=== PATIENT | male | born 1965 | race Caucasian/White ===

== ENCOUNTER 2018-09-21 18:38 | Inpatient (IN) | payer OTHER ==
[~2018-09-21] VITALS: Ht 175.3 cm; Wt 103.0 kg
[2018-09-22] VITALS (21 sets, daily range): BP systolic 115–148; BP diastolic 60–85; PULSE 91–100; RESP 18–32
[2018-09-22] MEDS ORDERED: ACET-2047 PO (02:11)
[2018-09-22] MEDS ORDERED: MORP2DIS2 IV (02:11)
[2018-09-22] MEDS ORDERED: ONDA4AMP IV (02:11)
[2018-09-22] MEDS ORDERED: HEPA500021 IJ (02:11)
[2018-09-22] MEDS ORDERED: MORP4CAR IV (02:11)
[2018-09-22] MEDS ORDERED: POTA20IV IV (02:11)
[2018-09-22] MEDS ORDERED: PIPE3.374 IVPB (02:11)
--- NOTE | 2018-09-22 02:25 | HP ---
Date/Time of Note Date/Time of Note DATE: 09/22/18 TIME: 02:24 Assessment/Plan VTE Prophylaxis SCD applied (from Ns): Yes Pharmacological prophylaxis: NA/contraindicated Pharm contraindication: low risk/ambulating Assessment/Plan Hospital Course This is a 53-year-old male being admitted to the [facility] floor for: #1 gallstone pancreatitis: Patient initially was suspected to have choledocholithiasis and pancreatitis given that he presented with elevated liver function test. The liver function tests have some subsequently improved. At the current time we will check stat CBC CMP and lipase levels. At the current time patient is not complaining of abdominal pain. We will keep the patient n.p.o. Aggressive IV fluid hydration with normal saline. MRCP at the transferring facility was negative for choledocholithiasis and there was no dilatation of the common bile duct noted. Surgery was consulted there and plan was for cholecystectomy. Will check PT/PTT/INR #2 questionable cholecystitis: Patient was seen by surgery at the transfer facility and clinically patient was diagnosed with cholecystitis. At the current time we will keep patient n.p.o., IV fluid hydration with normal saline as per #1. Zosyn every 8 hours. Will consult surgery Dr. Castro #3 obesity: We will check hemoglobin A1c, lipid panel, TSH #4 transaminitis: Initially had elevated AST and ALT which subsequently were downtrending, will check repeat LFTs now. Likely elevated from gallstone which likely passed through the biliary tract. #5 DVT GI prophylaxis: SCDs, no GI prophylaxis indicated Further treatment strategy will be implemented as per the clinical course. HPI/ROS Admit Date/Time Admit Date/Time Sep 22, 2018 at 01:17 Hx of Present Illness Chief complaint: Right-sided abdominal pain This is a 53-year-old gentleman with no past medical history who was diagnosed with gallstone pancreatitis at [facility]. Patient was subsequently transferred to [facility] secondary to insurance purposes. Patient originally presented on 09/18/2018 where he complained of right upper quadrant pain. He also had nausea and vomiting. He reported the pain at that time was 9 out of 10 in intensity and was nonradiating and was mostly roll located in the right upper quadrant though he did have some lower abdominal pain and sharp cramping. He denied any diarrhea or any fevers or chills. He had a CT scan performed in the emergency department which showed: Acute pancreatitis, calcified wall of the fundal region of the gallbladder versus prominent gallstone. Diverticulosis of the colon. Moderate sized hiatal hernia. Nonobstructive tiny stones in the right kidney. Bilateral inguinal hernias containing fat left larger than right. Patient also had an ultrasound of the abdomen showed: Gallstone versus focal calcification of the gallbladder fundus as has been described on the recent CT. Negative sonographic Sanchez's. Patient was admitted to the hospital there and also had an MRCP performed which according to the notes in the chart was negative for any common bile duct stone. Patient was also seen by general surgery and recommendation was to have cholecystectomy as there was clinical concern for possible cholecystitis. Vitals on arrival: Temperature 98.5 heart rate 94 respirations 18 blood pressure 121/67 SPO2 99% room air Pertinent laboratory results please see chart for full details: Sodium 140/potassium 3.3/chloride 104/bicarb 23/BUN 14/creatinine 1.5. Total bili 1.8 direct bili 1.1 AST 656 ALT 693 and alk phos 143 White blood cell 15 hemoglobin 16 hematocrit 46 platelets 251,000 urinalysis negative leukocytes negative nitrites. MRI of the abdomen without contrast showed: Cholelithiasis confirmed on examination. No evidence of biliary ductal dilatation or choledocholithiasis. Acute pancreatitis. Allergies: Flu vaccine medications: None ROS Const: As per HPI Eyes : No pain discharge or redness or change in visual acuity ENT: No pain, sore throat, congestion, congestion, dysphagia or discharge Respiratory: No shortness of breath, cough, sputum, wheezing, or pleuritic pain Cardiovascular: No chest pain, palpitation, PND, or edema GI : As per HPI Genitourinary: No dysuria, hematuria, flank pain , discharge or CVA tenderness Musculoskeletal: No joint pain, back pain, neck pain, restricted range of motion in neck or joints Skin: No rash, bruising or hives Neuro: No headache, dizziness, syncope, seizure, focal weakness Endocrine: No polyuria, polydipsia, temperature intolerance Psych: No hallucination, depression, anxiety or suicidal ideation PMH/Family/Social Past Medical History Medical History: no pertinent history Medications Current Medications Acetaminophen (Tylenol Tab) 650 mg Q6H PRN PO MILD PAIN(1-3)OR ELEVATED TEMP; Start 09/22/18 at 02:30; Status UNV Heparin Sodium (Porcine) (Heparin (5000 Units/0.5 ml)) 5,000 unit Q12 SC ; Start 09/22/18 at 09:00; Status UNV Morphine Sulfate (morphine) 2 mg Q4H PRN IV moderate pain; Start 09/22/18 at 02:30; Status UNV Morphine Sulfate (morphine) 4 mg Q4H PRN IV SEVERE PAIN LEVEL 7-10; Start 09/22/18 at 02:30; Status UNV Ondansetron HCl (Zofran Inj) 4 mg Q4 PRN IV NAUSEA AND/OR VOMITING; Start 09/22/18 at 02:30; Status UNV Miscellaneous Information 3.375 gm Q8 IVPB ; Start 09/22/18 at 06:00; Status UNV Sodium Chloride 1,000 ml @ 200 mls/hr Q5H IV ; Start 09/22/18 at 02:19; Status UNV IV Flush (NS 3 ml) 3 ml PER PROTOCOL IV ; Start 09/22/18 at 02:30; Status UNV Ondansetron HCl (Zofran Inj) 4 mg Q6H PRN IV NAUSEA AND/OR VOMITING; Start 09/22/18 at 02:30; Status UNV Acetaminophen (Tylenol Tab) 650 mg Q6H PRN PO PAIN LEVEL 1-3 OR FEVER; Start 09/22/18 at 02:30; Status UNV Docusate Sodium (Colace) 100 mg Q12H PRN PO CONSTIPATION; Start 09/22/18 at 02:30; Status UNV Bisacodyl (Dulcolax) 5 mg DAILY PRN PO CONSTIPATION; Start 09/22/18 at 02:30; Status UNV Uncoded Allergies: flu vaccine (Allergy, Unknown, 09/22/18) Past Surgical History Past Surgical Hx: no surgical history Family History Significant Family History: no pertinent family hx Social History Alcohol Use: none Smoking Status: Never smoker Drug Use: none Exam/Review of Systems Exam Exam General: Patient is well-developed well-nourished The patient is alert oriented -3 lying comfortably in bed. HEENT: Atraumatic, normocephalic. The pupils are equal, round and reactive. Extraocular motor are intact Neck: Supple with full range of motion. No rigidity or meningismus Chest: Nontender Lungs: Clear to auscultation bilaterally no crackles rales or wheezing Heart: Normal S1-S2, Regular rhythm and rate. No murmur, S3, or S4 Abdomen: Soft , nontender, nondistended , bowel sounds are present. No guarding no rebound tenderness , No masses or organomegaly. No costovertebral temporal angle mass Extremities: Normal to inspection, no edema no cyanosis Neurologic: Normal mental status, speech normal, cranial nerves II through XII are intact, motor and sensory are intact, no focal weakness VAIBHAV SKINNER Sep 22, 2018 02:25
[2018-09-22] MEDS ORDERED: NACL 0.9% 3 ML SYG IV SCH (02:30)
[2018-09-22] MEDS ORDERED: ACETAMINOPHEN 325 MG TAB PO PRN (02:30)
[2018-09-22] MEDS ORDERED: ONDANSETRON 4 MG INJ IV PRN ×3 (02:30→18:30)
[2018-09-22] MEDS ORDERED: BISACODYL (EC) 5 MG TAB PO PRN (02:30)
[2018-09-22] MEDS ORDERED: DOCUSATE SODIUM 100 MG CAP PO PRN (02:30)
[2018-09-22] MEDS: SOD CHLORIDE 0.9% 1,000 ML IV SCH ×4 (02:53→22:34)
[2018-09-22] MEDS ORDERED: PIPER-TAZO 3.375 GM IV (PMX) 100 ML ONE (04:26)
[2018-09-22] MEDS: PIPER-TAZO 3.375 GM IV (PMX) 100 ML IVPB SCH ×4 (05:04→21:59)
[2018-09-22] MEDS: morphine SULFATE/PF (2 MG/2 ML) SYG IV PRN ×2 (06:25→13:51)
[2018-09-22] MEDS ORDERED: DEXAMETHASONE 4 MG/ML 5 ML INJ ONE (07:00)
[2018-09-22] MEDS ORDERED: SUCCINYLCHOLINE CHLORIDE 100 MG/5 ML SYG IV ONE (07:00)
[2018-09-22] MEDS ORDERED: DESFLURANE 15 MIN ONE (07:00)
--- NOTE | 2018-09-22 08:42 | PN ---
Date/Time of Note Date/Time of Note DATE: 09/22/18 TIME: 08:42 Assessment/Plan VTE Prophylaxis Risk score (from Ns)>0 risk: 2 SCD applied (from Ns): Yes Pharmacological prophylaxis: NA/contraindicated Pharm contraindication: low risk/ambulating Lines/Catheters IV Catheter Type (from Nrsg): Peripheral IV Assessment/Plan Assessment/Plan 1. Gallstone pancreatitis- resolved - Lipase normalized and denies any nausea or vomiting - MRCP performed at OSH was negative for choledocholithiasis 2. Cholelithiasis, ? acute cholecystitis - Surgery on board to evaluate need for lap eleazar - Zosyn on board - Pain control - Continue IVF 3. Obesity - diet modification counseling offered 4. Disposition - Awaiting Surgery recommendations and will continue on IV antibiotics and keep NPO for now Result Diagram: 09/22/187 09/22/18 0347 Results 24hrs Laboratory Tests Test 09/22/18 03:47 White Blood Count 14.9 H Red Blood Count 4.05 L Hemoglobin 13.1 L Hematocrit 37.2 L Mean Corpuscular Volume 91.9 Mean Corpuscular Hemoglobin 32.3 Mean Corpuscular Hemoglobin Concent 35.2 Red Cell Distribution Width 12.1 Platelet Count 217 Mean Platelet Volume 10.9 H Immature Granulocytes % 0.500 H Neutrophils % 80.8 H Lymphocytes % 10.4 L Monocytes % 7.2 Eosinophils % 0.9 Basophils % 0.2 Nucleated Red Blood Cells % 0.0 Immature Granulocytes # 0.080 H Neutrophils # 12.0 H Lymphocytes # 1.6 Monocytes # 1.1 H Eosinophils # 0.1 Basophils # 0.0 Nucleated Red Blood Cells # 0.0 Sodium Level 140 Potassium Level 3.5 Chloride Level 106 Carbon Dioxide Level 23 Anion Gap 11 Blood Urea Nitrogen 10 Creatinine 0.62 Est Glomerular Filtrat Rate mL/min > 60 Glucose Level 120 Hemoglobin A1c 5.5 Lactic Acid Level 0.8 Calcium Level 8.8 Total Bilirubin 1.1 Direct Bilirubin 0.00 Indirect Bilirubin 1.1 Aspartate Amino Transf (AST/SGOT) 21 Alanine Aminotransferase (ALT/SGPT) 95 H Alkaline Phosphatase 111 Total Protein 6.9 Albumin 3.5 Globulin 3.40 H Albumin/Globulin Ratio 1.02 Triglycerides Level 107 Cholesterol Level 117 LDL Cholesterol, Calculated 74 HDL Cholesterol 22 L Cholesterol/HDL Ratio 5.3 Lipase 57 Subjective 24 Hr Interval Summary Free Text/Dictation Patient states he's feeling better but still with RUQ discomfort. Discussed his LFT and lipase normalizing overnight. Pending Surgical evaluation. Exam/Review of Systems Vital Signs Vitals Vital Signs Date Temp Pulse Resp B/P (MAP) Pulse Ox O2 O2 Flow FiO2 Time Delivery Rate 09/22/18 98.9 91 19 115/60 96 Room Air 08:00 (78) Intake and Output 09/21/18 09/21/18 09/22/18 1515:00 23:00 07:00 IntakeIntake Total 500 ml BalanceBalance 500 ml Exam General: Patient is well-developed well-nourished. no acute distress Neck: Supple Chest: Nontender Lungs: Clear to auscultation bilaterally no crackles rales or wheezing Heart: Normal S1-S2, Regular rhythm and rate. No murmur, S3, or S4 Abdomen: Soft , tender to palpation RUQ, +Sanchez sign, nondistended , bowel sounds are present. No guarding no rebound tenderness Extremities: Normal to inspection, no edema no cyanosis Medications Medications Current Medications Heparin Sodium (Porcine) (Heparin (5000 Units/0.5 ml)) 5,000 unit Q12 SC ; Start 09/22/18 at 09:00 Morphine Sulfate (morphine SULFATE (PF)) 2 mg Q4H PRN IV moderate pain Last administered on 09/22/18at 06:25; Admin Dose 2 MG; Start 09/22/18 at 02:30 Morphine Sulfate (morphine) 4 mg Q4H PRN IV SEVERE PAIN LEVEL 7-10; Start 09/22/18 at 02:30 Ondansetron HCl (Zofran Inj) 4 mg Q4 PRN IV NAUSEA AND/OR VOMITING; Start 09/22/18 at 02:30 Sodium Chloride 1,000 ml @ 200 mls/hr Q5H IV Last administered on 09/22/18at 02:53; Admin Dose 200 MLS/HR; Start 09/22/18 at 02:19 IV Flush (NS 3 ml) 3 ml PER PROTOCOL IV ; Start 09/22/18 at 02:30 Acetaminophen (Tylenol Tab) 650 mg Q6H PRN PO PAIN LEVEL 1-3 OR FEVER; Start 09/22/18 at 02:30 Docusate Sodium (Colace) 100 mg Q12H PRN PO CONSTIPATION; Start 09/22/18 at 02:30 Bisacodyl (Dulcolax) 5 mg DAILY PRN PO CONSTIPATION; Start 09/22/18 at 02:30 Piperacillin Sod/ Tazobactam Sod 100 ml @ 200 mls/hr Q8 IVPB Last administered on 09/22/18at 05:04; Admin Dose 200 MLS/HR; Start 09/22/18 at 06:00 RADHA HERNANDES MD Sep 22, 2018 08:42
[2018-09-22] MEDS: HEPARIN 5,000 UNIT/0.5 ML VIAL SC SCH ×2 (09:00→21:00)
--- NOTE | 2018-09-22 14:57 | CONS ---
Date/Time of Note Date/Time of Note DATE: 09/22/18 TIME: 14:31 Assessment/Plan Assessment/Plan Assessment/Plan 1. Gallstone pancreatitis: Lipase normalized 2. 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 Diverticulosis without diverticulitis: -Lifestyle changes 4. Mild fatty liver: With minimally elevated ALT -Encourage weight loss 5. Bilateral inguinal hernias -Encourage weight loss -Eventual surgical repair 6. Leukocytosis:Improving -Trend 7. Hyperbilirubinemia: No MR evidence of choledocholithiasis, normalized Thank you. Patient seen and examined in collaboration with Dr. Freddie Castro. Result Diagram: 09/22/1834609/22/18 034 Results 24hrs Laboratory Tests Test 09/22/18 03:47 09/22/18 07:17 White Blood Count 14.9 H Red Blood Count 4.05 L Hemoglobin 13.1 L Hematocrit 37.2 L Mean Corpuscular Volume 91.9 Mean Corpuscular Hemoglobin 32.3 Mean Corpuscular Hemoglobin Concent 35.2 Red Cell Distribution Width 12.1 Platelet Count 217 Mean Platelet Volume 10.9 H Immature Granulocytes % 0.500 H Neutrophils % 80.8 H Lymphocytes % 10.4 L Monocytes % 7.2 Eosinophils % 0.9 Basophils % 0.2 Nucleated Red Blood Cells % 0.0 Immature Granulocytes # 0.080 H Neutrophils # 12.0 H Lymphocytes # 1.6 Monocytes # 1.1 H Eosinophils # 0.1 Basophils # 0.0 Nucleated Red Blood Cells # 0.0 Sodium Level 140 Potassium Level 3.5 Chloride Level 106 Carbon Dioxide Level 23 Anion Gap 11 Blood Urea Nitrogen 10 Creatinine 0.62 Est Glomerular Filtrat Rate mL/min > 60 Glucose Level 120 Hemoglobin A1c 5.5 Lactic Acid Level 0.8 Calcium Level 8.8 Total Bilirubin 1.1 Direct Bilirubin 0.00 Indirect Bilirubin 1.1 Aspartate Amino Transf (AST/SGOT) 21 Alanine Aminotransferase (ALT/SGPT) 95 H Alkaline Phosphatase 111 Total Protein 6.9 Albumin 3.5 Globulin 3.40 H Albumin/Globulin Ratio 1.02 Triglycerides Level 107 Cholesterol Level 117 LDL Cholesterol, Calculated 74 HDL Cholesterol 22 L Cholesterol/HDL Ratio 5.3 Lipase 57 Prothrombin Time 14.2 Prothrombin Time Ratio 1.1 INR International Normalized Ratio 1.09 Activated Partial Thromboplast Time 39.7 H Consultation Date/Type/Reason Admit Date/Time Sep 22, 2018 at 01:17 Date of Consultation: Sep 22, 2018 Type of Consult Surgical Reason for Consultation Cholelithiasis, gallstone pancreatitis Requesting Provider: VAIBHAV SKINNER Hx of Present Illness Ivan Guajardo is a 53-year-old man without significant past medical history who was transferred from outside facility with diagnosis of gallstone pancreatitis. He initially presented to outside hospital with complaints of abdominal pain periumbilical. Pain was described as sharp and cramping. He denies fevers chills, congested cough, chest pain, palpitations, change in bowel or bladder habits, diarrhea, dysuria. No noted precipitating factors. CT of the abdomen showed enlargement of the pancreas with moderate peripancreatic inflammation consistent with acute pancreatitis, Calcified wall the fundal region of gallbladder versus gallstone. Laboratory findings include elevated WBC of 15.6, elevated total bilirubin and ALT, as well as elevated lipase. MRCP was performed without evidence of choledocholithiasis. He was also being treated for possible cholecystitis at outside hospital. On exam, he is comfortable. No acute abdominal pain with negative Sanchez's by palpation. General surgery was asked to evaluate. 12 point review of systems was performed and is negative except for stated in HPI. Past Medical History Obesity: BMI 34 Cholelithiasis Medications Current Medications Heparin Sodium (Porcine) (Heparin (5000 Units/0.5 ml)) 5,000 unit Q12 SC ; Start 09/22/18 at 09:00 Morphine Sulfate (morphine SULFATE (PF)) 2 mg Q4H PRN IV moderate pain Last administered on 09/22/18at 13:51; Admin Dose 2 MG; Start 09/22/18 at 02:30 Morphine Sulfate (morphine) 4 mg Q4H PRN IV SEVERE PAIN LEVEL 7-10; Start 09/22/18 at 02:30 Ondansetron HCl (Zofran Inj) 4 mg Q4 PRN IV NAUSEA AND/OR VOMITING; Start 09/22/18 at 02:30 Sodium Chloride 1,000 ml @ 100 mls/hr Q10H IV Last administered on 09/22/18at 10:01; Admin Dose 200 MLS/HR; Start 09/22/18 at 02:19 IV Flush (NS 3 ml) 3 ml PER PROTOCOL IV ; Start 09/22/18 at 02:30 Acetaminophen (Tylenol Tab) 650 mg Q6H PRN PO PAIN LEVEL 1-3 OR FEVER; Start 09/22/18 at 02:30 Docusate Sodium (Colace) 100 mg Q12H PRN PO CONSTIPATION; Start 09/22/18 at 02:30 Bisacodyl (Dulcolax) 5 mg DAILY PRN PO CONSTIPATION; Start 09/22/18 at 02:30 Piperacillin Sod/ Tazobactam Sod 100 ml @ 200 mls/hr Q8 IVPB Last administered on 09/22/18at 13:46; Admin Dose 200 MLS/HR; Start 09/22/18 at 06:00 Allergies: Uncoded Allergies: flu vaccine (Allergy, Unknown, 09/22/18) Past Surgical History Past Surgical Hx: no surgical history Family History Significant Family History: no pertinent family hx Social History Alcohol Use: other (Every 2 weeks 6-8 beers) Smoking Status: Never smoker Drug Use: none Exam/Review of Systems Vital Signs Vitals Vital Signs Date Temp Pulse Resp B/P (MAP) Pulse Ox O2 O2 Flow FiO2 Time Delivery Rate 09/22/18 98.9 91 19 115/60 96 Room Air 08:00 (78) Intake and Output 09/21/18 09/21/18 09/22/18 1515:00 23:00 07:00 IntakeIntake Total 500 ml BalanceBalance 500 ml Exam Constitutional: alert, oriented Psych: nl mood/affect; No anxiety Head: normocephalic, atraumatic Eyes: nl conjunctiva, EOMI, nl sclera ENMT: nl external ears & nose, nl lips & teeth, mucosa pink and moist Neck: supple, non-tender; No jvd Respiratory: No congested cough Cardiovascular: regular rate and rhythm, nl pulses; No edema Gastrointestinal: soft, non-tender, distended ( minimal) Musculoskeletal: nl extremities to inspection, nl gait and stance Extremities: normal pulses Neurological: nl mental status, nl speech, nl strength Skin: No rash or lesions Medications Medications Current Medications Heparin Sodium (Porcine) (Heparin (5000 Units/0.5 ml)) 5,000 unit Q12 SC ; Start 09/22/18 at 09:00 Morphine Sulfate (morphine SULFATE (PF)) 2 mg Q4H PRN IV moderate pain Last administered on 09/22/18at 13:51; Admin Dose 2 MG; Start 09/22/18 at 02:30 Morphine Sulfate (morphine) 4 mg Q4H PRN IV SEVERE PAIN LEVEL 7-10; Start 09/22 at 02:30 Ondansetron HCl (Zofran Inj) 4 mg Q4 PRN IV NAUSEA AND/OR VOMITING; Start 09/22/18 at 02:30 Sodium Chloride 1,000 ml @ 100 mls/hr Q10H IV Last administered on 09/22/18at 10:01; Admin Dose 200 MLS/HR; Start 09/22/18 at 02:19 IV Flush (NS 3 ml) 3 ml PER PROTOCOL IV ; Start 09/22/18 at 02:30 Acetaminophen (Tylenol Tab) 650 mg Q6H PRN PO PAIN LEVEL 1-3 OR FEVER; Start 09/22/18 at 02:30 Docusate Sodium (Colace) 100 mg Q12H PRN PO CONSTIPATION; Start 09/22/18 at 02:30 Bisacodyl (Dulcolax) 5 mg DAILY PRN PO CONSTIPATION; Start 09/22/18 at 02:30 Piperacillin Sod/ Tazobactam Sod 100 ml @ 200 mls/hr Q8 IVPB Last administered on 09/22/18at 13:46; Admin Dose 200 MLS/HR; Start 09/22/18 at 06:00 RACHEL BOBBY NP Sep 22, 2018 14:57
--- NOTE | 2018-09-22 18:06 | PREAC ---
Date/Time of Note Date/Time of Note DATE: 09/22/18 TIME: 18:05 Anesthesia Eval and Record Evaluation Time Pre-Procedure Interview DATE: 09/22/18 TIME: 18:05 Age 53 Sex male NPO: 8 hrs Preoperative diagnosis acute pancreatitis Planned procedure lap eleazar Past Medical History Past Medical History: Includes GI: Obesity, Other (fatty liver) Surgery & Anesthesia Issues No known issue Meds Anticoagulation: No Beta Marv within 24 hr: No Reason Beta Marv not given: Pt. not on B-Marv Reported Medications Morphine (Morphine) 2 Mg/1 Ml Disp.syrin, 2 MG IV Q4H PRN for moderate pain, EA 09/22/18 Morphine Sulfate* (Morphine*) 4 Mg/1 Ml Cartridge, 4 MG IV Q4H PRN for SEVERE PAIN LEVEL 7-10, SYR 09/22/18 Heparin Sodium,Porcine/Pf (HEPARIN SOD 5,000 UNIT/ 0.5 ML) 5,000 Unit/0.5 Ml Vial, 5000 UNIT IJ Q12, VIAL 09/22/18 Potassium Chloride/D5-0.45NACL (KCl 20 Meq in D5w-0.45% NaCl) 20 Meq/1000 Ml Iv.soln, 20 MEQ IV q10 100 ml/hr 09/22/18 Acetaminophen* (Acetaminophen*) 650 Mg Tablet, 650 MG PO Q6H PRN for PAIN AND OR ELEVATED TEMP, #30 TAB 09/22/18 Ondansetron Hcl* (Ondansetron Hcl* Inj) 4 Mg/2 Ml Ampul, 4 MG IV Q4 PRN for N AUSEA AND/OR VOMITING, AMP 09/22/18 [id number],Iso (ZOSYN 3.375 GM GALAXY BAG) 3.375 Gm/50 Ml Froz.piggy, 3.375 GM IVPB Q8, EA 09/22/18 Current Medications Heparin Sodium (Porcine) (Heparin (5000 Units/0.5 ml)) 5,000 unit Q12 SC ; Start 09/22/18 at 09:00 Morphine Sulfate (morphine SULFATE (PF)) 2 mg Q4H PRN IV moderate pain Last administered on 09/22/18at 13:51; Admin Dose 2 MG; Start 09/22/18 at 02:30 Morphine Sulfate (morphine) 4 mg Q4H PRN IV SEVERE PAIN LEVEL 7-10; Start 09/22/18 at 02:30 Ondansetron HCl (Zofran Inj) 4 mg Q4 PRN IV NAUSEA AND/OR VOMITING; Start 09/22/18 at 02:30 Sodium Chloride 1,000 ml @ 100 mls/hr Q10H IV Last administered on 09/22/18at 10:01; Admin Dose 200 MLS/HR; Start 09/22/18 at 02:19 IV Flush (NS 3 ml) 3 ml PER PROTOCOL IV ; Start 09/22/18 at 02:30 Acetaminophen (Tylenol Tab) 650 mg Q6H PRN PO PAIN LEVEL 1-3 OR FEVER; Start 09/22/18 at 02:30 Docusate Sodium (Colace) 100 mg Q12H PRN PO CONSTIPATION; Start 09/22/18 at 02:30 Bisacodyl (Dulcolax) 5 mg DAILY PRN PO CONSTIPATION; Start 09/22/18 at 02:30 Piperacillin Sod/ Tazobactam Sod 100 ml @ 200 mls/hr Q8 IVPB Last administered on 09/22/18at 13:46; Admin Dose 200 MLS/HR; Start 09/22/18 at 06:00 Meds reviewed: Yes Allergies Uncoded Allergies: flu vaccine (Allergy, Unknown, 09/22/18) Allergies Reviewed: Yes Labs/Studies Labs Reviewed: Reviewed by anesthesiologist Result Diagram: 09/22/18 0347 09/22/18 0347 Laboratory Tests 09/22/18 03:47 test: N/A Pre-procedure Exam Last vitals Vital Signs Date Temp Pulse Resp B/P (MAP) Pulse Ox O2 O2 Flow FiO2 Time Delivery Rate 09/22/18 97.9 94 20 123/64 98 Room Air 14:45 (83) Airway: Adequate mouth opening, Adequate thyromental dist Mallampati: Mallampati II Teeth: Normal Lung: Normal Heart: Normal ASA Physical Status ASA physical status: 2 Emergency: None Planned Anesthetic General/MAC: ETT Planned Pain Management Single shot nerve block, Parenteral pain med Pre-operative Attestations Prior to commencing anesthesia and surgery, the patient was re-evaluated, there was verification of: *The patient's identity *The results of appropriate recent lab work and preoperative vital signs *The above evaluation not changing prior to induction *Anesthetic plan, risk benefits, alternative and complications discussed with patient/family; questions answered; patient/family understands, accepts and wishes to proceed. Moody Skinner M.D. Sep 22, 2018 18:06
[2018-09-22] MEDS ORDERED: GLYCOPYRROLATE 0.4 MG INJ ONE (18:09)
[2018-09-22] MEDS ORDERED: CEFAZOLIN 1 GM INJ ONE (18:09)
[2018-09-22] MEDS ORDERED: NEOSTIGMINE 3 MG/3 ML SYRINGE ONE (18:09)
[2018-09-22] MEDS ORDERED: PROPOFOL 20 ML ONE (18:09)
[2018-09-22] MEDS ORDERED: ROCURONIUM 50 MG INJ ONE (18:09)
[2018-09-22] MEDS ORDERED: MIDAZOLAM 1 MG/ML 2 ML INJ ONE (18:11)
[2018-09-22] MEDS ORDERED: FENTAnyl 50 MCG/ML VIAL ONE (18:11)
[2018-09-22] MEDS ORDERED: ONDANSETRON 4 MG INJ ONE (18:12)
[2018-09-22] MEDS ORDERED: IPRATROPIUM (NEB) 0.5 MG/2.5 ML AMP HHN PRN (18:30)
[2018-09-22] MEDS ORDERED: LABETALOL HCL 20MG INJ IV PRN (18:30)
[2018-09-22] MEDS ORDERED: TRIMETHOBENZAMIDE 100 MG/ML VIAL IM PRN (18:30)
[2018-09-22] MEDS ORDERED: EPHEDrine SULFATE 50 MG/5 ML SYG IV PRN (18:30)
[2018-09-22] MEDS ORDERED: MIDAZOLAM 1 MG/ML 2 ML INJ IV PRN (18:30)
[2018-09-22] MEDS ORDERED: hydrALAzine 20 MG INJ IV PRN (18:30)
[2018-09-22] MEDS ORDERED: ALBUTEROL 0.083% (NEB) 2.5 MG/3 ML AMP HHN PRN (18:30)
[2018-09-22] MEDS ORDERED: HYDROmorphONE 1 MG/5 ML IV SYRINGE IV PRN ×3 (18:30)
[2018-09-22] MEDS ORDERED: FENTAnyl 50 MCG/ML VIAL IV PRN ×3 (18:30)
[2018-09-22] MEDS ORDERED: OXYCODONE/ACETAMINOPHEN (5/325) TAB PO PRN ×2 (18:30)
[2018-09-22] MEDS ORDERED: MEPERIDINE 25 MG INJ IV PRN (18:30)
[2018-09-22] MEDS ORDERED: DIPHENHYDRAMINE 50 MG INJ IV PRN (18:30)
--- NOTE | 2018-09-22 18:54 | OPR ---
Date/Time of Note Date/Time of Note DATE: 09/22/18 TIME: 18:50 Operative Report Free Text/Dictation Preoperative Diagnosis: Symptomatic cholelithiasis and possible cholecystitis Gallstone pancreatitis Porcelain gallbladder Transaminitis and hyperbilirubinemia, improving. Negative MRCP BMI 33 Postoperative Diagnosis: Symptomatic cholelithiasis Acute on chronic cholecystitis Gallstone pancreatitis Porcelain gallbladder Transaminitis and hyperbilirubinemia, improving. Negative MRCP BMI 33 Very difficult operation due to intrahepatic gallbladder that scarred down and deep underneath the liver with a large liver and the deep abdomen Operation(s) Performed: 1. Laparoscopic cholecystectomy 2. Laparoscopic liver wedge resection biopsy 3. Difficult operation, modifier 22 4. Local anesthetic [place], [address] 5. Laparoscopic guided bilateral transversus abdominis plane block Surgeon: Russ Rubio MD Pad Extraction Tender: None Anesthesia: general, local, & regional Anesthesiologist: Moody Carey MD Estimated Blood Loss: 100 ml's Specimens: Gallbladder Liver Tubes/Drains: 19f Zhen Complications: None Pt Condition Post Procedure: stable Disposition: PACU Indications: 53-year-old female with gallstones, leukocytosis, abnormal LFTs, pancreatitis, and abdominal pain here for cholecystectomy. Risks include but are not limited to bleeding, infection, abscess, seroma, damage to intestines, damage to the liver, damage to biliary tree, hernia formation, chronic pain, biloma, need for reoperations or further surgeries, IA, stroke, PE, DVT, pneumonia, organ failures, or even . Procedure Description: Patient was brought and placed supine on the operating table SCDs were placed, preoperative antibiotics were administered, all pressure points were well- padded, and after induction of anesthesia patient was prepped and draped in usual sterile fashion and timeout was performed. Incision was made in the supraumbilical region, Veress was safely inserted, and after a negative SIP test, abdomen was insufflated to 15mmHg. Veress was removed and 5mm port was safely inserted. Laparoscopy was performed with a 5 mm 30 scope. No injuries were identified. The liver looks somewhat abnormal color. The gallbladder is thickened with evidence of inflammation and infection however contracted and deep underneath the liver and the deep abdomen. 12 mm port is placed in subxiphoid under direct visualization followed by other 5 mm port in the right upper quadrant. All port sites were injected with quarter percent Marcaine with epi and 1% lidocaine prior to any incisions. Laparoscopic bilateral transversus abdominis plane block was performed to aid with pain control interim postoperatively. Patient was placed in reverse Trendelenburg and right side up on gallbladder was retracted superolaterally. The gallbladder was thickened, difficult to grasp, deep posteriorly underneath the liver. Using electrocautery and blunt dissection I removed meticulously to dissect the peritoneum off of the gallbladder on both sides. I had to do a top down approach due to the significant inflammation and deep location of the gallbladder. There was also oozing from all raw surfaces. The gallbladder was ruptured by grasping it at some point there was spillage of bile and stones which had to be picked up individually and removed. I was able to finally identify the cystic artery and cystic duct. The duct was slightly dilated but tapered into the gallbladder. Full critical angle view was identified. Due to the difficulty of the surgery I elected not to proceed with cholangiogram because obtaining it would be difficult. Patient has a negative MRCP. Cystic artery was clipped twice proximally once distally and then transected. There was a posterior branch which also had to be clipped. Endo PATITO white load 35 minutes stapler was used to transect the cystic duct. Gallbladder was placed in the Endo Catch bag and removed through the subxiphoid port site which had to be enlarged to allow extraction of the large thickened gallbladder with lots of impacted stones. Due to the abnormality of the liver, decision was made to perform liver wedge resection which was done with electrocautery and scissor with complete hemostasis right after. The specimen was sent to pathology for further evaluation. Abdomen was irrigated with warm saline to clear suctioning fluid. 19 [place]onese Zhen was placed in the abdomen through the lateral 5 mm port and secured with 2-0 nylon. 12 mm made port site fascia was closed with Endo Close of an 0 Vicryl in a [id number] manner. Ports and CO2 were removed under direct visualization. Next complete hemostasis. Wounds were thoroughly irrigated skin was closed with 4-0 Monocryl in subcuticular fashion. Dermabond was applied. Patient was extubated and transferred to recovery room in stable condition and all counts were correct and the end of the operation 2. RUSS RUBIO MD Sep 22, 2018 18:54
[2018-09-22] MEDS ORDERED: PHENYLephrine (100 MCG/ML) 10ML SYG ONE (19:01)
[2018-09-22] MEDS ORDERED: LIDOCAINE 1% (MPF) 30 ML INJ INJ ONE (19:38)
[2018-09-22] MEDS ORDERED: BUPIVACAINE 0.5%/EPI (SDV) 30 ML INJ INJ ONE (19:38)
[2018-09-22] MEDS ORDERED: SUGAMMADEX SODIUM 200 MG/2 ML VIAL IV ONE (20:18)
--- NOTE | 2018-09-22 20:38 | PAC ---
Date/Time of Note Date/Time of Note DATE: 09/22/18 TIME: 20:37 Post-Anesthesia Notes Post-Anesthesia Note Last documented vital signs Vital Signs Date Temp Pulse Resp B/P (MAP) Pulse Ox O2 O2 Flow FiO2 Time Delivery Rate 09/22/18 97.9 94 20 123/64 98 Room Air 20:37 (83) Activity: WNL Respiratory function: WNL Cardiovascular function: WNL Mental status: Baseline Pain reasonably controlled: Yes Hydration appropriate: Yes Nausea/Vomiting absent: Yes Moody Skinner M.D. Sep 22, 2018 20:38
[2018-09-22] MEDS: morphine 4 MG/ML VIAL IV PRN (22:34)
[2018-09-23] VITALS (17 sets, daily range): BP systolic 110–150; BP diastolic 65–86; PULSE 78–106; RESP 16–20
[2018-09-23] MEDS: morphine 4 MG/ML VIAL IV PRN ×4 (02:41→15:56)
[2018-09-23] MEDS: SOD CHLORIDE 0.9% 1,000 ML IV SCH ×2 (04:59→14:52)
--- NOTE | 2018-09-23 09:00 | PN ---
Date/Time of Note Date/Time of Note DATE: 09/23/18 TIME: 09:00 Assessment/Plan VTE Prophylaxis Risk score (from Ns)>0 risk: 8 SCD applied (from Ns): Yes Pharmacological prophylaxis: NA/contraindicated Pharm contraindication: surgical contra Lines/Catheters IV Catheter Type (from Nrsg): Peripheral IV Assessment/Plan Assessment/Plan 1. Cholelithiasis with ?acute cholecystitis s/p lap eleazar 09/22/18 - Patient tolerated surgical intervention well and pain well controlled - Surgery on board and consultation appreciated - LFT elevated and concerns for choledocholithiasis and GI was consulted 2. Possible choledolcholithasis - Direct bili elevated as well as LFT and concerned for movement of stone during surgical intervention - Initial MRCP at OSH was negative - GI on board and recommendations appreciated. Plans for ERCP today to assess 3. Obesity - diet modification counseling offered 4. Disposition - Plans for ERCP today and will monitor for improvement in LFTs after procedure Result Diagram: 09/23/18 0614 09/23/1814 Results 24hrs Laboratory Tests Test 09/23/18 06:14 White Blood Count 16.0 H Red Blood Count 3.80 L Hemoglobin 12.2 L Hematocrit 35.4 L Mean Corpuscular Volume 93.2 Mean Corpuscular Hemoglobin 32.1 Mean Corpuscular Hemoglobin Concent 34.5 Red Cell Distribution Width 12.3 Platelet Count 202 Mean Platelet Volume 11.2 H Immature Granulocytes % 0.500 H Neutrophils % 83.2 H Lymphocytes % 8.6 L Monocytes % 7.1 Eosinophils % 0.3 Basophils % 0.3 Nucleated Red Blood Cells % 0.0 Immature Granulocytes # 0.080 H Neutrophils # 13.3 H Lymphocytes # 1.4 Monocytes # 1.1 H Eosinophils # 0.1 Basophils # 0.0 Nucleated Red Blood Cells # 0.0 Sodium Level 139 Potassium Level 3.9 Chloride Level 105 Carbon Dioxide Level 21 Anion Gap 13 Blood Urea Nitrogen 10 Creatinine 0.60 L Est Glomerular Filtrat Rate mL/min > 60 Glucose Level 97 Calcium Level 8.4 Magnesium Level 1.9 Total Bilirubin 3.6 #H Direct Bilirubin 2.50 #H Indirect Bilirubin 1.1 Aspartate Amino Transf (AST/SGOT) 112 #H Alanine Aminotransferase (ALT/SGPT) 115 H Alkaline Phosphatase 170 #H Total Protein 6.5 Albumin 3.1 L Globulin 3.40 H Albumin/Globulin Ratio 0.91 Thyroid Stimulating Hormone (TSH) 1.350 Subjective 24 Hr Interval Summary Free Text/Dictation Patient complaining of abdominal pain s/p surgical intervention but improves after pain medications given. Denies any fevers, chills, nausea, vomiting, dizziness, shortness of breath, or chest pain. Exam/Review of Systems Vital Signs Vitals Vital Signs Date Temp Pulse Resp B/P (MAP) Pulse Ox O2 O2 Flow FiO2 Time Delivery Rate 09/23/18 98.7 103 18 131/81 94 08:04 (98) 09/22/18 Room Air 21:34 09/22/18 2.0 20:39 Intake and Output 09/22/18 09/22/18 09/23/18 1515:00 23:00 07:00 IntakeIntake Total 700 ml 800 ml 340 ml OutputOutput Total 515 ml 75 ml BalanceBalance 700 ml 285 ml 265 ml Exam General: Patient is well-developed well-nourished. no acute distress Neck: Supple Chest: Nontender Lungs: Clear to auscultation bilaterally no crackles rales or wheezing Heart: Normal S1-S2, Regular rhythm and rate. No murmur, S3, or S4 Abdomen: Soft , diffuse tenderness, nondistended , bowel sounds are present. No guarding no rebound tenderness Extremities: Normal to inspection, no edema no cyanosis Medications Medications Current Medications Heparin Sodium (Porcine) (Heparin (5000 Units/0.5 ml)) 5,000 unit Q12 SC ; Start 09/22/18 at 09:00 Morphine Sulfate (morphine SULFATE (PF)) 2 mg Q4H PRN IV moderate pain Last administered on 09/22/18at 13:51; Admin Dose 2 MG; Start 09/22/18 at 02:30 Morphine Sulfate (morphine) 4 mg Q4H PRN IV SEVERE PAIN LEVEL 7-10 Last administered on 09/23/18at 07:01; Admin Dose 4 MG; Start 09/22/18 at 02:30 Ondansetron HCl (Zofran Inj) 4 mg Q4 PRN IV NAUSEA AND/OR VOMITING Last administered on 09/22/18at 20:43; Admin Dose 4 MG; Start 09/22/18 at 02:30 Sodium Chloride 1,000 ml @ 100 mls/hr Q10H IV Last administered on 09/23/18at 04:59; Admin Dose 100 MLS/HR; Start 09/22/18 at 02:19 IV Flush (NS 3 ml) 3 ml PER PROTOCOL IV ; Start 09/22/18 at 02:30 Acetaminophen (Tylenol Tab) 650 mg Q6H PRN PO PAIN LEVEL 1-3 OR FEVER; Start 09/22/18 at 02:30 Docusate Sodium (Colace) 100 mg Q12H PRN PO CONSTIPATION; Start 09/22/18 at 02:30 Bisacodyl (Dulcolax) 5 mg DAILY PRN PO CONSTIPATION; Start 09/22/18 at 02:30 Piperacillin Sod/ Tazobactam Sod 100 ml @ 200 mls/hr Q8 IVPB Last administered on 09/22/18at 21:59; Admin Dose 200 MLS/HR; Start 09/22/18 at 06:00 RADHA HERNANDES MD Sep 23, 2018 09:00
[2018-09-23] MEDS: HEPARIN 5,000 UNIT/1 ML VIAL SC SCH ×2 (10:47→21:38)
--- NOTE | 2018-09-23 13:38 | PN ---
Date/Time of Note Date/Time of Note DATE: 09/23/18 TIME: 13:35 Assessment/Plan Lines/Catheters IV Catheter Type (from [facility]): Peripheral IV Assessment/Plan Chief Complaint/Hosp Course 1. Gallstone pancreatitis: Lipase normalized 2. 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 Hyperbilirubinemia: No MR evidence of choledocholithiasis on prior scan; normalized and now elevated; concern for choledocholithiasis -Repeat MRCP versus ERCP -GI consult for ERCP 4. Mild fatty liver: With minimally elevated ALT; status post liver wedge biopsy -Follow pathology -Encourage weight loss 5. Bilateral inguinal hernias -Encourage weight loss -Eventual surgical repair 6. Leukocytosis: -Trend 7. Diverticulosis without diverticulitis: -Lifestyle changes Thank you. Patient seen and examined in collaboration with Dr. Freddie Castro. Subjective 24 Hr Interval Summary Feels well. Minimal tenderness around incision site. No fevers, chills, sob, congested cough, cp, palpitations, barr, dizziness, nausea, vomiting, diarrhea, dysuria. Exam/Review of Systems Vital Signs Vitals Vital Signs Date Temp Pulse Resp B/P (MAP) Pulse Ox O2 O2 Flow FiO2 Time Delivery Rate 09/23/18 98.7 103 18 131/81 94 08:04 (98) 09/22/18 Room Air 21:34 09/22/18 2.0 20:39 Intake and Output 09/22/18 09/22/18 09/23/18 1515:00 23:00 07:00 IntakeIntake Total 700 ml 800 ml 340 ml OutputOutput Total 515 ml 75 ml BalanceBalance 700 ml 285 ml 265 ml Exam Free Text/Dictation Constitutional: alert, oriented Psych: nl mood/affect; No anxiety Head: normocephalic, atraumatic Eyes: nl conjunctiva, EOMI, nl sclera ENMT: nl external ears & nose, nl lips & teeth, mucosa pink and moist Neck: supple, non-tender; No jvd Respiratory: No congested cough Cardiovascular: regular rate and rhythm, nl pulses; No edema Gastrointestinal: soft, distended ( minimal); tender (tod-incisional: Incision sites dry without drainage/discoloration/bruising; DANNI with serosanguineous drainage) Musculoskeletal: nl extremities to inspection, nl gait and stance Extremities: normal pulses Neurological: nl mental status, nl speech, nl strength Skin: No rash or lesions Results Result Diagram: 09/23/1861309/23/1814 RACHEL BOBBY NP Sep 23, 2018 13:38
--- NOTE | 2018-09-23 13:49 | CONS ---
Date/Time of Note Date/Time of Note DATE: 09/23/18 TIME: 13:49 Assessment/Plan Assessment/Plan Hospital Course Summary Assessment and Plan: Assessment: Gallstone pancreatitis -Status post cholecystectomy 09/22/18 Direct hyperbilirubinemia with elevated LFTs Leukocytosis Diverticulosis without diverticulitis: Mild fatty liver ETOH use Plan: N.p.o. Possible ERCP today pending ability in our Endoscopy - risks/benefits/alternatives/indications of procedure and sedation/anesthesia discussed with patient who states understanding and gives informed consent to proceed. Monitor labs Patient seen in collaboration with Dr. Nelson Result Diagram: 09/23/1814 09/23/1814 Results 24hrs Laboratory Tests Test 09/23/18 06:14 White Blood Count 16.0 H Red Blood Count 3.80 L Hemoglobin 12.2 L Hematocrit 35.4 L Mean Corpuscular Volume 93.2 Mean Corpuscular Hemoglobin 32.1 Mean Corpuscular Hemoglobin Concent 34.5 Red Cell Distribution Width 12.3 Platelet Count 202 Mean Platelet Volume 11.2 H Immature Granulocytes % 0.500 H Neutrophils % 83.2 H Lymphocytes % 8.6 L Monocytes % 7.1 Eosinophils % 0.3 Basophils % 0.3 Nucleated Red Blood Cells % 0.0 Immature Granulocytes # 0.080 H Neutrophils # 13.3 H Lymphocytes # 1.4 Monocytes # 1.1 H Eosinophils # 0.1 Basophils # 0.0 Nucleated Red Blood Cells # 0.0 Sodium Level 139 Potassium Level 3.9 Chloride Level 105 Carbon Dioxide Level 21 Anion Gap 13 Blood Urea Nitrogen 10 Creatinine 0.60 L Est Glomerular Filtrat Rate mL/min > 60 Glucose Level 97 Calcium Level 8.4 Magnesium Level 1.9 Total Bilirubin 3.6 #H Direct Bilirubin 2.50 #H Indirect Bilirubin 1.1 Aspartate Amino Transf (AST/SGOT) 112 #H Alanine Aminotransferase (ALT/SGPT) 115 H Alkaline Phosphatase 170 #H Total Protein 6.5 Albumin 3.1 L Globulin 3.40 H Albumin/Globulin Ratio 0.91 Thyroid Stimulating Hormone (TSH) 1.350 CC: AISSATOU NELSON MD ; Consultation Date/Type/Reason Admit Date/Time Sep 22, 2018 at 01:17 Date of Consultation: Sep 23, 2018 Type of Consult GI Reason for Consultation Direct hyperbilirubinemia/Elevated LFTs post cholecystectomy Hx of Present Illness This is a 53-year-old male who presented to an outside hospital with complaints of upper abdominal pain patient was diagnosed with gallstone pancreatitis in the ER, MRCP at that time which was negative for choledocholithiasis or common bile duct obstruction. Transferred to [facility] for insurance reasons after evaluation here patient's lipase had normalized abdominal pain had improved patient underwent a cholecystectomy with liver wedge biopsy 09/22/18. Today labs were obtained increased elevation and total bilirubin primarily direct was noted as well as an increase in AST, ALT, alkaline phosphatase. She has been consulted for further evaluation. Given history and labs patient will require ERCP we will tentatively plan this procedure today. Discussed risk/ benefits/alternatives with patient verbalized understanding and is agreeable. Socially patient denies smoking or history of drug use. He states he drinks alcohol about 7-8 beers every weekend. Review of Systems: A 12 system, review was conducted and is negative except as noted in the HPI or here. Past Medical History Medications Current Medications Morphine Sulfate (morphine SULFATE (PF)) 2 mg Q4H PRN IV moderate pain Last administered on 09/22/18at 13:51; Admin Dose 2 MG; Start 09/22/18 at 02:30 Morphine Sulfate (morphine) 4 mg Q4H PRN IV SEVERE PAIN LEVEL 7-10 Last administered on 09/23/18at 10:59; Admin Dose 4 MG; Start 09/22/18 at 02:30 Ondansetron HCl (Zofran Inj) 4 mg Q4 PRN IV NAUSEA AND/OR VOMITING Last administered on 09/22/18at 20:43; Admin Dose 4 MG; Start 09/22/18 at 02:30 Sodium Chloride 1,000 ml @ 100 mls/hr Q10H IV Last administered on 09/23/18at 04:59; Admin Dose 100 MLS/HR; Start 09/22/18 at 02:19 IV Flush (NS 3 ml) 3 ml PER PROTOCOL IV ; Start 09/22/18 at 02:30 Acetaminophen (Tylenol Tab) 650 mg Q6H PRN PO PAIN LEVEL 1-3 OR FEVER; Start 09/22/18 at 02:30 Docusate Sodium (Colace) 100 mg Q12H PRN PO CONSTIPATION; Start 09/22/18 at 02:30 Bisacodyl (Dulcolax) 5 mg DAILY PRN PO CONSTIPATION; Start 09/22/18 at 02:30 Piperacillin Sod/ Tazobactam Sod 100 ml @ 200 mls/hr Q8 IVPB Last administered on 09/22/18at 21:59; Admin Dose 200 MLS/HR; Start 09/22/18 at 06:00 Heparin Sodium (Porcine) (Heparin (5000 Units/1ml)) 5,000 unit Q12 SC Last administered on 09/23/18at 10:47; Admin Dose 5,000 UNIT; Start 09/23/18 at 10:20 Allergies: Uncoded Allergies: flu vaccine (Allergy, Unknown, 09/22/18) Past Surgical History Past Surgical Hx: no surgical history Social History Alcohol Use: other (Every 2 weeks 6-8 beers) Smoking Status: Never smoker Drug Use: none Exam/Review of Systems Vital Signs Vitals Vital Signs Date Temp Pulse Resp B/P (MAP) Pulse Ox O2 O2 Flow FiO2 Time Delivery Rate 09/23/18 98.7 103 18 131/81 94 08:04 (98) 09/22/18 Room Air 21:34 09/22/18 2.0 20:39 Intake and Output 09/22/18 09/22/18 09/23/18 1515:00 23:00 07:00 IntakeIntake Total 700 ml 800 ml 340 ml OutputOutput Total 515 ml 75 ml BalanceBalance 700 ml 285 ml 265 ml Exam PHYSICAL EXAMINATION: GENERAL: Well developed, well nourished, alert & oriented x 3, in no acute di stress SKIN:Surgical incisions, J.P. drain EYES: Pupils equal reactive to light, no discharge. EARS/NOSE AND THROAT: Ears normal, nose normal, oropharynx normal. NECK: Supple, no masses, thyroid normal CHEST: Inspection within normal limits. CARDIOVASCULAR: Heart: Regular rate and rhythm RESPIRATORY: Lungs clear to auscultation GASTROINTESTINAL AND LIVER: Abdomen: Soft, surgical tenderness, non-distended, no hernias, no masses, , normoactive bowel sounds. Rectal: Deferred. GENITOURINARY: Male genitalia within normal limits. EXTREMITIES: No cyanosis, clubbing or edema. Medications Medications Current Medications Morphine Sulfate (morphine SULFATE (PF)) 2 mg Q4H PRN IV moderate pain Last administered on 09/22/18at 13:51; Admin Dose 2 MG; Start 09/22/18 at 02:30 Morphine Sulfate (morphine) 4 mg Q4H PRN IV SEVERE PAIN LEVEL 7-10 Last ad ministered on 09/23/18 10:59; Admin Dose 4 MG; Start 09/22/18 at 02:30 Ondansetron HCl (Zofran Inj) 4 mg Q4 PRN IV NAUSEA AND/OR VOMITING Last administered on 09/22/18at 20:43; Admin Dose 4 MG; Start 09/22/18 at 02:30 Sodium Chloride 1,000 ml @ 100 mls/hr Q10H IV Last administered on 09/23/18 04:59; Admin Dose 100 MLS/HR; Start 09/22/18 at 02:19 IV Flush (NS 3 ml) 3 ml PER PROTOCOL IV ; Start 09/22/18 at 02:30 Acetaminophen (Tylenol Tab) 650 mg Q6H PRN PO PAIN LEVEL 1-3 OR FEVER; Start 09/22/18 at 02:30 Docusate Sodium (Colace) 100 mg Q12H PRN PO CONSTIPATION; Start 09/22/18 at 02:30 Bisacodyl (Dulcolax) 5 mg DAILY PRN PO CONSTIPATION; Start 09/22/18 at 02:30 Piperacillin Sod/ Tazobactam Sod 100 ml @ 200 mls/hr Q8 IVPB Last administered on 09/22/18at 21:59; Admin Dose 200 MLS/HR; Start 09/22/18 at 06:00 Heparin Sodium (Porcine) (Heparin (5000 Units/1ml)) 5,000 unit Q12 SC Last administered on 09/23/18at 10:47; Admin Dose 5,000 UNIT; Start 09/23/18 at 10:20 ARMOND DEAL Sep 23, 2018 13:49
[2018-09-23] MEDS ORDERED: INDOMETHACIN 50 MG SUPP PR ONE (14:30)
[2018-09-23] MEDS: PIPER-TAZO 3.375 GM IV (PMX) 100 ML IVPB SCH ×2 (14:32→21:35)
[2018-09-23] MEDS ORDERED: IOHEXOL 300MG/ML 30 ML BTL ONE ×2 (16:39→18:02)
--- NOTE | 2018-09-23 18:02 | PREAC ---
Date/Time of Note Date/Time of Note DATE: 09/23/18 TIME: 18:00 Anesthesia Eval and Record Evaluation Time Pre-Procedure Interview DATE: 09/23/18 TIME: 18:00 Age 53 Sex male NPO: 8 hrs Preoperative diagnosis choledocholethiasis Planned procedure ercp Past Medical History Past Medical History: Includes Hepatic: Other (fatty liver ) GI: Obesity Surgery & Anesthesia Issues No known issue Meds Anticoagulation: No Beta Marv within 24 hr: No Reason Beta Marv not given: Pt. not on B-Marv Reported Medications Morphine (Morphine) 2 Mg/1 Ml Disp.syrin, 2 MG IV Q4H PRN for moderate pain, EA 09/22/18 Morphine Sulfate* (Morphine*) 4 Mg/1 Ml Cartridge, 4 MG IV Q4H PRN for SEVERE PAIN LEVEL 7-10, SYR 09/22/18 Heparin Sodium,Porcine/Pf (HEPARIN SOD 5,000 UNIT/ 0.5 ML) 5,000 Unit/0.5 Ml Vial, 5000 UNIT IJ Q12, VIAL 09/22/18 Potassium Chloride/D5-0.45NACL (KCl 20 Meq in D5w-0.45% NaCl) 20 Meq/1000 Ml Iv.soln, 20 MEQ IV q10 100 ml/hr 09/22/18 Acetaminophen* (Acetaminophen*) 650 Mg Tablet, 650 MG PO Q6H PRN for PAIN AND OR ELEVATED TEMP, #30 TAB 09/22/18 Ondansetron Hcl* (Ondansetron Hcl* Inj) 4 Mg/2 Ml Ampul, 4 MG IV Q4 PRN for NAUSEA AND/OR VOMITING, AMP 09/22/18 Blmcewwlndoi-Kyvj-Ftrbnsos,Iso (ZOSYN 3.375 GM GALAXY BAG) 3.375 Gm/50 Ml Froz.piggy, 3.375 GM IVPB Q8, EA 09/22/18 Current Medications Morphine Sulfate (morphine SULFATE (PF)) 2 mg Q4H PRN IV moderate pain Last administered on 09/22/18at 13:51; Admin Dose 2 MG; Start 09/22/18 at 02:30 Morphine Sulfate (morphine) 4 mg Q4H PRN IV SEVERE PAIN LEVEL 7-10 Last administered on 09/23/18at 15:56; Admin Dose 4 MG; Start 09/22/18 at 02:30 Ondansetron HCl (Zofran Inj) 4 mg Q4 PRN IV NAUSEA AND/OR VOMITING Last administered on 09/22/18at 20:43; Admin Dose 4 MG; Start 09/22/18 at 02:30 Sodium Chloride 1,000 ml @ 100 mls/hr Q10H IV Last administered on 09/23/18at 14:52; Admin Dose 100 MLS/HR; Start 09/22/18 at 02:19 IV Flush (NS 3 ml) 3 ml PER PROTOCOL IV ; Start 09/22/18 at 02:30 Acetaminophen (Tylenol Tab) 650 mg Q6H PRN PO PAIN LEVEL 1-3 OR FEVER; Start 09/22/18 at 02:30 Docusate Sodium (Colace) 100 mg Q12H PRN PO CONSTIPATION; Start 09/22/18 at 02:30 Bisacodyl (Dulcolax) 5 mg DAILY PRN PO CONSTIPATION; Start 09/22/18 at 02:30 Piperacillin Sod/ Tazobactam Sod 100 ml @ 200 mls/hr Q8 IVPB Last administered on 09/23/18at 14:32; Admin Dose 200 MLS/HR; Start 09/22/18 at 06:00 Heparin Sodium (Porcine) (Heparin (5000 Units/1ml)) 5,000 unit Q12 SC Last administered on 09/23/18at 10:47; Admin Dose 5,000 UNIT; Start 09/23/18 at 10:20 Meds reviewed: Yes Allergies Uncoded Allergies: flu vaccine (Allergy, Unknown, 09/22/18) Allergies Reviewed: Yes Labs/Studies Labs Reviewed: Reviewed by anesthesiologist Result Diagram: 09/23/18 0614 09/23/18 0614 Laboratory Tests 09/23/18 06:14 test: N/A Pre-procedure Exam Last vitals Vital Signs Date Temp Pulse Resp B/P (MAP) Pulse Ox O2 O2 Flow FiO2 Time Delivery Rate 09/23/18 99.5 104 18 150/80 96 14:45 (103) 09/22/18 Room Air 21:34 09/22/18 2.0 20:39 Airway: Adequate mouth opening, Adequate thyromental dist Mallampati: Mallampati IV Teeth: Normal Lung: Normal Heart: Normal ASA Physical Status ASA physical status: 2 Emergency: None Pre-operative Attestations Prior to commencing anesthesia and surgery, the patient was re-evaluated, there was verification of: *The patient's identity *The results of appropriate recent lab work and preoperative vital signs *The above evaluation not changing prior to induction *Anesthetic plan, risk benefits, alternative and complications discussed with patient/family; questions answered; patient/family understands, accepts and wishes to proceed. RUDDY IRVIN DO Sep 23, 2018 18:02
[2018-09-23] MEDS ORDERED: PROPOFOL 20 ML ONE (18:10)
[2018-09-23] MEDS ORDERED: LIDOCAINE 2% (SDV) 5 ML INJ ONE (18:10)
[2018-09-23] MEDS ORDERED: SUCCINYLCHOLINE CHLORIDE 100 MG/5 ML SYG IV ONE (18:10)
[2018-09-23] MEDS ORDERED: FENTAnyl 50 MCG/ML VIAL ONE (18:11)
[2018-09-23] MEDS ORDERED: MIDAZOLAM 1 MG/ML 2 ML INJ ONE (18:11)
[2018-09-23] MEDS ORDERED: ONDANSETRON 4 MG INJ ONE (18:30)
[2018-09-23] MEDS ORDERED: PHENYLephrine (100 MCG/ML) 10ML SYG ONE (18:30)
--- NOTE | 2018-09-23 18:46 | OPPN ---
Date/Time of Note Date/Time of Note DATE: 09/23/18 TIME: 18:43 Proc Note GI Procedure Date 09/23/18 Indication: diagnostic, treatment Pre-procedure Diagnosis Abnormal liver function tests rule out choledocholithiasis Post-procedure Diagnosis Choledocholithiasis. Post sphincterotomy. Post stone removal. Small periampullary diverticulum. Plan: Monitor liver function test. Advance diet as tolerated. Further recommendation will depend on patient clinical course. Procedure Performed: ERCP (Plus sphincterotomy and stone removal) Surgeon AISSATOU PARISH MD See signature line Manager Surgery none Anesthesia Type: general Anesthesiologist: RUDDY IRVIN DO Tourniquet Time none EBL none Transfusion required none Biopsy 1: None Grafts/Implants none Tubes/Drains none Complication(s) none Disposition: PACU Procedure Description After informed consent, with the patient/relatives understanding the procedure, its indications, potential risks and complications, including but not limited to: allergic reaction, bleeding, perforation or infection, and after all pertinent questions were answered to the patients satisfaction, the patient/relatives signed witnessed informed consent. Following this, premedication was administered slowly IV push under careful cardiovascular and respiratory monitoring with pulse oximetry, automatic blood pressure, and materials associate. Once the sedative effect was achieved the patient was place in the prone position in the radiology special procedures suite; the side viewing panendoscope was introduced and advanced under visual control. Careful examination of the upper gastrointestinal tract, both on insertion as well as withdrawal of the instrument disclosed the following findings: Esophagus: The mucosa of the entire appears within normal limits. There is no evidence of esophagitis, varices, neoplasm or stricture. No Hiatal Hernia identified. Stomach: Upon entrance to the stomach air was insufflated, the gastric el distended normally, the mucosa of the fundus, body and antrum of the stomach was carefully examined both head-on and on retroflexion, and shows no abnormalities. There is no evidence of gastritis, ulcers, or neoplasm. Pylorus: The pylorus appears patent and within normal limits, with no evidence of gastric outlet obstruction. Duodenum: The duodenal mucosa was carefully examined in the duodenal bulb as well as the second portion of the duodenum and appears unremarkable with no evidence of duodenitis, ulcer or neoplasm. Ampulla of vater: The ampulla of Vater was identified and carefully examined appearing within normal limits. Small periampullary diverticulum is seen proximally measuring approximately 3-4 mm Cannulation: At this point cannulation was accomplished with the following fluoroscopic findings: Pancreatogram: Avoided purposely Cholangiogram: There is multiple filling defects in the biliary tree. Standard sphincterotomy was performed in multiple stones were removed as well as large amounts of sludge. The biliary tree was flushed until clear material was seen exiting the total system. A balloon cholangiogram was obtained that showed no residual stones and rapid emptying. The instrument was then withdrawn the patient tolerated the procedure well and was transfer out of the endoscopy suite awake, and in good condition to continue to recover under observation. Copies To: CC: AISSATOU PARISH MD ; AISSATOU PARISH MD Sep 23, 2018 18:46
[2018-09-24 02:26] VITALS: BP 128/73; PULSE 85; RESP 18
[2018-09-24] MEDS: SOD CHLORIDE 0.9% 1,000 ML IV SCH ×3 (04:27→15:51)
[2018-09-24] MEDS: PIPER-TAZO 3.375 GM IV (PMX) 100 ML IVPB SCH ×3 (06:30→20:52)
[2018-09-24 07:15] VITALS: BP 108/58; PULSE 91; RESP 18
[2018-09-24] MEDS: HEPARIN 5,000 UNIT/1 ML VIAL SC SCH ×2 (08:31→20:53)
[2018-09-24] MEDS ORDERED: POTASSIUM CHLORIDE (SR) 20 MEQ TAB PO STA (09:12)
--- NOTE | 2018-09-24 09:13 | PN ---
Date/Time of Note Date/Time of Note DATE: 09/24/18 TIME: 09:13 Assessment/Plan VTE Prophylaxis Risk score (from Ns)>0 risk: 6 SCD applied (from Ns): Yes Pharmacological prophylaxis: NA/contraindicated Pharm contraindication: surgical contra Lines/Catheters [facility] Type (from [facility]): Peripheral IV Assessment/Plan Assessment/Plan 1. Cholelithiasis with ?acute cholecystitis s/p lap eleazar 09/22/18 - Patient tolerated surgical intervention well and pain well controlled - Surgery on board and consultation appreciated 2. Choledocholithiasis s/p ERCP - GI on board and appreciate recommendations. ERCP performed yesterday 09/23 and tolerated well - LFTs trending down and tolerating PO diet - Will continue advancing diet as tolerated 3. Obesity - diet modification counseling offered 4. Disposition - Will advance diet and if tolerating regular diet without issues, will discharge tomorrow Result Diagram: 09/24/18 0504 09/24/18 0504 Results 24hrs Laboratory Tests Test 09/24/18 05:04 White Blood Count 13.4 H Red Blood Count 3.54 L Hemoglobin 11.4 L Hematocrit 32.4 L Mean Corpuscular Volume 91.5 Mean Corpuscular Hemoglobin 32.2 Mean Corpuscular Hemoglobin Concent 35.2 Red Cell Distribution Width 12.1 Platelet Count 206 Mean Platelet Volume 11.5 H Immature Granulocytes % 0.500 H Neutrophils % 81.5 H Lymphocytes % 9.1 L Monocytes % 7.2 Eosinophils % 1.5 Basophils % 0.2 Nucleated Red Blood Cells % 0.0 Immature Granulocytes # 0.070 H Neutrophils # 10.9 H Lymphocytes # 1.2 Monocytes # 1.0 H Eosinophils # 0.2 Basophils # 0.0 Nucleated Red Blood Cells # 0.0 Sodium Level 139 Potassium Level 3.3 L Chloride Level 107 Carbon Dioxide Level 24 Anion Gap 8 Blood Urea Nitrogen 9 Creatinine 0.70 Est Glomerular Filtrat Rate mL/min > 60 Glucose Level 106 Calcium Level 8.5 Magnesium Level 1.9 Total Bilirubin 1.0 # Direct Bilirubin 0.00 # Indirect Bilirubin 1.0 Aspartate Amino Transf (AST/SGOT) 63 H Alanine Aminotransferase (ALT/SGPT) 101 H Alkaline Phosphatase 178 H Total Protein 6.0 L Albumin 2.9 L Globulin 3.10 Albumin/Globulin Ratio 0.93 Subjective 24 Hr Interval Summary Free Text/Dictation Patient feeling better and tolerating full liquid diet. Would like to try more solid foods. Admits to today as well. Exam/Review of Systems Vital Signs Vitals Vital Signs Date Temp Pulse Resp B/P (MAP) Pulse Ox O2 O2 Flow FiO2 Time Delivery Rate 09/24/18 98.6 91 18 108/58 94 Room Air 07:15 (75) 09/23/18 2.0 20:00 Intake and Output 09/23/18 09/23/18 09/24/18 1515:00 23:00 07:00 IntakeIntake Total 1480 ml 640 ml 1140 ml OutputOutput Total 170 ml 100 ml 100 ml BalanceBalance 1310 ml 540 ml 1040 ml Exam General: Patient is well-developed well-nourished. no acute distress Neck: Supple Chest: Nontender Lungs: Clear to auscultation bilaterally no crackles rales or wheezing Heart: Normal S1-S2, Regular rhythm and rate. No murmur, S3, or S4 Abdomen: Soft , mild tenderness with palpation, nondistended , bowel sounds are present. No guarding no rebound tenderness Extremities: Normal to inspection, no edema no cyanosis Medications Medications Current Medications Morphine Sulfate (morphine SULFATE (PF)) 2 mg Q4H PRN IV moderate pain Last administered on 09/22/18at 13:51; Admin Dose 2 MG; Start 09/22/18 at 02:30 Morphine Sulfate (morphine) 4 mg Q4H PRN IV SEVERE PAIN LEVEL 7-10 Last ad ministered on 09/23/18at 15:56; Admin Dose 4 MG; Start 09/22/18 at 02:30 Ondansetron HCl (Zofran Inj) 4 mg Q4 PRN IV NAUSEA AND/OR VOMITING Last administered on 09/22/18at 20:43; Admin Dose 4 MG; Start 09/22/18 at 02:30 Sodium Chloride 1,000 ml @ 100 mls/hr Q10H IV Last administered on 09/24/18at 05:52; Admin Dose 100 MLS/HR; Start 09/22/18 at 02:19 IV Flush (NS 3 ml) 3 ml PER PROTOCOL IV ; Start 09/22/18 at 02:30 Acetaminophen (Tylenol Tab) 650 mg Q6H PRN PO PAIN LEVEL 1-3 OR FEVER; Start 09/22/18 at 02:30 Docusate Sodium (Colace) 100 mg Q12H PRN PO CONSTIPATION; Start 09/22/18 at 02:30 Bisacodyl (Dulcolax) 5 mg DAILY PRN PO CONSTIPATION; Start 09/22/18 at 02:30 Piperacillin Sod/ Tazobactam Sod 100 ml @ 200 mls/hr Q8 IVPB Last administered on 09/24/18at 06:30; Admin Dose 200 MLS/HR; Start 09/22/18 at 06:00 Heparin Sodium (Porcine) (Heparin (5000 Units/1ml)) 5,000 unit Q12 SC Last administered on 09/24/18at 08:31; Admin Dose 5,000 UNIT; Start 09/23/18 at 10:20 RADHA HERNANDES MD Sep 24, 2018 09:13
--- NOTE | 2018-09-24 11:35 | PN ---
Date/Time of Note Date/Time of Note DATE: 09/24/18 TIME: 11:32 Assessment/Plan Lines/Catheters IV Catheter Type (from [facility]): Peripheral IV Assessment/Plan Chief Complaint/Hosp Course 1. Gallstone pancreatitis: Lipase normalized 2. 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 Hyperbilirubinemia: No MR evidence of choledocholithiasis on prior scan; normalized and now elevated; concern for choledocholithiasis: Status post ERCP with noted choledocholithiasis; bilirubin normalized 4. Mild fatty liver: With minimally elevated ALT; status post liver wedge biopsy -Follow pathology -Encourage weight loss 5. Bilateral inguinal hernias -Encourage weight loss -Eventual surgical repair 6. Leukocytosis: Improving -Trend 7. Diverticulosis without diverticulitis: -Lifestyle changes Thank you. Patient seen and examined in collaboration with Dr. Freddie Castro. Subjective 24 Hr Interval Summary Status post ERCP yesterday. Bilirubin normalized. No fevers, chills, sob, congested cough, cp, palpitations, barr, dizziness, nausea, vomiting, diarrhea, dysuria. Exam/Review of Systems Vital Signs Vitals Vital Signs Date Temp Pulse Resp B/P (MAP) Pulse Ox O2 O2 Flow FiO2 Time Delivery Rate 09/24/18 98.6 91 18 108/58 94 Room Air 07:15 (75) 09/23/18 2.0 20:00 Intake and Output 09/23/18 09/23/18 09/24/18 1414:59 22:59 06:59 IntakeIntake Total 1480 ml 640 ml 1140 ml OutputOutput Total 170 ml 180 ml 100 ml BalanceBalance 1310 ml 460 ml 1040 ml Exam Free Text/Dictation Constitutional: alert, oriented Psych: nl mood/affect; No anxiety Head: normocephalic, atraumatic Eyes: nl conjunctiva, EOMI, nl sclera ENMT: nl external ears & nose, nl lips & teeth, mucosa pink and moist Neck: supple, non-tender; No jvd Respiratory: No congested cough Cardiovascular: regular rate and rhythm, nl pulses; No edema Gastrointestinal: soft, distended ( minimal); minimal tender (tod-incisional: Incision sites dry without drainage/discoloration/bruising; DANNI with serosanguineous drainage) Musculoskeletal: nl extremities to inspection, nl gait and stance Extremities: normal pulses Neurological: nl mental status, nl speech, nl strength Skin: No rash or lesions Results Result Diagram: 09/24/18 0504 09/24/18 0504 RACHEL BOBBY NP Sep 24, 2018 11:35
--- NOTE | 2018-09-24 13:57 | PN ---
Date/Time of Note Date/Time of Note DATE: 09/24/18 TIME: 13:53 Assessment/Plan VTE Prophylaxis Risk score (from [facility])>0 risk: 6 SCD applied (from [facility]): Yes Pharmacological prophylaxis: other (scds) Lines/Catheters IV Catheter Type (from [facility]): Peripheral IV Assessment/Plan Hospital Course Summary Assessment and Plan: Assessment: Gallstone pancreatitis -Status post cholecystectomy 09/22/18 Direct hyperbilirubinemia with elevated LFTs- trending down - S/p ERCP 09/23/18 Choledocholithiasis. Post sphincterotomy. Post stone removal. Small periampullary diverticulum. Leukocytosis- trending down Diverticulosis without diverticulitis Mild fatty liver ETOH use Plan: Monitor liver function test- currently improving Advance diet as tolerated d/c planning per hospitalist/surgery team Patient seen in collaboration with Dr. Nelson Subjective: Course reviewed with nursing staff Patient interviewed and examined All labs, imaging and other results reviewed The patient feeling better, andrew diet well No over night events. Discussed ERCP with patient And current labs values , family at bedside PHYSICAL EXAMINATION: GENERAL: Well developed, well nourished, alert & oriented x 3, in no acute distress SKIN:Surgical incisions, J.P. drain EYES: Pupils equal reactive to light, no discharge. EARS/NOSE AND THROAT: Ears normal, nose normal, oropharynx normal. NECK: Supple, no masses, thyroid normal CHEST: Inspection within normal limits. CARDIOVASCULAR: Heart: Regular rate and rhythm RESPIRATORY: Lungs clear to auscultation GASTROINTESTINAL AND LIVER: Abdomen: Soft, surgical tenderness, non-distended, no hernias, no masses, , normoactive bowel sounds. Rectal: Deferred. GENITOURINARY: Male genitalia within normal limits. EXTREMITIES: No cyanosis, clubbing or edema. Result Diagram: 09/24/18 0504 09/24/18 0504 Results 24hrs Laboratory Tests Test 09/24/18 05:04 White Blood Count 13.4 H Red Blood Count 3.54 L Hemoglobin 11.4 L Hematocrit 32.4 L Mean Corpuscular Volume 91.5 Mean Corpuscular Hemoglobin 32.2 Mean Corpuscular Hemoglobin Concent 35.2 Red Cell Distribution Width 12.1 Platelet Count 206 Mean Platelet Volume 11.5 H Immature Granulocytes % 0.500 H Neutrophils % 81.5 H Lymphocytes % 9.1 L Monocytes % 7.2 Eosinophils % 1.5 Basophils % 0.2 Nucleated Red Blood Cells % 0.0 Immature Granulocytes # 0.070 H Neutrophils # 10.9 H Lymphocytes # 1.2 Monocytes # 1.0 H Eosinophils # 0.2 Basophils # 0.0 Nucleated Red Blood Cells # 0.0 Sodium Level 139 Potassium Level 3.3 L Chloride Level 107 Carbon Dioxide Level 24 Anion Gap 8 Blood Urea Nitrogen 9 Creatinine 0.70 Est Glomerular Filtrat Rate mL/min > 60 Glucose Level 106 Calcium Level 8.5 Magnesium Level 1.9 Total Bilirubin 1.0 # Direct Bilirubin 0.00 # Indirect Bilirubin 1.0 Aspartate Amino Transf (AST/SGOT) 63 H Alanine Aminotransferase (ALT/SGPT) 101 H Alkaline Phosphatase 178 H Total Protein 6.0 L Albumin 2.9 L Globulin 3.10 Albumin/Globulin Ratio 0.93 Exam/Review of Systems Vital Signs Vitals Vital Signs Date Temp Pulse Resp B/P (MAP) Pulse Ox O2 O2 Flow FiO2 Time Delivery Rate 09/24/18 98.6 91 18 108/58 94 Room Air 07:15 (75) 09/23/18 2.0 20:00 Intake and Output 09/23/18 09/23/18 09/24/18 1515:00 23:00 07:00 IntakeIntake Total 1480 ml 640 ml 1140 ml OutputOutput Total 170 ml 180 ml 100 ml BalanceBalance 1310 ml 460 ml 1040 ml Medications Medications Current Medications Morphine Sulfate (morphine SULFATE (PF)) 2 mg Q4H PRN IV moderate pain Last administered on 09/22/18at 13:51; Admin Dose 2 MG; Start 09/22/18 at 02:30 Morphine Sulfate (morphine) 4 mg Q4H PRN IV SEVERE PAIN LEVEL 7-10 Last administered on 09/23/18at 15:56; Admin Dose 4 MG; Start 09/22/18 at 02:30 Ondansetron HCl (Zofran Inj) 4 mg Q4 PRN IV NAUSEA AND/OR VOMITING Last administered on 09/22/18at 20:43; Admin Dose 4 MG; Start 09/22/18 at 02:30 Sodium Chloride 1,000 ml @ 100 mls/hr Q10H IV Last administered on 09/24/18at 05:52; Admin Dose 100 MLS/HR; Start 1/8/19 at 02:19 IV Flush (NS 3 ml) 3 ml PER PROTOCOL IV ; Start 09/22/18 at 02:30 Acetaminophen (Tylenol Tab) 650 mg Q6H PRN PO PAIN LEVEL 1-3 OR FEVER; Start 09/22/18 at 02:30 Docusate Sodium (Colace) 100 mg Q12H PRN PO CONSTIPATION; Start 09/22/18 at 02:30 Bisacodyl (Dulcolax) 5 mg DAILY PRN PO CONSTIPATION; Start 09/22/18 at 02:30 Piperacillin Sod/ Tazobactam Sod 100 ml @ 200 mls/hr Q8 IVPB Last administered on 09/24/18at 06:30; Admin Dose 200 MLS/HR; Start 09/22/18 at 06:00 Heparin Sodium (Porcine) (Heparin (5000 Units/1ml)) 5,000 unit Q12 SC Last administered on 09/24/18at 08:31; Admin Dose 5,000 UNIT; Start 09/23/18 at 10:20 ARMOND DEAL Sep 24, 2018 13:57
[2018-09-24 14:00] VITALS: BP 132/74; PULSE 99; RESP 16
[2018-09-24 20:00] VITALS: BP 135/79; PULSE 91; RESP 18
[2018-09-25 02:00] VITALS: BP 134/74; PULSE 85; RESP 18
[2018-09-25] MEDS: SOD CHLORIDE 0.9% 1,000 ML IV SCH ×2 (03:03→13:34)
[2018-09-25] MEDS: morphine SULFATE/PF (2 MG/2 ML) SYG IV PRN (03:03)
[2018-09-25] MEDS: PIPER-TAZO 3.375 GM IV (PMX) 100 ML IVPB SCH ×3 (06:33→21:33)
[2018-09-25] MEDS: HEPARIN 5,000 UNIT/1 ML VIAL SC SCH ×2 (08:38→20:33)
[2018-09-25 08:48] VITALS: BP 159/82; PULSE 92; RESP 18
[2018-09-25] MEDS ORDERED: POTASSIUM CHLORIDE (SR) 20 MEQ TAB PO STA (08:54)
--- NOTE | 2018-09-25 08:56 | PN ---
Date/Time of Note Date/Time of Note DATE: 09/25/18 TIME: 08:56 Assessment/Plan VTE Prophylaxis Risk score (from Ns)>0 risk: 4 SCD applied (from Ns): Yes Pharmacological prophylaxis: NA/contraindicated Pharm contraindication: surgical contra Lines/Catheters IV Catheter Type (from Nrs): Peripheral IV Assessment/Plan Assessment/Plan 1. 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 Would like to continue another day of IV antibiotics and monitor DANNI drain outpt 2. Choledocholithiasis s/p ERCP - GI on board and appreciate recommendations. ERCP performed yesterday 09/23 and tolerated well - LFTs normalized and tolerating PO diet - Will continue advancing diet as tolerated 3. Obesity - diet modification counseling offered 4. Disposition - Will continue monitoring DANNI drainage and when diminished and remains afebrile, will d/c home Result Diagram: 09/25/18 0552 09/25/18 0552 Results 24hrs Laboratory Tests Test 09/25/18 05:52 White Blood Count 13.5 H Red Blood Count 3.58 L Hemoglobin 11.5 L Hematocrit 33.2 L Mean Corpuscular Volume 92.7 Mean Corpuscular Hemoglobin 32.1 Mean Corpuscular Hemoglobin Concent 34.6 Red Cell Distribution Width 12.3 Platelet Count 268 # Mean Platelet Volume 11.3 H Immature Granulocytes % 0.600 H Neutrophils % 75.7 Lymphocytes % 15.3 Monocytes % 5.7 Eosinophils % 2.2 Basophils % 0.5 Nucleated Red Blood Cells % 0.0 Immature Granulocytes # 0.080 H Neutrophils # 10.2 H Lymphocytes # 2.1 Monocytes # 0.8 Eosinophils # 0.3 Basophils # 0.1 Nucleated Red Blood Cells # 0.0 Sodium Level 139 Potassium Level 3.4 L Chloride Level 108 Carbon Dioxide Level 23 Anion Gap 8 Blood Urea Nitrogen 7 Creatinine 0.64 Est Glomerular Filtrat Rate mL/min > 60 Glucose Level 116 Calcium Level 8.6 Magnesium Level 1.8 Total Bilirubin 0.4 Direct Bilirubin 0.00 Indirect Bilirubin 0.4 Aspartate Amino Transf (AST/SGOT) 32 Alanine Aminotransferase (ALT/SGPT) 69 Alkaline Phosphatase 154 H Total Protein 6.4 Albumin 3.2 L Globulin 3.20 Albumin/Globulin Ratio 1.00 Subjective 24 Hr Interval Summary Free Text/Dictation Patient states hes feeling better and asking when he can go home. Still with si gnificant drain in DANNI. No acute overnight events. Exam/Review of Systems Vital Signs Vitals Vital Signs Date Temp Pulse Resp B/P (MAP) Pulse Ox O2 O2 Flow FiO2 Time Delivery Rate 09/25/18 99.3 92 18 159/82 95 08:48 (107) 09/24/18 Room Air 14:00 09/23/18 2.0 20:00 Intake and Output 09/24/18 09/24/18 09/25/18 1515:00 23:00 07:00 IntakeIntake Total 650 ml 1500 ml 1100 ml OutputOutput Total 30 ml 215 ml 85 ml BalanceBalance 620 ml 1285 ml 1015 ml Exam General: Patient is well-developed well-nourished. no acute distress Neck: Supple Chest: Nontender Lungs: Clear to auscultation bilaterally no crackles rales or wheezing Heart: Normal S1-S2, Regular rhythm and rate. No murmur, S3, or S4 Abdomen: Soft , mild tenderness with palpation, nondistended , bowel sounds are present. No guarding no rebound tenderness Extremities: Normal to inspection, no edema no cyanosis Medications Medications Current Medications Morphine Sulfate (morphine SULFATE (PF)) 2 mg Q4H PRN IV moderate pain Last administered on 09/25/18at 03:03; Admin Dose 2 MG; Start 09/22/18 at 02:30 Morphine Sulfate (morphine) 4 mg Q4H PRN IV SEVERE PAIN LEVEL 7-10 Last administered on 09/23/18at 15:56; Admin Dose 4 MG; Start 09/22/18 at 02:30 Ondansetron HCl (Zofran Inj) 4 mg Q4 PRN IV NAUSEA AND/OR VOMITING Last administered on 09/22/18at 20:43; Admin Dose 4 MG; Start 09/22/18 at 02:30 Sodium Chloride 1,000 ml @ 100 mls/hr Q10H IV Last administered on 09/25/18at 03:03; Admin Dose 100 MLS/HR; Start 09/22/18 at 02:19 IV Flush (NS 3 ml) 3 ml PER PROTOCOL IV ; Start 09/22/18 at 02:30 Acetaminophen (Tylenol Tab) 650 mg Q6H PRN PO PAIN LEVEL 1-3 OR FEVER; Start 09/22/18 at 02:30 Docusate Sodium (Colace) 100 mg Q12H PRN PO CONSTIPATION; Start 09/22/18 at 02:30 Bisacodyl (Dulcolax) 5 mg DAILY PRN PO CONSTIPATION; Start 09/22/18 at 02:30 Piperacillin Sod/ Tazobactam Sod 100 ml @ 200 mls/hr Q8 IVPB Last administered on 09/25/18at 06:33; Admin Dose 200 MLS/HR; Start 09/22/18 at 06:00 Heparin Sodium (Porcine) (Heparin (5000 Units/1ml)) 5,000 unit Q12 SC Last administered on 09/25/18at 08:38; Admin Dose 5,000 UNIT; Start 09/23/18 at 10:20 Potassium Chloride (Klor-Con 20) 40 meq ONCE STAT PO ; Start 09/25/18 at 08:54; Stop 09/25/18 at 08:55; Status UNRADHA HARRIS MD Sep 25, 2018 08:56
[2018-09-25] MEDS ORDERED: NAPROXEN 500 MG TAB PO PRN (09:00)
--- NOTE | 2018-09-25 10:14 | PN ---
Date/Time of Note Date/Time of Note DATE: 09/25/18 TIME: 10:12 Assessment/Plan Lines/Catheters IV Catheter Type (from [facility]): Peripheral IV Assessment/Plan Chief Complaint/Hosp Course 1. Gallstone pancreatitis: Lipase normalized 2. 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 Hyperbilirubinemia: No MR evidence of choledocholithiasis on prior scan; normalized and now elevated; concern for choledocholithiasis: Status post ERCP with noted choledocholithiasis; bilirubin normalized 4. Mild fatty liver: With minimally elevated ALT; status post liver wedge biopsy: macrovesicular steatosis -Encourage weight loss 5. Bilateral inguinal hernias -Encourage weight loss -Eventual surgical repair 6. Leukocytosis: -Trend 7. Diverticulosis without diverticulitis: -Lifestyle changes Thank you. Patient seen and examined in collaboration with Dr. Freddie Castro. Subjective 24 Hr Interval Summary Feels much better. Leukocytosis persistent. Min temp. No fevers, chills, sob, congested cough, cp, palpitations, barr, dizziness, n/v/d/dysuria. Exam/Review of Systems Vital Signs Vitals Vital Signs Date Temp Pulse Resp B/P (MAP) Pulse Ox O2 O2 Flow FiO2 Time Delivery Rate 09/25/18 99.3 92 18 159/82 95 08:48 (107) 09/24/18 Room Air 14:00 09/23/18 2.0 20:00 Intake and Output 09/24/18 09/24/18 09/25/18 1515:00 23:00 07:00 IntakeIntake Total 650 ml 1500 ml 1100 ml OutputOutput Total 30 ml 215 ml 85 ml BalanceBalance 620 ml 1285 ml 1015 ml Exam Free Text/Dictation Constitutional: alert, oriented Psych: nl mood/affect; No anxiety Head: normocephalic, atraumatic Eyes: nl conjunctiva, EOMI, nl sclera ENMT: nl external ears & nose, nl lips & teeth, mucosa pink and moist Neck: supple, non-tender; No jvd Respiratory: No congested cough Cardiovascular: regular rate and rhythm, nl pulses; No edema Gastrointestinal: soft, distended (minimal); minimal tender (tod-incisional: Incision sites dry without drainage/discoloration/bruising; DANNI with serosanguineous drainage) Musculoskeletal: nl extremities to inspection, nl gait and stance Extremities: normal pulses Neurological: nl mental status, nl speech, nl strength Skin: No rash or lesions Results Result Diagram: 09/25/18 0552 09/25/18 0552 RACHEL BOBBY NP Sep 25, 2018 10:14
[2018-09-25] MEDS ORDERED: HEPARIN 1000 UNITS/ML 10 ML INJ ONE (12:30)
[2018-09-25 14:50] VITALS: BP 141/78; PULSE 86; RESP 18
--- NOTE | 2018-09-25 15:57 | PN ---
Date/Time of Note Date/Time of Note DATE: 09/25/18 TIME: 15:46 Assessment/Plan VTE Prophylaxis Risk score (from [facility])>0 risk: 4 SCD applied (from [facility]): Yes Pharmacological prophylaxis: heparin Lines/Catheters IV Catheter Type (from [facility]): Peripheral IV Assessment/Plan Assessment/Plan Assessment: Gallstone pancreatitis -Status post cholecystectomy 09/22/18 Direct hyperbilirubinemia with elevated LFTs- trending down - S/p ERCP 09/23/18 Choledocholithiasis. Post sphincterotomy. Post stone removal. Small periampullary diverticulum. Leukocytosis Diverticulosis without diverticulitis Mild fatty liver ETOH use Plan: Monitor liver function test- currently improving Monitor white blood count d/c planning per hospitalist/surgery team Patient seen in collaboration with Dr. Nelson Subjective: Course reviewed with nursing staff Patient interviewed and examined All labs, imaging and other results reviewed The patient feeling better, tolerating present diet well. Minimal drainage from DANNI tube. No over night events. Pending discharge home for tomorrow. PHYSICAL EXAMINATION: GENERAL: Well developed, well nourished, alert & oriented x 3, in no acute distr ess SKIN:Surgical incisions, J.P. drain EYES: Pupils equal reactive to light, no discharge. EARS/NOSE AND THROAT: Ears normal, nose normal, oropharynx normal. NECK: Supple, no masses, thyroid normal CHEST: Inspection within normal limits. CARDIOVASCULAR: Heart: Regular rate and rhythm RESPIRATORY: Lungs clear to auscultation GASTROINTESTINAL AND LIVER: Abdomen: Soft, surgical tenderness, non-distended, no hernias, no masses, , normoactive bowel sounds. Rectal: Deferred. GENITOURINARY: Male genitalia within normal limits. EXTREMITIES: No cyanosis, clubbing or edema. Result Diagram: 09/25/18 0552 09/25/18 0552 Results 24hrs Laboratory Tests Test 09/25/18 05:52 White Blood Count 13.5 H Red Blood Count 3.58 L Hemoglobin 11.5 L Hematocrit 33.2 L Mean Corpuscular Volume 92.7 Mean Corpuscular Hemoglobin 32.1 Mean Corpuscular Hemoglobin Concent 34.6 Red Cell Distribution Width 12.3 Platelet Count 268 # Mean Platelet Volume 11.3 H Immature Granulocytes % 0.600 H Neutrophils % 75.7 Lymphocytes % 15.3 Monocytes % 5.7 Eosinophils % 2.2 Basophils % 0.5 Nucleated Red Blood Cells % 0.0 Immature Granulocytes # 0.080 H Neutrophils # 10.2 H Lymphocytes # 2.1 Monocytes # 0.8 Eosinophils # 0.3 Basophils # 0.1 Nucleated Red Blood Cells # 0.0 Sodium Level 139 Potassium Level 3.4 L Chloride Level 108 Carbon Dioxide Level 23 Anion Gap 8 Blood Urea Nitrogen 7 Creatinine 0.64 Est Glomerular Filtrat Rate mL/min > 60 Glucose Level 116 Calcium Level 8.6 Magnesium Level 1.8 Total Bilirubin 0.4 Direct Bilirubin 0.00 Indirect Bilirubin 0.4 Aspartate Amino Transf (AST/SGOT) 32 Alanine Aminotransferase (ALT/SGPT) 69 Alkaline Phosphatase 154 H Total Protein 6.4 Albumin 3.2 L Globulin 3.20 Albumin/Globulin Ratio 1.00 CC: AISSATOU NELSON MD ; Exam/Review of Systems Vital Signs Vitals Vital Signs Date Temp Pulse Resp B/P (MAP) Pulse Ox O2 O2 Flow FiO2 Time Delivery Rate 09/25/18 98.1 86 18 141/78 97 14:50 (99) 09/24/18 Room Air 14:00 09/23/18 2.0 20:00 Intake and Output 09/24/18 09/24/18 09/25/18 1515:00 23:00 07:00 IntakeIntake Total 650 ml 1500 ml 1100 ml OutputOutput Total 30 ml 215 ml 85 ml BalanceBalance 620 ml 1285 ml 1015 ml Medications Medications Current Medications Morphine Sulfate (morphine SULFATE (PF)) 2 mg Q4H PRN IV moderate pain Last administered on 09/25/18at 03:03; Admin Dose 2 MG; Start 09/22/18 at 02:30 Morphine Sulfate (morphine) 4 mg Q4H PRN IV SEVERE PAIN LEVEL 7-10 Last administered on 09/23/18at 15:56; Admin Dose 4 MG; Start 09/22/18 at 02:30 Ondansetron HCl (Zofran Inj) 4 mg Q4 PRN IV NAUSEA AND/OR VOMITING Last administered on 09/22/18at 20:43; Admin Dose 4 MG; Start 09/22/18 at 02:30 Sodium Chloride 1,000 ml @ 100 mls/hr Q10H IV Last administered on 09/25/18at 13:34; Admin Dose 100 MLS/HR; Start 09/22/18 at 02:19 IV Flush (NS 3 ml) 3 ml PER PROTOCOL IV ; Start 09/22/18 at 02:30 Acetaminophen (Tylenol Tab) 650 mg Q6H PRN PO PAIN LEVEL 1-3 OR FEVER; Start 09/22/18 at 02:30 Docusate Sodium (Colace) 100 mg Q12H PRN PO CONSTIPATION; Start 09/22/18 at 02: 30 Bisacodyl (Dulcolax) 5 mg DAILY PRN PO CONSTIPATION; Start 09/22/18 at 02:30 Piperacillin Sod/ Tazobactam Sod 100 ml @ 200 mls/hr Q8 IVPB Last administered on 09/25/18at 13:33; Admin Dose 200 MLS/HR; Start 09/22/18 at 06:00 Heparin Sodium (Porcine) (Heparin (5000 Units/1ml)) 5,000 unit Q12 SC Last administered on 09/25/18at 08:38; Admin Dose 5,000 UNIT; Start 09/23/18 at 10:20 Naproxen (Naprosyn) 500 mg BID PRN PO PAIN LEVEL 1-3; Start 09/25/18 at 09:00 LUISA LUBIN NP Sep 25, 2018 15:56
[2018-09-25 20:00] VITALS: BP 119/70; PULSE 85; RESP 20
[2018-09-26] MEDS: SOD CHLORIDE 0.9% 1,000 ML IV SCH ×3 (00:15→21:44)
[2018-09-26 02:00] VITALS: BP 117/77; PULSE 83; RESP 18
[2018-09-26] MEDS: PIPER-TAZO 3.375 GM IV (PMX) 100 ML IVPB SCH ×3 (05:46→21:43)
[2018-09-26 08:00] VITALS: BP 143/83; PULSE 94; RESP 20
[2018-09-26] MEDS: HEPARIN 5,000 UNIT/1 ML VIAL SC SCH ×2 (08:26→21:02)
[2018-09-26] MEDS ORDERED: POTASSIUM CHLORIDE (SR) 20 MEQ TAB PO STA (12:11)
[2018-09-26] MEDS: CEPASTAT LOZENGE MT PRN ×2 (13:01→21:00)
[2018-09-26 14:00] VITALS: BP 118/72; PULSE 74; RESP 20
[2018-09-26] MEDS: SALINE 0.65% 45 ML NAS SPRAY NASAL SCH ×2 (14:00→21:03)
--- NOTE | 2018-09-26 15:15 | PN ---
Date/Time of Note Date/Time of Note DATE: 09/26/18 TIME: 15:09 Assessment/Plan Lines/Catheters IV Catheter Type (from [facility]): Peripheral IV Assessment/Plan Chief Complaint/Hosp Course 1. Gallstone pancreatitis: Lipase normalized 2. 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 Patient to call and make appointment 3. Hyperbilirubinemia: No MR evidence of choledocholithiasis on prior scan; normalized and now elevated; concern for choledocholithiasis: Status post ERCP with noted choledocholithiasis; bilirubin normalized 4. Mild fatty liver: With minimally elevated ALT; status post liver wedge biopsy: macrovesicular steatosis; improving -Encourage weight loss 5. Bilateral inguinal hernias -Encourage weight loss -Eventual surgical repair 6. Leukocytosis: Much improved -Trend 7. Diverticulosis without diverticulitis: -Lifestyle changes Thank you. Patient seen and examined in collaboration with Dr. Freddie Castro. Subjective 24 Hr Interval Summary Feels much improved. Low-grade fever yesterday. No chills, sob, congested cough, cp, palpitations, barr, dizziness, nausea, vomiting, diarrhea, dysuria. Tolerating diet. + Bowel function. Exam/Review of Systems Vital Signs Vitals Vital Signs Date Temp Pulse Resp B/P (MAP) Pulse Ox O2 O2 Flow FiO2 Time Delivery Rate 09/26/18 98.6 94 20 143/83 96 08:00 (103) 09/24/18 Room Air 14:00 09/23/18 2.0 20:00 Intake and Output 09/25/18 09/25/18 09/26/18 1515:00 23:00 07:00 IntakeIntake Total 1720 ml 640 ml 1485 ml OutputOutput Total 45 ml 20 ml 85 ml BalanceBalance 1675 ml 620 ml 1400 ml Exam Free Text/Dictation Constitutional: alert, oriented Psych: nl mood/affect; No anxiety Head: normocephalic, atraumatic Eyes: nl conjunctiva, EOMI, nl sclera ENMT: nl external ears & nose, nl lips & teeth, mucosa pink and moist Neck: supple, non-tender; No jvd Respiratory: No congested cough Cardiovascular: regular rate and rhythm, nl pulses; No edema Gastrointestinal: soft, non-distended; minimal tender (tod-incisional: Incision sites dry without drainage/discoloration/bruising; DANNI with serosanguineous drainage) Musculoskeletal: nl extremities to inspection, nl gait and stance Extremities: normal pulses Neurological: nl mental status, nl speech, nl strength Skin: No rash or lesions Results Result Diagram: 09/26/18 0954 09/26/18 0954 RACHEL BOBBY NP Sep 26, 2018 15:15
--- NOTE | 2018-09-26 16:38 | PN ---
Date/Time of Note Date/Time of Note DATE: 09/26/18 TIME: 16:32 Assessment/Plan VTE Prophylaxis Risk score (from [facility])>0 risk: 4 SCD applied (from [facility]): Yes Pharmacological prophylaxis: NA/contraindicated Pharm contraindication: surgical contra Lines/Catheters IV Catheter Type (from [facility]): Peripheral IV Assessment/Plan Assessment/Plan 1. 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 Discussed plan of care. Will be dc with DANNI drain but would like pt to remain afebrile for 24 hours prior to d ischarge. Will need 1 week follow up for DANNI removal. 2. Choledocholithiasis s/p ERCP - GI on board and appreciate recommendations. ERCP performed yesterday 09/23 and tolerated well - LFTs normalized and tolerating PO diet - Will continue advancing diet as tolerated 3. Obesity - diet modification counseling offered 4. Dry cough - most likely associated with post nasal drip - will start nasal saline and cough drops 5. Disposition - When afebrile for 24 hours will d/c home. Will need to follow up in 1 week for DANNI drain removal Result Diagram: 09/26/18 0954 09/26/18 0954 Results 24hrs Laboratory Tests Test 09/26/18 09:54 White Blood Count 11.4 H Red Blood Count 3.66 L Hemoglobin 11.7 L Hematocrit 33.7 L Mean Corpuscular Volume 92.1 Mean Corpuscular Hemoglobin 32.0 Mean Corpuscular Hemoglobin Concent 34.7 Red Cell Distribution Width 12.1 Platelet Count 296 Mean Platelet Volume 11.0 H Immature Granulocytes % 1.100 H Neutrophils % 77.6 H Lymphocytes % 13.1 L Monocytes % 5.6 Eosinophils % 2.2 Basophils % 0.4 Nucleated Red Blood Cells % 0.0 Immature Granulocytes # 0.130 H Neutrophils # 8.8 H Lymphocytes # 1.5 Monocytes # 0.6 Eosinophils # 0.3 Basophils # 0.1 Nucleated Red Blood Cells # 0.0 Sodium Level 141 Potassium Level 3.4 L Chloride Level 104 Carbon Dioxide Level 24 Anion Gap 13 Blood Urea Nitrogen 6 L Creatinine 0.64 Est Glomerular Filtrat Rate mL/min > 60 Glucose Level 158 Calcium Level 8.8 Total Bilirubin 0.4 Direct Bilirubin 0.00 Indirect Bilirubin 0.4 Aspartate Amino Transf (AST/SGOT) 28 Alanine Aminotransferase (ALT/SGPT) 59 Alkaline Phosphatase 108 Total Protein 6.6 Albumin 3.3 Globulin 3.30 H Albumin/Globulin Ratio 1.00 Subjective 24 Hr Interval Summary Free Text/Dictation patient now with dry cough and post nasal drip and requesting medication for relief. States abdominal pain is improving. Exam/Review of Systems Vital Signs Vitals Vital Signs Date Temp Pulse Resp B/P (MAP) Pulse Ox O2 O2 Flow FiO2 Time Delivery Rate 09/26/18 98.6 74 20 118/72 96 14:00 (87) 09/24/18 Room Air 14:00 09/23/18 2.0 20:00 Intake and Output 09/25/18 09/25/18 09/26/18 1515:00 23:00 07:00 IntakeIntake Total 1720 ml 640 ml 1485 ml OutputOutput Total 45 ml 20 ml 85 ml BalanceBalance 1675 ml 620 ml 1400 ml Exam General: Patient is well-developed well-nourished. no acute distress Neck: Supple Lungs: Clear to auscultation bilaterally no crackles rales or wheezing Heart: Normal S1-S2, Regular rhythm and rate. No murmur, S3, or S4 Abdomen: Soft , mild tenderness with palpation, nondistended , bowel sounds are present Extremities: Normal to inspection, no edema no cyanosis Medications Medications Current Medications Morphine Sulfate (morphine SULFATE (PF)) 2 mg Q4H PRN IV moderate pain Last administered on 09/25/18at 03:03; Admin Dose 2 MG; Start 09/22/18 at 02:30 Morphine Sulfate (morphine) 4 mg Q4H PRN IV SEVERE PAIN LEVEL 7-10 Last administered on 09/23/18at 15:56; Admin Dose 4 MG; Start 09/22/18 at 02:30 Ondansetron HCl (Zofran Inj) 4 mg Q4 PRN IV NAUSEA AND/OR VOMITING Last admin istered on 09/22/18at 20:43; Admin Dose 4 MG; Start 09/22/18 at 02:30 Sodium Chloride 1,000 ml @ 100 mls/hr Q10H IV Last administered on 09/26/18at 11:03; Admin Dose 100 MLS/HR; Start 09/22/18 at 02:19 IV Flush (NS 3 ml) 3 ml PER PROTOCOL IV ; Start 09/22/18 at 02:30 Acetaminophen (Tylenol Tab) 650 mg Q6H PRN PO PAIN LEVEL 1-3 OR FEVER; Start 09/22/18 at 02:30 Docusate Sodium (Colace) 100 mg Q12H PRN PO CONSTIPATION; Start 09/22/18 at 02:30 Bisacodyl (Dulcolax) 5 mg DAILY PRN PO CONSTIPATION; Start 09/22/18 at 02:30 Piperacillin Sod/ Tazobactam Sod 100 ml @ 200 mls/hr Q8 IVPB Last administered on 09/26/18at 14:00; Admin Dose 200 MLS/HR; Start 09/22/18 at 06:00 Heparin Sodium (Porcine) (Heparin (5000 Units/1ml)) 5,000 unit Q12 SC Last administered on 09/26/18at 08:26; Admin Dose 5,000 UNIT; Start 09/23/18 at 10:20 Naproxen (Naprosyn) 500 mg BID PRN PO PAIN LEVEL 1-3; Start 09/25/18 at 09:00 Sodium Chloride (Deep Sea) 2 spray BID NASAL Last administered on 09/26/18at 14:00; Admin Dose 2 SPRAY; Start 09/26/18 at 13:30 Phenol (Cepastat Lozenge) 1 lozenge Q1H PRN MT sore throat Last administered on 09/26/18at 13:01; Admin Dose 1 LOZENGE; Start 09/26/18 at 12:30 Benzonatate (Tessalon) 100 mg TID PRN PO cough; Start 09/26/18 at 12:30 RADHA HERNANDES MD Sep 26, 2018 16:38
[2018-09-26] MEDS: BENZONATATE 100 MG CAP PO PRN ×2 (17:42→21:06)
[2018-09-26 20:40] VITALS: BP 160/81; PULSE 100; RESP 18
[2018-09-26 22:30] VITALS: BP 134/69; PULSE 94; RESP 18
[2018-09-27 02:00] VITALS: BP 153/85; PULSE 103; RESP 18
[2018-09-27] MEDS: PIPER-TAZO 3.375 GM IV (PMX) 100 ML IVPB SCH ×3 (05:48→21:26)
[2018-09-27] MEDS: BENZONATATE 100 MG CAP PO PRN ×3 (05:53→20:26)
[2018-09-27 08:23] VITALS: BP 139/77; PULSE 111; RESP 17
[2018-09-27] MEDS: SALINE 0.65% 45 ML NAS SPRAY NASAL SCH ×2 (08:57→20:26)
--- NOTE | 2018-09-27 08:59 | PN ---
Date/Time of Note Date/Time of Note DATE: 09/27/18 TIME: 08:59 Assessment/Plan VTE Prophylaxis Risk score (from [facility])>0 risk: 4 SCD applied (from [facility]): Yes Pharmacological prophylaxis: NA/contraindicated Pharm contraindication: surgical contra Lines/Catheters IV Catheter Type (from [facility]): Peripheral IV Assessment/Plan Assessment/Plan 1. 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 Would like patient to be clinically stable prior to discharge home. Still with low grade temp and tachycardia this am. Encouraged ambulation and IS - No complications during surgery but did need emergent ERCP for choledocholithiasis - Will be d/c with DANNI drain and CM consulted for HH for DANNI drain care. Will need to follow up with Dr. Castro next week for DANNI drain removal 2. Choledocholithiasis s/p ERCP - GI on board and appreciate recommendations. ERCP performed yesterday 09/23 and tolerated well - LFTs normalized and tolerating PO diet - Will continue advancing diet as tolerated 3. Obesity - diet modification counseling offered 4. Dry cough- resolve - most likely associated with post nasal drip - will start nasal saline and cough drops 5. Disposition - Patient with tachycardia and mild elevated temp overnight. Encouraged to ambulate and IS. If remains afebrile and vitals stable, can be d/c tomorrow with DANNI drain in place per Surgery Result Diagram: 09/27/18 0526 09/26/18 0954 Results 24hrs Laboratory Tests Test 09/26/18 09:54 09/27/18 05:26 White Blood Count 11.4 H 8.4 # Red Blood Count 3.66 L 3.58 L Hemoglobin 11.7 L 11.4 L Hematocrit 33.7 L 33.4 L Mean Corpuscular Volume 92.1 93.3 Mean Corpuscular Hemoglobin 32.0 31.8 Mean Corpuscular Hemoglobin Concent 34.7 34.1 Red Cell Distribution Width 12.1 12.1 Platelet Count 296 293 Mean Platelet Volume 11.0 H 10.9 H Immature Granulocytes % 1.100 H 1.600 H Neutrophils % 77.6 H 78.6 H Lymphocytes % 13.1 L 11.6 L Monocytes % 5.6 5.9 Eosinophils % 2.2 1.8 Basophils % 0.4 0.5 Nucleated Red Blood Cells % 0.0 0.0 Immature Granulocytes # 0.130 H 0.130 H Neutrophils # 8.8 H 6.6 Lymphocytes # 1.5 1.0 Monocytes # 0.6 0.5 Eosinophils # 0.3 0.2 Basophils # 0.1 0.0 Nucleated Red Blood Cells # 0.0 0.0 Sodium Level 141 Potassium Level 3.4 L Chloride Level 104 Carbon Dioxide Level 24 Anion Gap 13 Blood Urea Nitrogen 6 L Creatinine 0.64 Est Glomerular Filtrat Rate mL/min > 60 Glucose Level 158 Calcium Level 8.8 Total Bilirubin 0.4 Direct Bilirubin 0.00 Indirect Bilirubin 0.4 Aspartate Amino Transf (AST/SGOT) 28 Alanine Aminotransferase (ALT/SGPT) 59 Alkaline Phosphatase 108 Total Protein 6.6 Albumin 3.3 Globulin 3.30 H Albumin/Globulin Ratio 1.00 Subjective 24 Hr Interval Summary Free Text/Dictation Patient with tachycardia this am and low grade temp over night. Dry cough has improved and denies any worsening of abdominal pain. Exam/Review of Systems Vital Signs Vitals Vital Signs Date Temp Pulse Resp B/P (MAP) Pulse Ox O2 O2 Flow FiO2 Time Delivery Rate 09/27/18 96.8 111 17 139/77 94 Room Air 08:23 (97) 09/23/18 2.0 20:00 Intake and Output 09/26/18 09/26/18 09/27/18 1515:00 23:00 07:00 IntakeIntake Total 1355 ml 1350 ml 1100 ml OutputOutput Total 40 ml 40 ml 58 ml BalanceBalance 1315 ml 1310 ml 1042 ml Exam General: Patient is well-developed well-nourished. no acute distress Neck: Supple Lungs: Clear to auscultation bilaterally no crackles rales or wheezing Heart: Normal S1-S2, Regular rhythm and tachycardia. No murmur, S3, or S4 Abdomen: Soft , nontender with palpation, nondistended , bowel sounds are present Extremities: Normal to inspection, no edema no cyanosis Medications Medications Current Medications Morphine Sulfate (morphine SULFATE (PF)) 2 mg Q4H PRN IV moderate pain Last administered on 09/25/18at 03:03; Admin Dose 2 MG; Start 09/22/18 at 02:30 Morphine Sulfate (morphine) 4 mg Q4H PRN IV SEVERE PAIN LEVEL 7-10 Last administered on 09/23/18 15:56; Admin Dose 4 MG; Start 09/22/18 at 02:30 Ondansetron HCl (Zofran Inj) 4 mg Q4 PRN IV NAUSEA AND/OR VOMITING Last administered on 09/22/18 20:43; Admin Dose 4 MG; Start 09/22/18 at 02:30 Sodium Chloride 1,000 ml @ 100 mls/hr Q10H IV Last administered on 09/26/18 21:44; Admin Dose 100 MLS/HR; Start 09/22/18 at 02:19 IV Flush (NS 3 ml) 3 ml PER PROTOCOL IV ; Start 09/22/18 at 02:30 Acetaminophen (Tylenol Tab) 650 mg Q6H PRN PO PAIN LEVEL 1-3 OR FEVER; Start 09/22/18 at 02:30 Docusate Sodium (Colace) 100 mg Q12H PRN PO CONSTIPATION; Start 09/22/18 at 02:30 Bisacodyl (Dulcolax) 5 mg DAILY PRN PO CONSTIPATION; Start 09/22/18 at 02:30 Piperacillin Sod/ Tazobactam Sod 100 ml @ 200 mls/hr Q8 IVPB Last administered on 09/27/18 05:48; Admin Dose 200 MLS/HR; Start 09/22/18 at 06:00 Heparin Sodium (Porcine) (Heparin (5000 Units/1ml)) 5,000 unit Q12 SC Last administered on 09/26/18 21:02; Admin Dose 5,000 UNIT; Start 09/23/18 at 10:20 Naproxen (Naprosyn) 500 mg BID PRN PO PAIN LEVEL 1-3; Start 09/25/18 at 09:00 Sodium Chloride (Deep Sea) 2 spray BID NASAL Last administered on 09/26/18 21:03; Admin Dose 2 SPRAY; Start 09/26/18 at 13:30 Phenol (Cepastat Lozenge) 1 lozenge Q1H PRN MT sore throat Last administered on 09/26/18 21:00; Admin Dose 1 LOZENGE; Start 09/26/18 at 12:30 Benzonatate (Tessalon) 100 mg TID PRN PO cough Last administered on 09/27/18 05:53; Admin Dose 100 MG; Start 09/26/18 at 12:30 RADHA HERNANDES MD Sep 27, 2018 08:59
[2018-09-27] MEDS: HEPARIN 5,000 UNIT/1 ML VIAL SC SCH ×2 (09:00→20:29)
[2018-09-27] MEDS: CEPASTAT LOZENGE MT PRN ×2 (13:51→20:26)
--- NOTE | 2018-09-27 13:53 | PN ---
Date/Time of Note Date/Time of Note DATE: 09/27/18 TIME: 13:43 Assessment/Plan Lines/Catheters IV Catheter Type (from [facility]): Peripheral IV Assessment/Plan Chief Complaint/Hosp Course 1. Gallstone pancreatitis: Lipase normalized 2. 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 Hyperbilirubinemia: No MR evidence of choledocholithiasis on prior scan; normalized and now elevated; concern for choledocholithiasis: Status post ERCP with noted choledocholithiasis; bilirubin normalized 4. Mild fatty liver: With minimally elevated ALT; status post liver wedge bi opsy: macrovesicular steatosis; improving -Encourage weight loss 5. Bilateral inguinal hernias -Encourage weight loss -Eventual surgical repair 6. Leukocytosis: resolved 7. Diverticulosis without diverticulitis: -Lifestyle changes Thank you. Patient seen and examined in collaboration with Dr. Freddie Castro. Subjective 24 Hr Interval Summary Feels well. Min temp and tachycardia. No chills, sob, congested cough, cp, palpitations, barr, dizziness, n/v/d/dysuria. Exam/Review of Systems Vital Signs Vitals Vital Signs Date Temp Pulse Resp B/P (MAP) Pulse Ox O2 O2 Flow FiO2 Time Delivery Rate 09/27/18 98.3 09:16 09/27/18 111 17 139/77 94 Room Air 08:23 (97) 09/23/18 2.0 20:00 Intake and Output 09/26/18 09/26/18 09/27/18 1515:00 23:00 07:00 IntakeIntake Total 1355 ml 1350 ml 1100 ml OutputOutput Total 40 ml 40 ml 58 ml BalanceBalance 1315 ml 1310 ml 1042 ml Exam Free Text/Dictation Constitutional: alert, oriented Psych: nl mood/affect; No anxiety Head: normocephalic, atraumatic Eyes: nl conjunctiva, EOMI, nl sclera ENMT: nl external ears & nose, nl lips & teeth, mucosa pink and moist Neck: supple, non-tender; No jvd Respiratory: No congested cough, bilat LL: diminished Cardiovascular: regular rate and rhythm, nl pulses; No edema Gastrointestinal: soft, non-distended; minimal tender (tod-incisional: Incision sites dry without drainage/discoloration/bruising; DANNI with serosanguineous drainage) Musculoskeletal: nl extremities to inspection, nl gait and stance Extremities: normal pulses Neurological: nl mental status, nl speech, nl strength Skin: No rash or lesions Results Result Diagram: 09/27/18 0526 09/26/18 0954 RACHEL BOBBY NP Sep 27, 2018 13:53
[2018-09-27 15:00] VITALS: PULSE 121
[2018-09-27 20:05] VITALS: BP 124/66; PULSE 123; RESP 18
[2018-09-27] MEDS: ACETAMINOPHEN 325 MG TAB PO PRN (20:26)
[2018-09-27] MEDS ORDERED: IBUPROFEN 600 MG TAB ONE (21:19)
[2018-09-27] MEDS ORDERED: IBUPROFEN 600 MG TAB PO ONE (21:30)
[2018-09-27] MEDS ORDERED: SOD CHLORIDE 0.9% 500 ML IV ONE (22:30)
[2018-09-28 02:25] VITALS: BP 106/56; PULSE 85; RESP 18
[2018-09-28] MEDS: PIPER-TAZO 3.375 GM IV (PMX) 100 ML IVPB SCH ×3 (05:23→22:05)
[2018-09-28 08:33] VITALS: BP 133/74; PULSE 93; RESP 17
[2018-09-28] MEDS: SALINE 0.65% 45 ML NAS SPRAY NASAL SCH ×2 (08:35→20:29)
[2018-09-28] MEDS: HEPARIN 5,000 UNIT/1 ML VIAL SC SCH ×2 (08:37→20:32)
[2018-09-28] MEDS: BENZONATATE 100 MG CAP PO PRN ×2 (08:46→22:13)
--- NOTE | 2018-09-28 09:38 | PN ---
Date/Time of Note Date/Time of Note DATE: 09/28/18 TIME: 09:32 Assessment/Plan Lines/Catheters IV Catheter Type (from [facility]): Peripheral IV Assessment/Plan Chief Complaint/Hosp Course 1. Gallstone pancreatitis: Lipase normalized 2. 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 Hyperbilirubinemia: No MR evidence of choledocholithiasis on prior scan; normalized and now elevated; concern for choledocholithiasis: Status post ERCP with noted choledocholithiasis; bilirubin normalized 4. Mild fatty liver: With minimally elevated ALT; status post liver wedge biopsy: macrovesicular steatosis; improving -Encourage weight loss 5. Bilateral inguinal hernias -Encourage weight loss -Eventual surgical repair 6. Leukocytosis: resolved 7. Diverticulosis without diverticulitis: -Lifestyle changes Thank you. Patient seen and examined in collaboration with Dr. Freddie Castro. Subjective 24 Hr Interval Summary fever overnight. No abdominal pain. moderate output from drain. No chills, sob, congested cough, cp, palpitations, barr, dizziness, n/v/d/dysuria. Exam/Review of Systems Vital Signs Vitals Vital Signs Date Temp Pulse Resp B/P (MAP) Pulse Ox O2 O2 Flow FiO2 Time Delivery Rate 09/28/18 98.0 93 17 133/74 96 08:33 (93) 09/27/18 Room Air 08:23 Intake and Output 09/27/18 09/27/18 09/28/18 1515:00 23:00 07:00 IntakeIntake Total 460 ml 100 ml 960 ml OutputOutput Total 20 ml 40 ml 20 ml BalanceBalance 440 ml 60 ml 940 ml Exam Free Text/Dictation Constitutional: alert, oriented Psych: nl mood/affect; No anxiety Head: normocephalic, atraumatic Eyes: nl conjunctiva, EOMI, nl sclera ENMT: nl external ears & nose, nl lips & teeth, mucosa pink and moist Neck: supple, non-tender; No jvd Respiratory: No congested cough, bilat LL: diminished Cardiovascular: regular rate and rhythm, nl pulses; No edema Gastrointestinal: soft, non-distended; non tender (tod-incisional: Incision sites dry without drainage/discoloration/bruising; DANNI with serosanguineous drainage) Musculoskeletal: nl extremities to inspection, nl gait and stance Extremities: normal pulses Neurological: nl mental status, nl speech, nl strength Skin: No rash or lesions Results Result Diagram: 09/28/18 0459 09/28/18 0459 RACHEL BOBBY NP Sep 28, 2018 09:38
--- NOTE | 2018-09-28 12:47 | CONS ---
DATE OF ADMISSION: 09/22/2018 DATE OF CONSULTATION: 09/28/2018 TYPE OF CONSULTATION: Infectious disease. REASON FOR CONSULTATION: Antibiotic management. HISTORY OF PRESENT ILLNESS: Ivan Guajardo is a 53-year-old male who was admitted to medical surgery for probable gallstone pancreatitis and questionable cholecystitis. The patient was diagnos ed with gallstone pancreatitis at [facility] and transferred to [facility]. He initially presented on 09/18/2018 with complaints of right upper quadrant pain associated wi th nausea and vomiting. His intensity of pain was 9/10 was non-radiating, mostly located in the righ t upper quadrant, although he did have some lower abdominal pain and cramping. He had a CT scan perf ormed in the Emergency Room which showed acute pancreatitis with calcified wall of the frontal region of the gallbladder versus prominent gallstones and diverticulosis of the colon. Moderate size hiata l hernia, nonobstructive tiny stones in the right kidney. He also had bilateral inguinal hernias con taining fat, left greater than right. An ultrasound of the abdomen showed gallstones versus focal ca lcification of the gallbladder fundus as has been described on recent CT scan. He had a negative son ographic test. The patient was admitted to the hospital there and also had an MRCP performed, which according to the notes in the chart was negative for any common bile duct stone. Patient was also se en by general surgery and on their recommendation was to have cholecystectomy as there was clinical c oncern for possible cholecystitis. On arrival here, his temperature was 98.5, respirations of 18. V ital signs otherwise were stable and a BUN and creatinine are 14/1.5, total bilirubin 1.8, direct 1.1 , AST 656, ALT 693, alkaline phosphatase 143, white cells 143. His hemoglobin 16, hematocrit of 46, platelet count 251,000. Urinalysis was negative for leukocyte esterase and nitrites. MRI of the abd omen without contrast showed cholelithiasis confirmed on examination. No evidence of biliary duct di latation or choledocholithiasis and he had acute pancreatitis. HOSPITAL COURSE: The patient was seen by surgery by nurse practitioner who works with Dr. Stanislav bailey. ASSESSMENT: Gallstone pancreatitis. Lipase normalized. Cholelithiasis, possible cholecystitis, con cern for porcelain gallbladder. Recommend laparoscopic cholecystectomy, mild fatty liver. Encourage weight loss, bilateral inguinal hernias. White count on the 8th was 14.9, on the , white count w as 16,000. Assessment of GI was gallstone pancreatitis, endoscopy recommended. Dr. Nelson did an ER CP I believe, and noted to have choledocholithiasis post-sphincterotomy, post-stone removal small per i ampullary diverticulum. PROCEDURE PERFORMED: ERCP plus sphincterotomy and stone removal, pancreatography was avoided on purp ose; chose not to make pancreatitis worse. On the , white count was 13.4. LFTs were trending do wnward, gallstone pancreatitis, status post cholecystectomy, status post ERCP. Patient was feeling b neena on the . Patient remained with leukocytosis of 13.5 and was on Zosyn. On the the whi te count was 8.4, cholelithiasis with acute on chronic cholecystitis with porcelain gallbladder, stat us post laparoscopic cholecystectomy on 09/22/2018. Patient still with low grade temperature and tac hycardia, no complications during surgery, but needed an emergency ERCP for choledocholithiasis. The patient has a DANNI drain and Dr. Castro is following the patient. ERCP was done on 09/23/2018. The laparoscopic cholecystectomy was done on 09/22/2018. On 09/25/2018 the patient had a white count 13. 5, currently patient had a temperature up to 103.1 on the , etiology of which is not clear. He h ad 102.8, 102 0.3 and 102.3, 103.1, currently afebrile. Chest x-ray on the shows some mild patc hy bibasilar atelectasis. Blood cultures were ordered yesterday and urine cultures were ordered on t he as well. According to nurse practitioner , the patient has gallstone pancreatitis. Lip ase normalized, cholelithiasis status post laparoscopic cholecystectomy. She recommended ambulation. Continue antibiotics. Continue drain. HIDA and CT scan of the abdomen, hyperbilirubinemia and no evidence of choledocholithiasis on prior scan, concern for choledocholithiasis. Leukocytosis, resolv ed. PAST MEDICAL HISTORY: Operations as outlined. FAMILY HISTORY: Noncontributory. SOCIAL HISTORY: No history of smoking, drinking or abuse of drugs. ALLERGIES: None to penicillin, sulfa or foods. MEDICATIONS: Per chart. REVIEW OF SYSTEMS: As per HPI. PHYSICAL EXAMINATION: GENERAL: The patient is a well-developed, well-nourished male, alert and oriented, in no acute distr ess. VITAL SIGNS: Stable. He is afebrile. SKIN: Without generalized rash. HEENT: Within normal limits. NECK: Supple. LYMPH NODES: None palpable. CHEST: Decreased breath sounds at the bases. HEART: Without murmur or gallop. ABDOMEN: With a drain in place, status post laparoscopic cholecystectomy. EXTREMITIES: Without cyanosis, clubbing, or edema. RECTAL AND GENITAL: Deferred. NEUROLOGIC: No focal neurological abnormality. IMPRESSION AND PLAN: The patient had a temperature of 103.1. This could be related to some patchy i nfiltrates and the possibility of aspiration pneumonia. We also have to be concerned about abdominal infection, status post cholecystectomy and status post ERCP. Continue current Zosyn. We may add va ncomycin and change to meropenem if we have a problem related to his fever or leukocytosis. I will d ictate my findings to the hospitalists and to Drs. Castro and Leslie. Dictated By: INES RAINES MD, JD/NTS Conf#: [id number] DID#: [id number] CC: ARIANE EDWARDS MD;*EndCC*
--- NOTE | 2018-09-28 14:54 | PN ---
Date/Time of Note Date/Time of Note DATE: 09/28/18 TIME: 14:50 Assessment/Plan VTE Prophylaxis Risk score (from [facility])>0 risk: 3 SCD applied (from [facility]): Yes Pharmacological prophylaxis: other (scds) Lines/Catheters IV Catheter Type (from [facility]): Peripheral IV Assessment/Plan Hospital Course Assessment/Plan Assessment: Gallstone pancreatitis -Status post cholecystectomy 09/22/18 Direct hyperbilirubinemia with elevated LFTs- trending down - S/p ERCP 09/23/18 Choledocholithiasis. Post sphincterotomy. Post stone removal. Small periampullary diverticulum. Leukocytosis Diverticulosis without diverticulitis Mild fatty liver ETOH use Small patchy atelectasis versus aspiration pneumonitis Suspect 6.2 cm collection with multiple foci of air along the lower margin of the right hepatic lobe, surgical changes vs developing abscess as seen on imaging Plan: Monitor labs ABX per ID Continue current regimen Patient seen in collaboration with Dr. Nelson/Dionicio Subjective: Course reviewed with nursing staff Patient interviewed and examined All labs, imaging and other results reviewed Pt febrile yesterday with T-MAX 103.1- no fevers so far today No c/o abdominal pain or n/v today. Enc use of IS PHYSICAL EXAMINATION: GENERAL: Well developed, well nourished, alert & oriented x 3, in no acute distress SKIN:Surgical incisions, J.P. drain CARDIOVASCULAR: Heart: Regular rate and rhythm RESPIRATORY: Lungs clear to auscultation GASTROINTESTINAL AND LIVER: Abdomen: Soft, surgical tenderness, non-distended, no hernias, no masses, , normoactive bowel sounds. Rectal: Deferred. GENITOURINARY: Male genitalia within normal limits. EXTREMITIES: No cyanosis, clubbing or edema. Result Diagram: 09/28/18 0459 09/28/18 0459 Results 24hrs Laboratory Tests Test 09/27/18 21:45 09/27/18 22:04 09/28/18 04:59 Urine Color YELLOW Urine Clarity CLEAR Urine pH 5.0 Urine Specific Bude 1.016 Urine Ketones NEGATIVE Urine Nitrite NEGATIVE Urine Bilirubin NEGATIVE Urine Urobilinogen NEGATIVE Urine Leukocyte Esterase NEGATIVE Urine Microscopic RBC 0 Urine Microscopic WBC 1 Urine Hemoglobin 1+ H Urine Glucose NEGATIVE Urine Total Protein NEGATIVE Lactic Acid Level 1.0 White Blood Count 4.5 #L Red Blood Count 3.54 L Hemoglobin 11.2 L Hematocrit 33.0 L Mean Corpuscular Volume 93.2 Mean Corpuscular Hemoglobin 31.6 Mean Corpuscular Hemoglobin Concent 33.9 Red Cell Distribution Width 12.2 Platelet Count 265 Mean Platelet Volume 10.5 H Immature Granulocytes % 3.100 H Neutrophils % 67.7 Lymphocytes % 18.5 Monocytes % 9.6 Eosinophils % 0.4 Basophils % 0.7 Nucleated Red Blood Cells % 0.0 Immature Granulocytes # 0.140 H Neutrophils # 3.0 Lymphocytes # 0.8 Monocytes # 0.4 Eosinophils # 0.0 Basophils # 0.0 Nucleated Red Blood Cells # 0.0 Sodium Level 136 Potassium Level 3.5 Chloride Level 101 Carbon Dioxide Level 24 Anion Gap 11 Blood Urea Nitrogen 15 # Creatinine 1.23 Est Glomerular Filtrat Rate mL/min > 60 Glucose Level 104 # Calcium Level 8.1 L Magnesium Level 1.9 Total Bilirubin 0.1 L Direct Bilirubin 0.00 Indirect Bilirubin 0.1 Aspartate Amino Transf (AST/SGOT) 49 #H Alanine Aminotransferase (ALT/SGPT) 59 Alkaline Phosphatase 97 Total Protein 6.7 Albumin 3.3 Globulin 3.40 H Albumin/Globulin Ratio 0.97 Exam/Review of Systems Vital Signs Vitals Vital Signs Date Temp Pulse Resp B/P (MAP) Pulse Ox O2 O2 Flow FiO2 Time Delivery Rate 09/28/18 98.0 93 17 133/74 96 08:33 (93) 09/27/18 Room Air 08:23 Intake and Output 09/27/18 09/27/18 09/28/18 1515:00 23:00 07:00 IntakeIntake Total 460 ml 100 ml 960 ml OutputOutput Total 20 ml 40 ml 20 ml BalanceBalance 440 ml 60 ml 940 ml Medications Medications Current Medications Morphine Sulfate (morphine SULFATE (PF)) 2 mg Q4H PRN IV moderate pain Last administered on 09/25/18at 03:03; Admin Dose 2 MG; Start 09/22/18 at 02:30 Morphine Sulfate (morphine) 4 mg Q4H PRN IV SEVERE PAIN LEVEL 7-10 Last administered on 09/23/18at 15:56; Admin Dose 4 MG; Start 09/22/18 at 02:30 Ondansetron HCl (Zofran Inj) 4 mg Q4 PRN IV NAUSEA AND/OR VOMITING Last administered on 09/22/18at 20:43; Admin Dose 4 MG; Start 09/22/18 at 02:30 IV Flush (NS 3 ml) 3 ml PER PROTOCOL IV ; Start 09/22/18 at 02:30 Acetaminophen (Tylenol Tab) 650 mg Q6H PRN PO PAIN LEVEL 1-3 OR FEVER Last administered on 09/27/18 20:26; Admin Dose 650 MG; Start 09/22/18 at 02:30 Docusate Sodium (Colace) 100 mg Q12H PRN PO CONSTIPATION; Start 09/22/18 at 02:30 Bisacodyl (Dulcolax) 5 mg DAILY PRN PO CONSTIPATION; Start 09/22/18 at 02:30 Piperacillin Sod/ Tazobactam Sod 100 ml @ 200 mls/hr Q8 IVPB Last administered on 09/28/18 05:23; Admin Dose 200 MLS/HR; Start 09/22/18 at 06:00 Heparin Sodium (Porcine) (Heparin (5000 Units/1ml)) 5,000 unit Q12 SC Last administered on 09/28/18 08:37; Admin Dose 5,000 UNIT; Start 09/23/18 at 10:20 Naproxen (Naprosyn) 500 mg BID PRN PO PAIN LEVEL 1-3; Start 09/25/18 at 09:00 Sodium Chloride (Deep Sea) 2 spray BID NASAL Last administered on 09/28/18 08:35; Admin Dose 2 SPRAY; Start 09/26/18 at 13:30 Phenol (Cepastat Lozenge) 1 lozenge Q1H PRN MT sore throat Last administered on 09/27/18 20:26; Admin Dose 1 LOZENGE; Start 09/26/18 at 12:30 Benzonatate (Tessalon) 100 mg TID PRN PO cough Last administered on 09/28/18 08:46; Admin Dose 100 MG; Start 09/26/18 at 12:30 ARMOND DEAL Sep 28, 2018 14:54
[2018-09-28 15:34] VITALS: BP 104/66; PULSE 115; RESP 18
[2018-09-28] MEDS: ACETAMINOPHEN 325 MG TAB PO PRN ×2 (16:31→22:13)
--- NOTE | 2018-09-28 17:09 | PN ---
Date/Time of Note Date/Time of Note DATE: 09/28/18 TIME: 17:05 Objective Vitals Vital Signs Date Temp Pulse Resp B/P (MAP) Pulse Ox O2 O2 Flow FiO2 Time Delivery Rate 09/28/18 103.2 16:31 09/28/18 115 18 104/66 96 Room Air 15:34 (79) Intake and Output 09/27/18 09/27/18 09/28/18 1515:00 23:00 07:00 IntakeIntake Total 460 ml 100 ml 960 ml OutputOutput Total 20 ml 40 ml 20 ml BalanceBalance 440 ml 60 ml 940 ml Results Result Diagram: 09/28/18 0459 09/28/18 0459 Medications Medications Current Medications Morphine Sulfate (morphine SULFATE (PF)) 2 mg Q4H PRN IV moderate pain Last administered on 09/25/18at 03:03; Admin Dose 2 MG; Start 09/22/18 at 02:30 Morphine Sulfate (morphine) 4 mg Q4H PRN IV SEVERE PAIN LEVEL 7-10 Last administered on 09/23/18at 15:56; Admin Dose 4 MG; Start 09/22/18 at 02:30 Ondansetron HCl (Zofran Inj) 4 mg Q4 PRN IV NAUSEA AND/OR VOMITING Last administered on 09/22/18at 20:43; Admin Dose 4 MG; Start 09/22/18 at 02:30 IV Flush (NS 3 ml) 3 ml PER PROTOCOL IV ; Start 09/22/18 at 02:30 Acetaminophen (Tylenol Tab) 650 mg Q6H PRN PO PAIN LEVEL 1-3 OR FEVER Last administered on 09/28/18at 16:31; Admin Dose 650 MG; Start 09/22/18 at 02:30 Docusate Sodium (Colace) 100 mg Q12H PRN PO CONSTIPATION; Start 09/22/18 at 02:30 Bisacodyl (Dulcolax) 5 mg DAILY PRN PO CONSTIPATION; Start 09/22/18 at 02:30 Piperacillin Sod/ Tazobactam Sod 100 ml @ 200 mls/hr Q8 IVPB Last administered on 09/28/18at 15:15; Admin Dose 200 MLS/HR; Start 09/22/18 at 06:00 Heparin Sodium (Porcine) (Heparin (5000 Units/1ml)) 5,000 unit Q12 SC Last administered on 09/28/18at 08:37; Admin Dose 5,000 UNIT; Start 09/23/18 at 10:20 Naproxen (Naprosyn) 500 mg BID PRN PO PAIN LEVEL 1-3; Start 09/25/18 at 09:00 Sodium Chloride (Deep Sea) 2 spray BID NASAL Last administered on 09/28/18at 08:35; Admin Dose 2 SPRAY; Start 09/26/18 at 13:30 Phenol (Cepastat Lozenge) 1 lozenge Q1H PRN MT sore throat Last administered on 09/27/18at 20:26; Admin Dose 1 LOZENGE; Start 09/26/18 at 12:30 Benzonatate (Tessalon) 100 mg TID PRN PO cough Last administered on 09/28/18at 08:46; Admin Dose 100 MG; Start 09/26/18 at 12:30 VTE Prophylaxis Risk score (from [facility])>0 risk: 3 SCD applied (from [facility]): Yes Lines/Catheters IV Catheter Type: Astorga in Place: No Assessment/Plan Hospital Course Subjective fever overnight, minimal to no ab pain Objective Physical exam General: Patient is laying in bed and answers questions appropriately Mentation: Patient is alert and oriented 4, Head: Normocephalic atraumatic Eyes: EOMI, pupils reactive to light Neck: Supple, nontender, midline Respiratory: Clear to auscultation bilaterally Cardiovascular: regular rate, no obvious murmurs Gastrointestinal: Minimally tender to palpation, bowel sounds heard. Neurological: Moves all extremities spontaneously Skin: No new skin lesions Assessment/Plan 1. 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 Would like patient to be clinically stable prior to discharge home. Still with temp and tachycardia. Encouraged ambulation and IS - No complications during surgery but did need emergent ERCP for choledocholithiasis 2. Choledocholithiasis s/p ERCP - GI on board and appreciate recommendations. ERCP performed yesterday 09/23 and tolerated well - LFTs normalized and tolerating PO diet - Will continue advancing diet as tolerated sepsis -ID consulted -blood cultures pending -cont IV abx -CT ab and HIDA done. ? abscess vs post surgical changes, defer to gen surg 3. Obesity - diet modification counseling offered 4. Dry cough- resolved - most likely associated with post nasal drip - will start nasal saline and cough drops 5. Disposition - Patient with tachycardia and still with temp -monitor LINNETTE BLUE Sep 28, 2018 17:09
[2018-09-28] MEDS: SOD CHLORIDE 0.9% 1,000 ML IV SCH (17:20)
[2018-09-28 20:24] VITALS: BP 109/61; PULSE 90; RESP 18
[2018-09-29 02:30] VITALS: BP 129/72; PULSE 79; RESP 18
[2018-09-29] MEDS: PIPER-TAZO 3.375 GM IV (PMX) 100 ML IVPB SCH ×2 (05:31→13:24)
[2018-09-29 08:00] VITALS: BP 107/70; PULSE 92; RESP 18
[2018-09-29] MEDS ORDERED: VANCOMYCIN IV PER PHARMACY XX SCH (09:00)
[2018-09-29] MEDS: SALINE 0.65% 45 ML NAS SPRAY NASAL SCH ×2 (09:15→20:28)
[2018-09-29] MEDS: HEPARIN 5,000 UNIT/1 ML VIAL SC SCH ×2 (09:17→20:28)
[2018-09-29] MEDS ORDERED: VANCOMYCIN HCL 2 GM in SOD CHLORIDE 0.9% 500 ML IVPB ONE (10:30)
[2018-09-29] MEDS: BENZONATATE 100 MG CAP PO PRN ×2 (11:15→20:27)
--- NOTE | 2018-09-29 11:24 | PN ---
Date/Time of Note Date/Time of Note DATE: 09/29/18 TIME: 11:20 Assessment/Plan Lines/Catheters IV Catheter Type (from [facility]): Peripheral IV Astorga in Place (from [facility]): No Assessment/Plan Chief Complaint/Hosp Course 1. Gallstone pancreatitis: Lipase normalized CT noted with pancreatitis; lipase normal 2. Symptomatic cholelithiasis, acute on chronic cholecystitis with porcelain gallbladder: Status post laparoscopic cholecystectomy 09/22/18; fevers, high than normal; CT abdomen: Fluid collection in the inferior border of right liver lobe (concern for abscess; had discussion with radiologist for possible IR drainage of fluid collection; radiologist would like to compare prior imaging from outside hospital will attempt to obtain images/CD from outside hospital -IS -ambulate -ice pack to abdominal wall -advance diet as tolerated -Continue antibiotics -Continue drain -IR drainage of fluid 3. Hyperbilirubinemia: No MR evidence of choledocholithiasis on prior scan; normalized and now elevated; concern for choledocholithiasis: Status post ERCP with noted choledocholithiasis; bilirubin normalized 4. Mild fatty liver: With minimally elevated ALT; status post liver wedge biopsy: macrovesicular steatosis; improving -Encourage weight loss 5. Bilateral inguinal hernias -Encourage weight loss -Eventual surgical repair 6. Leukocytosis: resolved 7. Diverticulosis without diverticulitis: -Lifestyle changes Thank you. Patient seen and examined in collaboration with Dr. Freddie Castro. Subjective 24 Hr Interval Summary Fevers. No abdominal pain or distention. + Bowel function. No chills, sob, congested cough, cp, palpitations, barr, dizziness, nausea, vomiting, diarrhea, dysuria. Exam/Review of Systems Vital Signs Vitals Vital Signs Date Temp Pulse Resp B/P (MAP) Pulse Ox O2 O2 Flow FiO2 Time Delivery Rate 09/29/18 99.7 92 18 107/70 96 Room Air 08:00 (82) Intake and Output 09/28/18 09/28/18 09/29/18 1515:00 23:00 07:00 IntakeIntake Total 200 ml 1325 ml OutputOutput Total 30 ml BalanceBalance -30 ml 200 ml 1325 ml Exam Free Text/Dictation Constitutional: alert, oriented Psych: nl mood/affect; No anxiety Head: normocephalic, atraumatic Eyes: nl conjunctiva, EOMI, nl sclera ENMT: nl external ears & nose, nl lips & teeth, mucosa pink and moist Neck: supple, non-tender; No jvd Respiratory: No congested cough, bilat LL: diminished Cardiovascular: regular rate and rhythm, nl pulses; No edema Gastrointestinal: soft, non-distended; non tender (tod-incisional: Incision sites dry without drainage/discoloration/bruising; DANNI with serosanguineous drainage) Musculoskeletal: nl extremities to inspection, nl gait and stance Extremities: normal pulses Neurological: nl mental status, nl speech, nl strength Skin: No rash or lesions Results Result Diagram: 09/29/18 0455 09/29/18 0455 RACHEL BOBBY NP Sep 29, 2018 11:24
--- NOTE | 2018-09-29 13:08 | PN ---
Date/Time of Note Date/Time of Note DATE: 09/29/18 TIME: 13:04 Assessment/Plan VTE Prophylaxis Risk score (from [facility])>0 risk: 3 SCD applied (from [facility]): Yes Pharmacological prophylaxis: other (scds) Lines/Catheters IV Catheter Type (from [facility]): Peripheral IV Urinary Cath still in place: No Assessment/Plan Hospital Course Assessment/Plan Assessment: Gallstone pancreatitis -Status post cholecystectomy 09/22/18 Direct hyperbilirubinemia with elevated LFTs- trending down - S/p ERCP 09/23/18 Choledocholithiasis. Post sphincterotomy. Post stone removal. Small periampullary diverticulum. Leukocytosis Diverticulosis without diverticulitis Mild fatty liver -s/p liver wedge bx: Macrovesicular steatosis, minimal. ETOH use Small patchy atelectasis versus aspiration pneumonitis Suspect 6.2 cm collection with multiple foci of air along the lower margin of the right hepatic lobe, surgical changes vs developing abscess as seen on imaging Plan: CT with abscess drainage - today- defer to surgery and ID Gi will sign off but will be available upon reconsult as needed Patient seen in collaboration with Dr. Nelson/Dionicio Subjective: Course reviewed with nursing staff Patient interviewed and examined All labs, imaging and other results reviewed Pt continues to have fevers, plan for CT drainage of abscess today. No c/o abd pain, nausea or vomiting, No further GI recommendation GI will sign off but will be available as needed PHYSICAL EXAMINATION: GENERAL: Well developed, well nourished, alert & oriented x 3, in no acute distress SKIN:Surgical incisions, J.P. drain CARDIOVASCULAR: Heart: Regular rate and rhythm RESPIRATORY: Lungs clear to auscultation GASTROINTESTINAL AND LIVER: Abdomen: Soft, surgical tenderness, non-distended, no hernias, no masses, , normoactive bowel sounds. Rectal: Deferred. GENITOURINARY: Male genitalia within normal limits. EXTREMITIES: No cyanosis, clubbing or edema. Result Diagram: 09/29/18 0455 09/29/185 Results 24hrs Laboratory Tests Test 09/29/18 04:55 White Blood Count 4.1 L Red Blood Count 3.76 L Hemoglobin 11.9 L Hematocrit 35.3 L Mean Corpuscular Volume 93.9 Mean Corpuscular Hemoglobin 31.6 Mean Corpuscular Hemoglobin Concent 33.7 Red Cell Distribution Width 12.5 Platelet Count 293 Mean Platelet Volume 10.4 Immature Granulocytes % 1.500 H Neutrophils % 51.2 Lymphocytes % 38.7 Monocytes % 7.7 Eosinophils % 0.2 Basophils % 0.7 Nucleated Red Blood Cells % 0.0 Immature Granulocytes # 0.060 H Neutrophils # 2.1 Lymphocytes # 1.6 Monocytes # 0.3 Eosinophils # 0.0 Basophils # 0.0 Nucleated Red Blood Cells # 0.0 Sodium Level 139 Potassium Level 3.8 Chloride Level 103 Carbon Dioxide Level 25 Anion Gap 11 Blood Urea Nitrogen 14 Creatinine 1.01 Est Glomerular Filtrat Rate mL/min > 60 Glucose Level 114 Calcium Level 8.3 L Magnesium Level 2.1 Total Bilirubin 0.0 L Direct Bilirubin 0.00 Indirect Bilirubin 0.0 Aspartate Amino Transf (AST/SGOT) 50 H Alanine Aminotransferase (ALT/SGPT) 58 Alkaline Phosphatase 102 Total Protein 6.6 Albumin 3.4 Globulin 3.20 Albumin/Globulin Ratio 1.06 Lipase 186 Exam/Review of Systems Vital Signs Vitals Vital Signs Date Temp Pulse Resp B/P (MAP) Pulse Ox O2 O2 Flow FiO2 Time Delivery Rate 09/29/18 99.7 92 18 107/70 96 Room Air 08:00 (82) Intake and Output 09/28/18 09/28/18 09/29/18 1515:00 23:00 07:00 IntakeIntake Total 200 ml 1325 ml OutputOutput Total 30 ml BalanceBalance -30 ml 200 ml 1325 ml Medications Medications Current Medications Morphine Sulfate (morphine SULFATE (PF)) 2 mg Q4H PRN IV moderate pain Last administered on 09/25/18at 03:03; Admin Dose 2 MG; Start 09/22/18 at 02:30 Morphine Sulfate (morphine) 4 mg Q4H PRN IV SEVERE PAIN LEVEL 7-10 Last administered on 09/23/18at 15:56; Admin Dose 4 MG; Start 09/22/18 at 02:30 Ondansetron HCl (Zofran Inj) 4 mg Q4 PRN IV NAUSEA AND/OR VOMITING Last administered on 09/22/18at 20:43; Admin Dose 4 MG; Start 09/22/18 at 02:30 IV Flush (NS 3 ml) 3 ml PER PROTOCOL IV ; Start 09/22/18 at 02:30 Acetaminophen (Tylenol Tab) 650 mg Q6H PRN PO PAIN LEVEL 1-3 OR FEVER Last administered on 09/28/18at 22:13; Admin Dose 650 MG; Start 09/22/18 at 02:30 Docusate Sodium (Colace) 100 mg Q12H PRN PO CONSTIPATION; Start 09/22/18 at 02:30 Bisacodyl (Dulcolax) 5 mg DAILY PRN PO CONSTIPATION; Start 09/22/18 at 02:30 Piperacillin Sod/ Tazobactam Sod 100 ml @ 200 mls/hr Q8 IVPB Last administered on 09/29/18at 05:31; Admin Dose 200 MLS/HR; Start 09/22/18 at 06:00 Heparin Sodium (Porcine) (Heparin (5000 Units/1ml)) 5,000 unit Q12 SC Last administered on 09/29/18 09:17; Admin Dose 5,000 UNIT; Start 09/23/18 at 10:20 Naproxen (Naprosyn) 500 mg BID PRN PO PAIN LEVEL 1-3; Start 09/25/18 at 09:00 Sodium Chloride (Deep Sea) 2 spray BID NASAL Last administered on 09/29/18at 09:15; Admin Dose 2 SPRAY; Start 09/26/18 at 13:30 Phenol (Cepastat Lozenge) 1 lozenge Q1H PRN MT sore throat Last administered on 09/27/18at 20:26; Admin Dose 1 LOZENGE; Start 09/26/18 at 12:30 Benzonatate (Tessalon) 100 mg TID PRN PO cough Last administered on 09/29/18 11:15; Admin Dose 100 MG; Start 09/26/18 at 12:30 Sodium Chloride 1,000 ml @ 50 mls/hr Q20H IV Last administered on 09/28/18at 17:20; Admin Dose 50 MLS/HR; Start 09/28/18 at 17:30 Vancomycin HCl (Vanco Iv Per Pharmacy) VANCOMYCIN PER PHARMACY PER PROTOCOL XX ; Start 09/29/18 at 09:00 Vancomycin HCl 2 gm/Sodium Chloride 500 ml @ 125 mls/hr ONCE ONCE IVPB Last administered on 09/29/18at 11:09; Admin Dose 125 MLS/HR; Start 09/29/18 at 10:30; Stop 09/29/18 at 14:29 Vancomycin HCl 1.25 gm/Sodium Chloride 250 ml @ 83.333 mls/ hr Q12H IVPB ; S tart 09/29/18 at 22:00 ARMOND DEAL Sep 29, 2018 13:08
[2018-09-29] MEDS: SOD CHLORIDE 0.9% 1,000 ML IV SCH (13:24)
--- NOTE | 2018-09-29 13:39 | PN ---
Date/Time of Note Date/Time of Note DATE: 09/29/18 TIME: 13:36 Objective Vitals Vital Signs Date Temp Pulse Resp B/P (MAP) Pulse Ox O2 O2 Flow FiO2 Time Delivery Rate 09/29/18 99.7 92 18 107/70 96 Room Air 08:00 (82) Intake and Output 09/28/18 09/28/18 09/29/18 1515:00 23:00 07:00 IntakeIntake Total 200 ml 1325 ml OutputOutput Total 30 ml BalanceBalance -30 ml 200 ml 1325 ml Results Result Diagram: 09/29/185 09/29/18 0455 Medications Medications Current Medications Morphine Sulfate (morphine SULFATE (PF)) 2 mg Q4H PRN IV moderate pain Last administered on 09/25/18 03:03; Admin Dose 2 MG; Start 09/22/18 at 02:30 Morphine Sulfate (morphine) 4 mg Q4H PRN IV SEVERE PAIN LEVEL 7-10 Last administered on 09/23/18at 15:56; Admin Dose 4 MG; Start 09/22/18 at 02:30 Ondansetron HCl (Zofran Inj) 4 mg Q4 PRN IV NAUSEA AND/OR VOMITING Last administered on 09/22/18at 20:43; Admin Dose 4 MG; Start 09/22/18 at 02:30 IV Flush (NS 3 ml) 3 ml PER PROTOCOL IV ; Start 09/22/18 at 02:30 Acetaminophen (Tylenol Tab) 650 mg Q6H PRN PO PAIN LEVEL 1-3 OR FEVER Last administered on 09/28/18at 22:13; Admin Dose 650 MG; Start 09/22/18 at 02:30 Docusate Sodium (Colace) 100 mg Q12H PRN PO CONSTIPATION; Start 09/22/18 at 02:30 Bisacodyl (Dulcolax) 5 mg DAILY PRN PO CONSTIPATION; Start 09/22/18 at 02:30 Piperacillin Sod/ Tazobactam Sod 100 ml @ 200 mls/hr Q8 IVPB Last administered on 09/29/18at 13:24; Admin Dose 200 MLS/HR; Start 09/22/18 at 06:00 Heparin Sodium (Porcine) (Heparin (5000 Units/1ml)) 5,000 unit Q12 SC Last administered on 09/29/18at 09:17; Admin Dose 5,000 UNIT; Start 09/23/18 at 10:20 Naproxen (Naprosyn) 500 mg BID PRN PO PAIN LEVEL 1-3; Start 09/25/18 at 09:00 Sodium Chloride (Deep Sea) 2 spray BID NASAL Last administered on 09/29/18 09:15; Admin Dose 2 SPRAY; Start 09/26/18 at 13:30 Phenol (Cepastat Lozenge) 1 lozenge Q1H PRN MT sore throat Last administered on 09/27/18 20:26; Admin Dose 1 LOZENGE; Start 09/26/18 at 12:30 Benzonatate (Tessalon) 100 mg TID PRN PO cough Last administered on 09/29/18 11:15; Admin Dose 100 MG; Start 09/26/18 at 12:30 Sodium Chloride 1,000 ml @ 50 mls/hr Q20H IV Last administered on 09/29/18 13:24; Admin Dose 50 MLS/HR; Start 09/28/18 at 17:30 Vancomycin HCl (Vanco Iv Per Pharmacy) VANCOMYCIN PER PHARMACY PER PROTOCOL XX ; Start 09/29/18 at 09:00 Vancomycin HCl 2 gm/Sodium Chloride 500 ml @ 125 mls/hr ONCE ONCE IVPB Last administered on 09/29/18 11:09; Admin Dose 125 MLS/HR; Start 09/29/18 at 10:30; Stop 09/29/18 at 14:29 Vancomycin HCl 1.25 gm/Sodium Chloride 250 ml @ 83.333 mls/ hr Q12H IVPB ; Start 09/29/18 at 22:00 VTE Prophylaxis Risk score (from Nsg)>0 risk: 3 SCD applied (from Ns): Yes Lines/Catheters IV Catheter Type: Astorga in Place: No Assessment/Plan Hospital Course Subjective still fever overnight, minimal to no ab pain Objective Physical exam General: Patient is laying in bed and answers questions appropriately Mentation: Patient is alert and oriented 4, Head: Normocephalic atraumatic Eyes: EOMI, pupils reactive to light Neck: Supple, nontender, midline Respiratory: Clear to auscultation bilaterally Cardiovascular: regular rate, no obvious murmurs Gastrointestinal: Minimally tender to palpation, bowel sounds heard. Neurological: Moves all extremities spontaneously Skin: No new skin lesions Assessment/Plan Abscess/fluid collection? 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 Would like patient to be clinically stable prior to discharge home. Still with temp and tachycardia. Encouraged ambulation and IS - No complications during surgery but did need emergent ERCP for choledocholithiasis Choledocholithiasis s/p ERCP - GI on board and appreciate recommendations. ERCP performed yesterday 09/23 and tolerated well - LFTs normalized and tolerating PO diet - Will continue advancing diet as tolerated sepsis -ID consulted -blood cultures pending -cont IV abx -CT ab and HIDA done. ? abscess vs post surgical changes, defer to gen surg, possible abscess Obesity - diet modification counseling offered Dry cough- resolved - most likely associated with post nasal drip - will start nasal saline and cough drops Disposition - Patient still with temp -ct drainage pending LINNETTE BLUE Sep 29, 2018 13:39
[2018-09-29] MEDS: ACETAMINOPHEN 325 MG TAB PO PRN (14:13)
[2018-09-29 14:49] VITALS: BP 106/70; PULSE 81; RESP 19
--- NOTE | 2018-09-29 16:20 | CONS ---
Date/Time of Note Date/Time of Note DATE: 09/29/18 TIME: 16:19 Assessment/Plan Assessment/Plan Hospital Course No acute events overnight patient is awake looks comfortable he continues to spike fever with a T-max yesterday 101.1 this morning 100.2 WBC 4.1 platelets 293 no shift no bands BUN 14 creatinine 1.01 Microbiology: Blood and urine cultures since admission negative CT of the abdomen and pelvis done yesterday revealed 6.2 cm collection with multiple foci of air along the lower margin of the right hepatic lobe with limited evaluation in current study due to lack of IV contrast. This may represent post surgical changes versus a developing abscess. Antimicrobials: Patient is on IV vancomycin and Zosyn Physical examination: Well-developed middle-aged man who is awake in no distress. Head atraumatic normocephalic sclera nonicteric vehicle mucosa dry neck is supple chest rise symmetrical breath sounds diminished bases. Heart: S1-S2. Abdomen soft bowel sounds present extremities without cyanosis Assessment: 1. Ongoing fevers, possibly developing intra-abdominal abscess 2. Acute cholecystitis, status post lap eleazar 09/22/18 3. Choledocholithiasis, status post ERCP 4. Obesity 5. Questionable pneumonia Plan: CT findings noted, we will change Zosyn to meropenem, continue vancomyci n, follow surgical recommendations, patient may need IR drainage Result Diagram: 09/29/18 0455 09/29/18 0455 Results 24hrs Laboratory Tests Test 09/29/18 04:55 White Blood Count 4.1 L Red Blood Count 3.76 L Hemoglobin 11.9 L Hematocrit 35.3 L Mean Corpuscular Volume 93.9 Mean Corpuscular Hemoglobin 31.6 Mean Corpuscular Hemoglobin Concent 33.7 Red Cell Distribution Width 12.5 Platelet Count 293 Mean Platelet Volume 10.4 Immature Granulocytes % 1.500 H Neutrophils % 51.2 Lymphocytes % 38.7 Monocytes % 7.7 Eosinophils % 0.2 Basophils % 0.7 Nucleated Red Blood Cells % 0.0 Immature Granulocytes # 0.060 H Neutrophils # 2.1 Lymphocytes # 1.6 Monocytes # 0.3 Eosinophils # 0.0 Basophils # 0.0 Nucleated Red Blood Cells # 0.0 Sodium Level 139 Potassium Level 3.8 Chloride Level 103 Carbon Dioxide Level 25 Anion Gap 11 Blood Urea Nitrogen 14 Creatinine 1.01 Est Glomerular Filtrat Rate mL/min > 60 Glucose Level 114 Calcium Level 8.3 L Magnesium Level 2.1 Total Bilirubin 0.0 L Direct Bilirubin 0.00 Indirect Bilirubin 0.0 Aspartate Amino Transf (AST/SGOT) 50 H Alanine Aminotransferase (ALT/SGPT) 58 Alkaline Phosphatase 102 Total Protein 6.6 Albumin 3.4 Globulin 3.20 Albumin/Globulin Ratio 1.06 Lipase 186 Consultation Date/Type/Reason Admit Date/Time Sep 22, 2018 at 01:17 Initial Consult Date 09/23/18 Type of Consult id Requesting Provider: VAIBHAV SKINNER Exam/Review of Systems Vital Signs Vitals Vital Signs Date Temp Pulse Resp B/P (MAP) Pulse Ox O2 O2 Flow FiO2 Time Delivery Rate 09/29/18 99.2 81 19 106/70 94 Room Air 14:49 (82) Intake and Output 09/28/18 09/28/18 09/29/18 1515:00 23:00 07:00 IntakeIntake Total 200 ml 1325 ml OutputOutput Total 30 ml BalanceBalance -30 ml 200 ml 1325 ml Medications Medications Current Medications Morphine Sulfate (morphine SULFATE (PF)) 2 mg Q4H PRN IV moderate pain Last administered on 09/25/18at 03:03; Admin Dose 2 MG; Start 09/22/18 at 02:30 Morphine Sulfate (morphine) 4 mg Q4H PRN IV SEVERE PAIN LEVEL 7-10 Last administered on 09/23/18at 15:56; Admin Dose 4 MG; Start 09/22/18 at 02:30 Ondansetron HCl (Zofran Inj) 4 mg Q4 PRN IV NAUSEA AND/OR VOMITING Last admini stered on 09/22/18at 20:43; Admin Dose 4 MG; Start 09/22/18 at 02:30 IV Flush (NS 3 ml) 3 ml PER PROTOCOL IV ; Start 09/22/18 at 02:30 Acetaminophen (Tylenol Tab) 650 mg Q6H PRN PO PAIN LEVEL 1-3 OR FEVER Last administered on 09/29/18at 14:13; Admin Dose 650 MG; Start 09/22/18 at 02:30 Docusate Sodium (Colace) 100 mg Q12H PRN PO CONSTIPATION; Start 09/22/18 at 02:30 Bisacodyl (Dulcolax) 5 mg DAILY PRN PO CONSTIPATION; Start 09/22/18 at 02:30 Piperacillin Sod/ Tazobactam Sod 100 ml @ 200 mls/hr Q8 IVPB Last administered on 09/29/18at 13:24; Admin Dose 200 MLS/HR; Start 09/22/18 at 06:00 Heparin Sodium (Porcine) (Heparin (5000 Units/1ml)) 5,000 unit Q12 SC Last administered on 09/29/18at 09:17; Admin Dose 5,000 UNIT; Start 09/23/18 at 10:20 Naproxen (Naprosyn) 500 mg BID PRN PO PAIN LEVEL 1-3; Start 09/25/18 at 09:00 Sodium Chloride (Deep Sea) 2 spray BID NASAL Last administered on 09/29/18at 09:15; Admin Dose 2 SPRAY; Start 09/26/18 at 13:30 Phenol (Cepastat Lozenge) 1 lozenge Q1H PRN MT sore throat Last administered on 09/27/18at 20:26; Admin Dose 1 LOZENGE; Start 09/26/18 at 12:30 Benzonatate (Tessalon) 100 mg TID PRN PO cough Last administered on 09/29/18 11:15; Admin Dose 100 MG; Start 09/26/18 at 12:30 Sodium Chloride 1,000 ml @ 50 mls/hr Q20H IV Last administered on 09/29/18at 13:24; Admin Dose 50 MLS/HR; Start 09/28/18 at 17:30 Vancomycin HCl (Vanco Iv Per Pharmacy) VANCOMYCIN PER PHARMACY PER PROTOCOL XX ; Start 09/29/18 at 09:00 Vancomycin HCl 1.25 gm/Sodium Chloride 250 ml @ 83.333 mls/ hr Q12H IVPB ; Start 09/29/18 at 22:00 STEPHANIE BARRERA NP Sep 29, 2018 16:20
[2018-09-29 19:31] VITALS: BP 118/62; PULSE 88; RESP 18
[2018-09-29] MEDS: CEPASTAT LOZENGE MT PRN (20:27)
[2018-09-29] MEDS: MEROPENEM 1 GM/50ML(PMX) 50 ML IVPB SCH (21:26)
[2018-09-29] MEDS: VANCOMYCIN HCL 1.25 GM in SOD CHLORIDE 0.9% 250 ML IVPB SCH (22:14)
[2018-09-30 02:14] VITALS: BP 112/72; PULSE 86; RESP 19
[2018-09-30] MEDS: MEROPENEM 1 GM/50ML(PMX) 50 ML IVPB SCH ×3 (05:43→22:16)
[2018-09-30 07:55] VITALS: BP 99/61; PULSE 83; RESP 18
--- NOTE | 2018-09-30 08:33 | PN ---
Date/Time of Note Date/Time of Note DATE: 09/30/18 TIME: 08:30 Assessment/Plan Lines/Catheters IV Catheter Type (from [facility]): Peripheral IV Astorga in Place (from [facility]): No Assessment/Plan Chief Complaint/Hosp Course 1. Gallstone pancreatitis: Lipase normalized CT noted with pancreatitis; lipase normal 2. Symptomatic cholelithiasis, acute on chronic cholecystitis with porcelain gallbladder: Status post laparoscopic cholecystectomy 09/22/18; fevers, high than normal; CT abdomen: Fluid collection in the inferior border of right liver lobe (concern for abscess); ir drain cancelled 2/2 decreasing fluid size -IS -ambulate -ice pack to abdominal wall -advance diet as tolerated -Continue antibiotics> ok transition to po abx (total 2 weeks duration), anticipate dc home if 24h afebrile -Continue drain 3. Hyperbilirubinemia: No MR evidence of choledocholithiasis on prior scan; normalized and now elevated; concern for choledocholithiasis: Status post ERCP with noted choledocholithiasis; bilirubin normalized 4. Mild fatty liver: With minimally elevated ALT; status post liver wedge biopsy: macrovesicular steatosis; improving -Encourage weight loss 5. Bilateral inguinal hernias -Encourage weight loss -Eventual surgical repair 6. Leukocytosis: resolved 7. Diverticulosis without diverticulitis: -Lifestyle changes Thank you. Patient seen and examined in collaboration with Dr. Freddie Castro. Subjective 24 Hr Interval Summary No high fevers overnight. CT drain of fluid collection not performed 2/2 decreasing fluid size. No chills, sob, congested cough, cp, palpitations, barr, dizziness, n/v/d/dysuria. Exam/Review of Systems Vital Signs Vitals Vital Signs Date Temp Pulse Resp B/P (MAP) Pulse Ox O2 O2 Flow FiO2 Time Delivery Rate 09/30/18 99.2 83 18 99/61 (74) 95 07:55 09/29/18 Room Air 14:49 Intake and Output 09/29/18 09/29/18 09/30/18 1515:00 23:00 07:00 IntakeIntake Total 1000 ml 60 ml 725 ml OutputOutput Total 30 ml 30 ml BalanceBalance 970 ml 30 ml 725 ml Exam Free Text/Dictation Constitutional: alert, oriented Psych: nl mood/affect; No anxiety Head: normocephalic, atraumatic Eyes: nl conjunctiva, EOMI, nl sclera ENMT: nl external ears & nose, nl lips & teeth, mucosa pink and moist Neck: supple, non-tender; No jvd Respiratory: No congested cough, bilat LL: diminished Cardiovascular: regular rate and rhythm, nl pulses; No edema Gastrointestinal: soft, non-distended; non tender (tod-incisional: Incision sites dry without drainage/discoloration/bruising; DANNI with serous drainage) Musculoskeletal: nl extremities to inspection, nl gait and stance Extremities: normal pulses Neurological: nl mental status, nl speech, nl strength Skin: No rash or lesions Results Result Diagram: 09/30/18 0552 09/30/18 0552 RACHEL BOBBY NP Sep 30, 2018 08:33
[2018-09-30] MEDS: SALINE 0.65% 45 ML NAS SPRAY NASAL SCH ×2 (09:00→21:09)
[2018-09-30] MEDS ORDERED: FENTAnyl 50 MCG/ML VIAL ONE (09:01)
[2018-09-30] MEDS ORDERED: LIDOCAINE 1% (MPF) 5 ML VIAL ONE (09:01)
[2018-09-30] MEDS ORDERED: MIDAZOLAM 1 MG/ML 2 ML INJ ONE (09:01)
[2018-09-30] MEDS: SOD CHLORIDE 0.9% 1,000 ML IV SCH ×2 (09:30→18:47)
[2018-09-30] MEDS: HEPARIN 5,000 UNIT/1 ML VIAL SC SCH ×2 (10:12→21:10)
[2018-09-30] MEDS: BENZONATATE 100 MG CAP PO PRN ×2 (10:14→21:09)
[2018-09-30] MEDS: VANCOMYCIN HCL 1.25 GM in SOD CHLORIDE 0.9% 250 ML IVPB SCH ×2 (10:32→22:58)
--- NOTE | 2018-09-30 13:44 | CONS ---
Date/Time of Note Date/Time of Note DATE: 09/30/18 TIME: 13:43 Assessment/Plan Assessment/Plan Hospital Course No acute events patient is afebrile looks comfortable WBC 3.7 no shift no bands. Antimicrobials: Vancomycin meropenem Microbiology: Blood and urine cultures since admission negative CT of the abdomen and pelvis 09/28/18 revealed 6.2 cm collection with multiple foci of air along the lower margin of the right hepatic lobe with limited evaluation in current study due to lack of IV contrast. This may represent post surgical changes versus a developing abscess. Physical examination: Well-developed middle-aged man who is awake in no distress. Head atraumatic normocephalic sclera nonicteric vehicle mucosa dry neck is supple chest rise symmetrical breath sounds diminished bases. Heart: S1-S2. Abdomen soft bowel sounds present extremities without cyanosis Assessment: 1. Ongoing fevers 2 to intra-abdominal abscess 2. Acute cholecystitis, status post lap eleazar 09/22/18 3. Choledocholithiasis, status post ERCP 4. Obesity 5. Questionable pneumonia Plan: Patient is clinically stable repeat CT revealed fluid collection not enough for drainage with improvement in the size. Continue present care and antibiotics, follow surgical recommendations Result Diagram: 09/30/18 0552 09/30/18 0552 Results 24hrs Laboratory Tests Test 09/30/18 05:52 White Blood Count 3.7 L Red Blood Count 3.68 L Hemoglobin 11.6 L Hematocrit 34.5 L Mean Corpuscular Volume 93.8 Mean Corpuscular Hemoglobin 31.5 Mean Corpuscular Hemoglobin Concent 33.6 Red Cell Distribution Width 12.1 Platelet Count 293 Mean Platelet Volume 10.4 Immature Granulocytes % 0.500 H Neutrophils % 48.3 Lymphocytes % 44.5 Monocytes % 4.8 Eosinophils % 1.6 Basophils % 0.3 Nucleated Red Blood Cells % 0.0 Immature Granulocytes # 0.020 Neutrophils # 1.8 Lymphocytes # 1.7 Monocytes # 0.2 L Eosinophils # 0.1 Basophils # 0.0 Nucleated Red Blood Cells # 0.0 Sodium Level 142 Potassium Level 3.7 Chloride Level 107 Carbon Dioxide Level 22 Anion Gap 13 Blood Urea Nitrogen 9 Creatinine 0.69 Est Glomerular Filtrat Rate mL/min > 60 Glucose Level 105 Calcium Level 8.3 L Magnesium Level 1.8 Total Bilirubin 0.0 L Direct Bilirubin 0.00 Indirect Bilirubin 0.0 Aspartate Amino Transf (AST/SGOT) 36 Alanine Aminotransferase (ALT/SGPT) 50 Alkaline Phosphatase 80 Total Protein 6.5 Albumin 3.2 L Globulin 3.30 H Albumin/Globulin Ratio 0.96 Consultation Date/Type/Reason Admit Date/Time Sep 22, 2018 at 01:17 Initial Consult Date 09/23/18 Type of Consult id Requesting Provider: VAIBHAV SKINNER Exam/Review of Systems Vital Signs Vitals Vital Signs Date Temp Pulse Resp B/P (MAP) Pulse Ox O2 O2 Flow FiO2 Time Delivery Rate 09/30/18 99.2 83 18 99/61 (74) 95 07:55 09/29/18 Room Air 14:49 Intake and Output 09/29/18 09/29/18 09/30/18 1515:00 23:00 07:00 IntakeIntake Total 1000 ml 60 ml 725 ml OutputOutput Total 30 ml 30 ml BalanceBalance 970 ml 30 ml 725 ml Medications Medications Current Medications Morphine Sulfate (morphine SULFATE (PF)) 2 mg Q4H PRN IV moderate pain Last administered on 09/25/18at 03:03; Admin Dose 2 MG; Start 09/22/18 at 02:30 Morphine Sulfate (morphine) 4 mg Q4H PRN IV SEVERE PAIN LEVEL 7-10 Last administered on 09/23/18at 15:56; Admin Dose 4 MG; Start 09/22/18 at 02:30 Ondansetron HCl (Zofran Inj) 4 mg Q4 PRN IV NAUSEA AND/OR VOMITING Last administered on 09/22/18at 20:43; Admin Dose 4 MG; Start 09/22/18 at 02:30 IV Flush (NS 3 ml) 3 ml PER PROTOCOL IV ; Start 09/22/18 at 02:30 Acetaminophen (Tylenol Tab) 650 mg Q6H PRN PO PAIN LEVEL 1-3 OR FEVER Last administered on 09/29/18at 14:13; Admin Dose 650 MG; Start 09/22/18 at 02:30 Docusate Sodium (Colace) 100 mg Q12H PRN PO CONSTIPATION; Start 09/22/18 at 02:30 Bisacodyl (Dulcolax) 5 mg DAILY PRN PO CONSTIPATION; Start 09/22/18 at 02:30 Heparin Sodium (Porcine) (Heparin (5000 Units/1ml)) 5,000 unit Q12 SC Last administered on 09/30/18 10:12; Admin Dose 5,000 UNIT; Start 09/23/18 at 10:20 Naproxen (Naprosyn) 500 mg BID PRN PO PAIN LEVEL 1-3; Start 09/25/18 at 09:00 Sodium Chloride (Deep Sea) 2 spray BID NASAL Last administered on 09/30/18 09:00; Admin Dose 2 SPRAY; Start 09/26/18 at 13:30 Phenol (Cepastat Lozenge) 1 lozenge Q1H PRN MT sore throat Last administered on 09/29/18 20:27; Admin Dose 1 LOZENGE; Start 09/26/18 at 12:30 Benzonatate (Tessalon) 100 mg TID PRN PO cough Last administered on 09/30/18 10:14; Admin Dose 100 MG; Start 09/26/18 at 12:30 Sodium Chloride 1,000 ml @ 50 mls/hr Q20H IV Last administered on 09/29/18 13:24; Admin Dose 50 MLS/HR; Start 09/28/18 at 17:30 Vancomycin HCl (Vanco Iv Per Pharmacy) VANCOMYCIN PER PHARMACY PER PROTOCOL XX ; Start 09/29/18 at 09:00 Vancomycin HCl 1.25 gm/Sodium Chloride 250 ml @ 83.333 mls/ hr Q12H IVPB Last administered on 09/30/18 10:32; Admin Dose 83.333 MLS/HR; Start 09/29/18 at 22:00 Meropenem/Sodium Chloride 50 ml @ 100 mls/hr Q8 IVPB Last administered on 09/30/18at 05:43; Admin Dose 100 MLS/HR; Start 09/29/18 at 22:00 STEPHANIE BARRERA NP Sep 30, 2018 13:44
[2018-09-30 14:29] VITALS: BP 100/57; PULSE 83; RESP 16
--- NOTE | 2018-09-30 16:10 | PN ---
Date/Time of Note Date/Time of Note DATE: 09/30/18 TIME: 16:09 Objective Vitals Vital Signs Date Temp Pulse Resp B/P (MAP) Pulse Ox O2 O2 Flow FiO2 Time Delivery Rate 09/30/18 98.3 83 16 100/57 95 14:29 (71) 09/29/18 Room Air 14:49 Intake and Output 09/29/18 09/29/18 09/30/18 1515:00 23:00 07:00 IntakeIntake Total 1000 ml 60 ml 725 ml OutputOutput Total 30 ml 30 ml BalanceBalance 970 ml 30 ml 725 ml Results Result Diagram: 09/30/18 0552 09/30/1852 Medications Medications Current Medications Morphine Sulfate (morphine SULFATE (PF)) 2 mg Q4H PRN IV moderate pain Last administered on 09/25/18at 03:03; Admin Dose 2 MG; Start 09/22/18 at 02:30 Morphine Sulfate (morphine) 4 mg Q4H PRN IV SEVERE PAIN LEVEL 7-10 Last administered on 09/23/18at 15:56; Admin Dose 4 MG; Start 09/22/18 at 02:30 Ondansetron HCl (Zofran Inj) 4 mg Q4 PRN IV NAUSEA AND/OR VOMITING Last administered on 09/22/18at 20:43; Admin Dose 4 MG; Start 09/22/18 at 02:30 IV Flush (NS 3 ml) 3 ml PER PROTOCOL IV ; Start 09/22/18 at 02:30 Acetaminophen (Tylenol Tab) 650 mg Q6H PRN PO PAIN LEVEL 1-3 OR FEVER Last administered on 09/29/18at 14:13; Admin Dose 650 MG; Start 09/22/18 at 02:30 Docusate Sodium (Colace) 100 mg Q12H PRN PO CONSTIPATION; Start 09/22/18 at 02:30 Bisacodyl (Dulcolax) 5 mg DAILY PRN PO CONSTIPATION; Start 09/22/18 at 02:30 Heparin Sodium (Porcine) (Heparin (5000 Units/1ml)) 5,000 unit Q12 SC Last administered on 09/30/18at 10:12; Admin Dose 5,000 UNIT; Start 09/23/18 at 10:20 Naproxen (Naprosyn) 500 mg BID PRN PO PAIN LEVEL 1-3; Start 09/25/18 at 09:00 Sodium Chloride (Deep Sea) 2 spray BID NASAL Last administered on 09/30/18 09:00; Admin Dose 2 SPRAY; Start 09/26/18 at 13:30 Phenol (Cepastat Lozenge) 1 lozenge Q1H PRN MT sore throat Last administered on 09/29/18 20:27; Admin Dose 1 LOZENGE; Start 09/26/18 at 12:30 Benzonatate (Tessalon) 100 mg TID PRN PO cough Last administered on 09/30/18 10:14; Admin Dose 100 MG; Start 09/26/18 at 12:30 Sodium Chloride 1,000 ml @ 50 mls/hr Q20H IV Last administered on 09/29/18 13:24; Admin Dose 50 MLS/HR; Start 09/28/18 at 17:30 Vancomycin HCl (Vanco Iv Per Pharmacy) VANCOMYCIN PER PHARMACY PER PROTOCOL XX ; Start 09/29/18 at 09:00 Vancomycin HCl 1.25 gm/Sodium Chloride 250 ml @ 83.333 mls/ hr Q12H IVPB Last administered on 09/30/18 10:32; Admin Dose 83.333 MLS/HR; Start 09/29/18 at 22:00 Meropenem/Sodium Chloride 50 ml @ 100 mls/hr Q8 IVPB Last administered on 09/30/18 14:27; Admin Dose 100 MLS/HR; Start 09/29/18 at 22:00 VTE Prophylaxis Risk score (from Ns)>0 risk: 2 SCD applied (from Ns): Yes Lines/Catheters IV Catheter Type: Astorg[place] in Place: No Assessment/Plan Hospital Course Subjective still fever overnight, minimal to no ab pain Objective Physical exam General: Patient is laying in bed and answers questions appropriately Mentation: Patient is alert and oriented 4, Head: Normocephalic atraumatic Eyes: EOMI, pupils reactive to light Neck: Supple, nontender, midline Respiratory: Clear to auscultation bilaterally Cardiovascular: regular rate, no obvious murmurs Gastrointestinal: Minimally tender to palpation, bowel sounds heard. Neurological: Moves all extremities spontaneously Skin: No new skin lesions Assessment/Plan Abscess/fluid collection? 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 - No complications during surgery but did need emergent ERCP for choledocholithiasis Choledocholithiasis s/p ERCP - GI on board and appreciate recommendations. ERCP performed 09/23 and tolerated well - LFTs normalized and tolerating PO diet - Will continue advancing diet as tolerated sepsis -ID consulted -blood cultures pending -cont IV abx -CT ab and HIDA done. ? abscess vs post surgical changes, defer to gen surg, possible abscess Obesity - diet modification counseling offered Dry cough- resolved - most likely associated with post nasal drip - will start nasal saline and cough drops Disposition - Patient still with temp -ID and gen surg recs LINNETTE BLUE Sep 30, 2018 16:10
[2018-09-30 20:00] VITALS: BP 109/58; PULSE 99; RESP 18
[2018-10-01 01:41] VITALS: BP 105/51; PULSE 83; RESP 18
[2018-10-01] MEDS: MEROPENEM 1 GM/50ML(PMX) 50 ML IVPB SCH ×3 (05:54→21:37)
[2018-10-01 08:30] VITALS: BP 100/64; PULSE 82; RESP 18
[2018-10-01] MEDS: HEPARIN 5,000 UNIT/1 ML VIAL SC SCH ×2 (09:11→20:59)
[2018-10-01] MEDS: SALINE 0.65% 45 ML NAS SPRAY NASAL SCH ×2 (09:11→20:59)
--- NOTE | 2018-10-01 10:42 | PN ---
Date/Time of Note Date/Time of Note DATE: 10/01/18 TIME: 10:33 Assessment/Plan Lines/Catheters IV Catheter Type (from [facility]): Peripheral IV [place] in Place (from [facility]): No Assessment/Plan Chief Complaint/Hosp Course 1. Gallstone pancreatitis: Lipase normalized CT noted with pancreatitis; lipase normal 2. 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 Patient to follow up in office in 1 week 3. Hyperbilirubinemia: No MR evidence of choledocholithiasis on prior scan; normalized and now elevated; concern for choledocholithiasis: Status post ERCP with noted choledocholithiasis; bilirubin normalized 4. Mild fatty liver: With minimally elevated ALT; status post liver wedge biopsy: macrovesicular steatosis; improving -Encourage weight loss 5. Bilateral inguinal hernias -Encourage weight loss -Eventual surgical repair 6. Leukocytosis: resolved 7. Diverticulosis without diverticulitis: -Lifestyle changes Thank you. Patient seen and examined in collaboration with Dr. Freddie Castro. Subjective 24 Hr Interval Summary Feels well. No fevers, chills, sob, congested cough, cp, palpitations, barr, dizziness, n/v/d/dysuria. Mod drainage from drain. Exam/Review of Systems Vital Signs Vitals Vital Signs Date Temp Pulse Resp B/P (MAP) Pulse Ox O2 O2 Flow FiO2 Time Delivery Rate 10/01/18 98.8 82 18 100/64 95 Room Air 08:30 (76) Intake and Output 09/30/18 09/30/18 10/01/18 1515:00 23:00 07:00 IntakeIntake Total 300 ml 1515 ml 1150 ml OutputOutput Total 30 ml 40 ml 30 ml BalanceBalance 270 ml 1475 ml 1120 ml Exam Free Text/Dictation Constitutional: alert, oriented Psych: nl mood/affect; No anxiety Head: normocephalic, atraumatic Eyes: nl conjunctiva, EOMI, nl sclera ENMT: nl external ears & nose, nl lips & teeth, mucosa pink and moist Neck: supple, non-tender; No jvd Respiratory: No congested cough, bilat LL: diminished Cardiovascular: regular rate and rhythm, nl pulses; No edema Gastrointestinal: soft, non-distended; non tender (tod-incisional: Incision sites dry without drainage/discoloration/bruising; DANNI with serous drainage) Musculoskeletal: nl extremities to inspection, nl gait and stance Extremities: normal pulses Neurological: nl mental status, nl speech, nl strength Skin: No rash or lesions Results Result Diagram: 10/01/1891810/01/18918 RACHEL BOBBY NP Oct 01, 2018 10:42
[2018-10-01] MEDS: VANCOMYCIN HCL 1.25 GM in SOD CHLORIDE 0.9% 250 ML IVPB SCH (10:55)
[2018-10-01] MEDS: BENZONATATE 100 MG CAP PO PRN ×2 (10:59→21:37)
[2018-10-01] MEDS ORDERED: LIDOCAINE 1% (MPF) 5 ML VIAL SC ONE (14:00)
--- NOTE | 2018-10-01 14:05 | PN ---
Date/Time of Note Date/Time of Note DATE: 10/01/18 TIME: 13:56 Objective Vitals Vital Signs Date Temp Pulse Resp B/P (MAP) Pulse Ox O2 O2 Flow FiO2 Time Delivery Rate 10/01/18 98.8 82 18 100/64 95 Room Air 08:30 (76) Intake and Output 09/30/18 09/30/18 10/01/18 1414:59 22:59 06:59 IntakeIntake Total 300 ml 1515 ml 1150 ml OutputOutput Total 30 ml 40 ml 30 ml BalanceBalance 270 ml 1475 ml 1120 ml Results Result Diagram: 10/01/1891810/01/18918 Medications Medications Current Medications Morphine Sulfate (morphine SULFATE (PF)) 2 mg Q4H PRN IV moderate pain Last administered on 09/25/18at 03:03; Admin Dose 2 MG; Start 09/22/18 at 02:30 Morphine Sulfate (morphine) 4 mg Q4H PRN IV SEVERE PAIN LEVEL 7-10 Last administered on 09/23/18at 15:56; Admin Dose 4 MG; Start 09/22/18 at 02:30 Ondansetron HCl (Zofran Inj) 4 mg Q4 PRN IV NAUSEA AND/OR VOMITING Last administered on 09/22/18at 20:43; Admin Dose 4 MG; Start 09/22/18 at 02:30 IV Flush (NS 3 ml) 3 ml PER PROTOCOL IV ; Start 09/22/18 at 02:30 Acetaminophen (Tylenol Tab) 650 mg Q6H PRN PO PAIN LEVEL 1-3 OR FEVER Last administered on 09/29/18at 14:13; Admin Dose 650 MG; Start 09/22/18 at 02:30 Docusate Sodium (Colace) 100 mg Q12H PRN PO CONSTIPATION; Start 09/22/18 at 02:30 Bisacodyl (Dulcolax) 5 mg DAILY PRN PO CONSTIPATION; Start 09/22/18 at 02:30 Heparin Sodium (Porcine) (Heparin (5000 Units/1ml)) 5,000 unit Q12 SC Last administered on 10/01/18at 09:11; Admin Dose 5,000 UNIT; Start 09/23/18 at 10:20 Naproxen (Naprosyn) 500 mg BID PRN PO PAIN LEVEL 1-3; Start 09/25/18 at 09:00 Sodium Chloride (Deep Sea) 2 spray BID NASAL Last administered on 10/01/18at 09:11; Admin Dose 2 SPRAY; Start 09/26/18 at 13:30 Phenol (Cepastat Lozenge) 1 lozenge Q1H PRN MT sore throat Last administered on 09/29/18at 20:27; Admin Dose 1 LOZENGE; Start 09/26/18 at 12:30 Benzonatate (Tessalon) 100 mg TID PRN PO cough Last administered on 10/01/18at 10:59; Admin Dose 100 MG; Start 09/26/18 at 12:30 Sodium Chloride 1,000 ml @ 50 mls/hr Q20H IV Last administered on 09/30/18at 18:47; Admin Dose 50 MLS/HR; Start 09/28/18 at 17:30 Vancomycin HCl (Vanco Iv Per Pharmacy) VANCOMYCIN PER PHARMACY PER PROTOCOL XX ; Start 09/29/18 at 09:00 Vancomycin HCl 1.25 gm/Sodium Chloride 250 ml @ 83.333 mls/ hr Q12H IVPB Last administered on 10/01/18at 10:55; Admin Dose 83.333 MLS/HR; Start 09/29/18 at 22:00; Stop 10/01/18 at 14:00 Meropenem/Sodium Chloride 50 ml @ 100 mls/hr Q8 IVPB Last administered on 10/01/18at 05:54; Admin Dose 100 MLS/HR; Start 09/29/18 at 22:00 Vancomycin HCl 1.5 gm/Sodium Chloride 250 ml @ 83.333 mls/ hr Q12H IVPB ; Start 10/01/18 at 22:00 Lidocaine (Xylocaine 1% (Mpf)) 5 ml ONCE ONCE SC ; Start 10/01/18 at 14:00; Stop 10/01/18 at 14:01 VTE Prophylaxis Risk score (from Nsg)>0 risk: 2 SCD applied (from Nsg): Yes Lines/Catheters IV Catheter Type: [place] in Place: No Assessment/Plan Hospital Course Subjective no more fever Objective Physical exam General: Patient is laying in bed and answers questions appropriately Mentation: Patient is alert and oriented 4, Head: Normocephalic atraumatic Eyes: EOMI, pupils reactive to light Neck: Supple, nontender, midline Respiratory: Clear to auscultation bilaterally Cardiovascular: regular rate, no obvious murmurs Gastrointestinal: Minimally tender to palpation, bowel sounds heard. Neurological: Moves all extremities spontaneously Skin: No new skin lesions Assessment/Plan Abscess/fluid collection? 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 - No complications during surgery but did need emergent ERCP for choledocholithiasis Choledocholithiasis s/p ERCP - GI on board and appreciate recommendations. ERCP performed 09/23 and tolerated well - LFTs normalized and tolerating PO diet - Will continue advancing diet as tolerated sepsis -ID consulted -blood cultures neg -cont IV abx -CT ab and HIDA done. ? abscess vs post surgical changes, defer to gen surg, possible abscess Obesity - diet modification counseling offered Dry cough- resolved - most likely associated with post nasal drip - will start nasal saline and cough drops Disposition -Infectious disease wants patient on IV antibiotics, Merrem and vancomycin for at least 1 week to follow-up with Dr. Castro within 1 week. LINNETTE BLUE Oct 01, 2018 14:05
--- NOTE | 2018-10-01 14:11 | CONS ---
Date/Time of Note Date/Time of Note DATE: 10/01/18 TIME: 14:05 Assessment/Plan Assessment/Plan Hospital Course No acute events patient is alert, feels good, no fevers Antimicrobials: Vancomycin, meropenem Microbiology: Blood and urine cultures since admission negative CT of the abdomen and pelvis 09/28/18 revealed 6.2 cm collection with multiple foci of air along the lower margin of the right hepatic lobe with limited evaluation in current study due to lack of IV contrast. This may represent post surgical changes versus a developing abscess. Physical examination: Well-developed middle-aged man who is awake in no distress. Head atraumatic normocephalic sclera nonicteric vehicle mucosa dry neck is supple chest rise symmetrical breath sounds diminished bases. Heart: S1-S2. Abdomen soft bowel sounds present extremities without cyanosis Assessment: 1. S/p fevers 2 to intra-abdominal abscess 2. Acute cholecystitis, status post lap eleazar 09/22/18 3. Choledocholithiasis, status post ERCP 4. Obesity Plan: Doing better, cleared for dc by surgery, ok dc on current abx for 10 more days, pt to follow with Dr Castro in a week for further rec-s Result Diagram: 10/01/18 0919 10/01/18 0919 Results 24hrs Laboratory Tests Test 10/01/18 09:19 White Blood Count 4.3 L Red Blood Count 3.90 L Hemoglobin 12.2 L Hematocrit 36.1 L Mean Corpuscular Volume 92.6 Mean Corpuscular Hemoglobin 31.3 Mean Corpuscular Hemoglobin Concent 33.8 Red Cell Distribution Width 12.2 Platelet Count 295 Mean Platelet Volume 9.8 Immature Granulocytes % 0.200 Neutrophils % 48.8 Lymphocytes % 44.3 Monocytes % 5.8 Eosinophils % 0.7 Basophils % 0.2 Nucleated Red Blood Cells % 0.0 Immature Granulocytes # 0.010 Neutrophils # 2.1 Lymphocytes # 1.9 Monocytes # 0.3 Eosinophils # 0.0 Basophils # 0.0 Nucleated Red Blood Cells # 0.0 Sodium Level 139 Potassium Level 3.9 Chloride Level 106 Carbon Dioxide Level 24 Anion Gap 9 Blood Urea Nitrogen 8 Creatinine 0.68 Est Glomerular Filtrat Rate mL/min > 60 Glucose Level 113 Calcium Level 9.0 Phosphorus Level 3.4 Magnesium Level 1.8 Vancomycin Level Trough 8.8 L Consultation Date/Type/Reason Admit Date/Time Sep 22, 2018 at 01:17 Initial Consult Date 09/23/18 Type of Consult id Requesting Provider: VAIBHAV SKINNER Exam/Review of Systems Vital Signs Vitals Vital Signs Date Temp Pulse Resp B/P (MAP) Pulse Ox O2 O2 Flow FiO2 Time Delivery Rate 10/01/18 98.8 82 18 100/64 95 Room Air 08:30 (76) Intake and Output 09/30/18 09/30/18 10/01/18 1515:00 23:00 07:00 IntakeIntake Total 300 ml 1515 ml 1150 ml OutputOutput Total 30 ml 40 ml 30 ml BalanceBalance 270 ml 1475 ml 1120 ml Medications Medications Current Medications Morphine Sulfate (morphine SULFATE (PF)) 2 mg Q4H PRN IV moderate pain Last administered on 09/25/18at 03:03; Admin Dose 2 MG; Start 09/22/18 at 02:30 Morphine Sulfate (morphine) 4 mg Q4H PRN IV SEVERE PAIN LEVEL 7-10 Last administered on 09/23/18at 15:56; Admin Dose 4 MG; Start 09/22/18 at 02:30 Ondansetron HCl (Zofran Inj) 4 mg Q4 PRN IV NAUSEA AND/OR VOMITING Last administered on 09/22/18at 20:43; Admin Dose 4 MG; Start 09/22/18 at 02:30 IV Flush (NS 3 ml) 3 ml PER PROTOCOL IV ; Start 09/22/18 at 02:30 Acetaminophen (Tylenol Tab) 650 mg Q6H PRN PO PAIN LEVEL 1-3 OR FEVER Last administered on 09/29/18at 14:13; Admin Dose 650 MG; Start 09/22/18 at 02:30 Docusate Sodium (Colace) 100 mg Q12H PRN PO CONSTIPATION; Start 09/22/18 at 02:30 Bisacodyl (Dulcolax) 5 mg DAILY PRN PO CONSTIPATION; Start 09/22/18 at 02:30 Heparin Sodium (Porcine) (Heparin (5000 Units/1ml)) 5,000 unit Q12 SC Last administered on 10/01/18at 09:11; Admin Dose 5,000 UNIT; Start 09/23/18 at 10:20 Naproxen (Naprosyn) 500 mg BID PRN PO PAIN LEVEL 1-3; Start 09/25/18 at 09:00 Sodium Chloride (Deep Sea) 2 spray BID NASAL Last administered on 10/01/18at 09:11; Admin Dose 2 SPRAY; Start 09/26/18 at 13:30 Phenol (Cepastat Lozenge) 1 lozenge Q1H PRN MT sore throat Last administered on 09/29/18at 20:27; Admin Dose 1 LOZENGE; Start 09/26/18 at 12:30 Benzonatate (Tessalon) 100 mg TID PRN PO cough Last administered on 10/01/18at 10:59; Admin Dose 100 MG; Start 09/26/18 at 12:30 Sodium Chloride 1,000 ml @ 50 mls/hr Q20H IV Last administered on 09/30/18at 18:47; Admin Dose 50 MLS/HR; Start 09/28/18 at 17:30 Vancomycin HCl (Vanco Iv Per Pharmacy) VANCOMYCIN PER PHARMACY PER PROTOCOL XX ; Start 09/29/18 at 09:00 Meropenem/Sodium Chloride 50 ml @ 100 mls/hr Q8 IVPB Last administered on 10/01/18at 05:54; Admin Dose 100 MLS/HR; Start 09/29/18 at 22:00 Vancomycin HCl 1.5 gm/Sodium Chloride 250 ml @ 83.333 mls/ hr Q12H IVPB ; Start 10/01/18 at 22:00 STEPHANIE BARRERA NP Oct 01, 2018 14:11
[2018-10-01 14:30] VITALS: BP 109/69; PULSE 79; RESP 18
[2018-10-01 20:00] VITALS: BP 117/74; PULSE 82; RESP 18
[2018-10-01] MEDS: VANCOMYCIN HCL 1.5 GM in SOD CHLORIDE 0.9% 250 ML IVPB SCH (22:44)
[2018-10-02] MEDS: SOD CHLORIDE 0.9% 1,000 ML IV SCH ×2 (01:30→06:35)
[2018-10-02 02:00] VITALS: BP 104/58; PULSE 77; RESP 18
[2018-10-02] MEDS: MEROPENEM 1 GM/50ML(PMX) 50 ML IVPB SCH ×2 (05:48→14:36)
[2018-10-02 08:11] VITALS: BP 129/77; PULSE 78; RESP 18
[2018-10-02] MEDS: SALINE 0.65% 45 ML NAS SPRAY NASAL SCH (08:32)
[2018-10-02] MEDS: HEPARIN 5,000 UNIT/1 ML VIAL SC SCH (08:32)
--- NOTE | 2018-10-02 09:32 | PN ---
Date/Time of Note Date/Time of Note DATE: 10/02/18 TIME: 09:30 Assessment/Plan Lines/Catheters IV Catheter Type (from [facility]): Peripheral IV [place] in Place (from [facility]): No Assessment/Plan Chief Complaint/Hosp Course 1. Gallstone pancreatitis: Lipase normalized CT noted with pancreatitis; lipase normal 2. 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 P atient to follow up in office in 1 week 3. Hyperbilirubinemia: No MR evidence of choledocholithiasis on prior scan; normalized and now elevated; concern for choledocholithiasis: Status post ERCP with noted choledocholithiasis; bilirubin normalized 4. Mild fatty liver: With minimally elevated ALT; status post liver wedge biopsy: macrovesicular steatosis; improving -Encourage weight loss 5. Bilateral inguinal hernias -Encourage weight loss -Eventual surgical repair 6. Fevers: resolved 7. Diverticulosis without diverticulitis: -Lifestyle changes Thank you. Patient seen and examined in collaboration with Dr. Freddie Castro. Subjective 24 Hr Interval Summary Feels well. No fevers, chills, sob, congested cough, cp, palpitations, barr, dizziness, n/v/d/dysuria. Exam/Review of Systems Vital Signs Vitals Vital Signs Date Temp Pulse Resp B/P (MAP) Pulse Ox O2 O2 Flow FiO2 Time Delivery Rate 10/02/18 97.9 78 18 129/77 93 08:11 (94) 10/01/18 Room Air 14:30 Intake and Output 10/01/18 10/01/18 10/02/18 1515:00 23:00 07:00 IntakeIntake Total 1070 ml 510 ml 1150 ml OutputOutput Total 320 ml 20 ml 20 ml BalanceBalance 750 ml 490 ml 1130 ml Exam Free Text/Dictation Constitutional: alert, oriented Psych: nl mood/affect; No anxiety Head: normocephalic, atraumatic Eyes: nl conjunctiva, EOMI, nl sclera ENMT: nl external ears & nose, nl lips & teeth, mucosa pink and moist Neck: supple, non-tender; No jvd Respiratory: No congested cough, bilat LL: diminished Cardiovascular: regular rate and rhythm, nl pulses; No edema Gastrointestinal: soft, non-distended; non tender (tod-incisional: Incision sites dry without drainage/discoloration/bruising; DANNI with serous drainage) Musculoskeletal: nl extremities to inspection, nl gait and stance Extremities: normal pulses Neurological: nl mental status, nl speech, nl strength Skin: No rash or lesions Results Result Diagram: 10/02/189 10/02/18 0439 RACHEL BOBBY NP Oct 02, 2018 09:32
[2018-10-02] MEDS: VANCOMYCIN HCL 1.5 GM in SOD CHLORIDE 0.9% 250 ML IVPB SCH (09:55)
[2018-10-02] MEDS ORDERED: BENZ-5 PO (11:00)
--- NOTE | 2018-10-02 11:05 | PDOCDIS ---
Discharge Instructions CONDITION [id number] Patient Condition: [id number] Stable HOME CARE INSTRUCTIONS: [id number] Special Diet: [id number] Regular Diet FOLLOW UP/APPOINTMENTS Follow-up Plan 1. Please follow-up with Dr. Castro, general surgery within 1 week in order to reassess for continued antibiotics as well as removal of drain. 2. Please follow-up with gastroenterology or another GI specialist, Dr. Nelson, in order to follow-up for other GI issues 3. Please follow instructions of antibiotic nurse in order to get IV antibiotics at home for 1 week 4. Please follow-up with your primary doctor as soon as possible. In order to reassess your recent surgery with removal of your gallbladder as well as ERCP. LINNETTE BLUE Oct 02, 2018 11:05
--- NOTE | 2018-10-02 11:11 | DS ---
Date/Time of Note Date/Time of Note DATE: 10/02/18 TIME: 11:11 Discharge Summary Admission/Discharge Info Admit Date/Time Sep 22, 2018 at 01:17 Discharge Date/Time Patient Condition: Stable Hospital Course Patient is a male with no significant past medical history who originally presented to [facility] as a transfer. Patient was originally diagnosed with gallstone pancreatitis at other facility however when he got here there is no signs of acute pancreatitis. However there was signs of choledocholithiasis and symptomatic cholelithiasis. Patient was seen by both GI and general surgery and eventually received laparoscopic cholecystectomy as well as ERCP. Laparoscopic cholecystectomy resulted in drain placement and ERCP resulted in sphincterotomy as well as stone removal. Patient did well however developed fevers status post procedures and infectious disease was involved as well. Patient received multiple scans and there was a questionable abscess or another fluid collection on CT however it appears to have spontaneously resolved when drainage was attempted. Patient responded very well to antibiotics and had complete resolution of abdominal pain. At this time general surgery and infectious disease have cleared patient to go home, patient feels well however will be sent home with at least 1 week of the current IV antibiotics of Merrem and vancomycin. Patient will follow up with general surgery as soon as possible within 1 week in order to determine if he needs to continue the IV antibiotics and for drain removal. 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 status post lap eleazar Choledocholithiasis status post ERCP Sepsis, resolved Obesity Dry cough Questionable abscess or fluid collection, resolving Home Meds Active Scripts Benzonatate* (Benzonatate*) 100 Mg Capsule, 100 MG PO TID PRN for cough for 5 Days, #15 CAP Prov:LINNETTE BLUE 10/02/18 Discontinued Reported Medications Morphine (Morphine) 2 Mg/1 Ml Disp.syrin, 2 MG IV Q4H PRN for moderate pain, EA 09/22/18 Morphine Sulfate* (Morphine*) 4 Mg/1 Ml Cartridge, 4 MG IV Q4H PRN for SEVERE PAIN LEVEL 7-10, SYR 09/22/18 Heparin Sodium,Porcine/Pf (HEPARIN SOD 5,000 UNIT/ 0.5 ML) 5,000 Unit/0.5 Ml Vial, 5000 UNIT IJ Q12, VIAL 09/22/18 Potassium Chloride/D5-0.45NACL (KCl 20 Meq in D5w-0.45% NaCl) 20 Meq/1000 Ml Iv.soln, 20 MEQ IV q10 100 ml/hr 09/22/18 Acetaminophen* (Acetaminophen*) 650 Mg Tablet, 650 MG PO Q6H PRN for PAIN AND OR ELEVATED TEMP, #30 TAB 09/22/18 Ondansetron Hcl* (Ondansetron Hcl* Inj) 4 Mg/2 Ml Ampul, 4 MG IV Q4 PRN for NAUSEA AND/OR VOMITING, AMP 09/22/18 Ruqnsfwmegox-Bumc-Ayofaspl,Iso (ZOSYN 3.375 GM GALAXY BAG) 3.375 Gm/50 Ml Froz.piggy, 3.375 GM IVPB Q8, EA 09/22/18 Follow-up Plan 1. Please follow-up with Dr. Castro, general surgery within 1 week in order to reassess for continued antibiotics as well as removal of drain. 2. Please follow-up with gastroenterology or another GI specialist, Dr. Nelson, in order to follow-up for other GI issues 3. Please follow instructions of antibiotic nurse in order to get IV antibiotics at home for 1 week 4. Please follow-up with your primary doctor as soon as possible. In order to reassess your recent surgery with removal of your gallbladder as well as ERCP. Primary Care Provider Care Physician No Primary Time spent on discharge: > 30 minutes Pending Labs Laboratory Tests Test 10/02/18 04:39 White Blood Count 4.4 10^3/ul (4.8-10.8) Red Blood Count 3.60 10^6/ul (4.70-6.10) Hemoglobin 11.3 g/dl (14.0-18.0) Hematocrit 33.5 % (42.0-52.0) Mean Corpuscular Volume 93.1 fl (82.0-101.0) Mean Corpuscular Hemoglobin 31.4 pg (29.0-33.0) Mean Corpuscular Hemoglobin Concent 33.7 g/dl (32.0-37.0) Red Cell Distribution Width 11.9 % (11.5-14.5) Platelet Count 275 10^3/UL (140-415) Mean Platelet Volume 10.4 fl (7.4-10.4) Immature Granulocytes % 0.200 % (0.001-0.429) Neutrophils % 45.4 % (39.0-77.0) Lymphocytes % 46.9 % (15.0-51.0) Monocytes % 5.5 % (0.0-11.0) Eosinophils % 1.8 % (0.0-7.0) Basophils % 0.2 % (0.0-2.0) Nucleated Red Blood Cells % 0.0 /100WBC (0.0-0.0) Immature Granulocytes # 0.010 10^3/ul (0.0-0.031) Neutrophils # 2.0 10^3/ul (1.6-7.5) Lymphocytes # 2.1 10^3/ul (0.8-2.9) Monocytes # 0.2 10^3/ul (0.3-0.9) Eosinophils # 0.1 10^3/ul (0.0-0.5) Basophils # 0.0 10^3/ul (0.0-0.1) Nucleated Red Blood Cells # 0.0 10^3/ul (0.0-0.0) Sodium Level 139 mmol/L (135-144) Potassium Level 3.8 mmol/L (3.5-5.1) Chloride Level 104 mmol/L (97-110) Carbon Dioxide Level 25 mmol/L (21-31) Anion Gap 10 (5-13) Blood Urea Nitrogen 8 mg/dl (7-20) Creatinine 0.58 mg/dl (0.61-1.24) Est Glomerular Filtrat Rate mL/min > 60 mL/min (>60) Glucose Level 107 mg/dl (70-220) Calcium Level 8.8 mg/dl (8.4-10.2) Phosphorus Level 3.2 mg/dl (2.5-4.9) Magnesium Level 1.7 mg/dl (1.7-2.5) LINNETTE BLUE Oct 02, 2018 11:11
[2018-10-02 14:23] VITALS: BP 116/77; PULSE 78; RESP 18
[2018-10-02] MEDS: BENZONATATE 100 MG CAP PO PRN (14:36)
--- NOTE | 2018-10-02 14:54 | CONS ---
Date/Time of Note Date/Time of Note DATE: 10/02/18 TIME: 14:53 Assessment/Plan Assessment/Plan Hospital Course No acute events patient is alert, feels good, no fevers Antimicrobials: Vancomycin, meropenem Microbiology: Blood and urine cultures since admission negative CT of the abdomen and pelvis 09/28/18 revealed 6.2 cm collection with multiple foci of air along the lower margin of the right hepatic lobe with limited evaluation in current study due to lack of IV contrast. This may represent post surgical changes versus a developing abscess. Physical examination: Well-developed middle-aged man who is awake in no distress. Head atraumatic normocephalic sclera nonicteric vehicle mucosa dry neck is supple chest rise symmetrical breath sounds diminished bases. Heart: S1-S2. Abdomen soft bowel sounds present extremities without cyanosis Assessment: 1. S/p fevers 2 to intra-abdominal abscess 2. Acute cholecystitis, status post lap eleazar 09/22/18 3. Choledocholithiasis, status post ERCP 4. Obesity Plan: Stable, pending dc on current abx for 9 more days, s/p PICC, pt to follow with Dr Castro op Result Diagram: 10/02/18 0439 10/02/18 0439 Results 24hrs Laboratory Tests Test 10/02/18 04:39 White Blood Count 4.4 L Red Blood Count 3.60 L Hemoglobin 11.3 L Hematocrit 33.5 L Mean Corpuscular Volume 93.1 Mean Corpuscular Hemoglobin 31.4 Mean Corpuscular Hemoglobin Concent 33.7 Red Cell Distribution Width 11.9 Platelet Count 275 Mean Platelet Volume 10.4 Immature Granulocytes % 0.200 Neutrophils % 45.4 Lymphocytes % 46.9 Monocytes % 5.5 Eosinophils % 1.8 Basophils % 0.2 Nucleated Red Blood Cells % 0.0 Immature Granulocytes # 0.010 Neutrophils # 2.0 Lymphocytes # 2.1 Monocytes # 0.2 L Eosinophils # 0.1 Basophils # 0.0 Nucleated Red Blood Cells # 0.0 Sodium Level 139 Potassium Level 3.8 Chloride Level 104 Carbon Dioxide Level 25 Anion Gap 10 Blood Urea Nitrogen 8 Creatinine 0.58 L Est Glomerular Filtrat Rate mL/min > 60 Glucose Level 107 Calcium Level 8.8 Phosphorus Level 3.2 Magnesium Level 1.7 Consultation Date/Type/Reason Admit Date/Time Sep 22, 2018 at 01:17 Initial Consult Date 1/9/19 Type of Consult id Requesting Provider: VAIBHAV SKINNER Exam/Review of Systems Vital Signs Vitals Vital Signs Date Temp Pulse Resp B/P (MAP) Pulse Ox O2 O2 Flow FiO2 Time Delivery Rate 10/02/18 98.3 78 18 116/77 95 14:23 (90) 10/01/18 Room Air 14:30 Intake and Output 10/01/18 10/01/18 10/02/18 1515:00 23:00 07:00 IntakeIntake Total 1070 ml 510 ml 1150 ml OutputOutput Total 320 ml 20 ml 20 ml BalanceBalance 750 ml 490 ml 1130 ml Medications Medications Current Medications Morphine Sulfate (morphine SULFATE (PF)) 2 mg Q4H PRN IV moderate pain Last administered on 09/25/18at 03:03; Admin Dose 2 MG; Start 09/22/18 at 02:30 Morphine Sulfate (morphine) 4 mg Q4H PRN IV SEVERE PAIN LEVEL 7-10 Last administered on 09/23/18at 15:56; Admin Dose 4 MG; Start 09/22/18 at 02:30 Ondansetron HCl (Zofran Inj) 4 mg Q4 PRN IV NAUSEA AND/OR VOMITING Last administered on 09/22/18at 20:43; Admin Dose 4 MG; Start 09/22/18 at 02:30 IV Flush (NS 3 ml) 3 ml PER PROTOCOL IV ; Start 09/22/18 at 02:30 Acetaminophen (Tylenol Tab) 650 mg Q6H PRN PO PAIN LEVEL 1-3 OR FEVER Last administered on 09/29/18at 14:13; Admin Dose 650 MG; Start 09/22/18 at 02:30 Docusate Sodium (Colace) 100 mg Q12H PRN PO CONSTIPATION; Start 09/22/18 at 02:30 Bisacodyl (Dulcolax) 5 mg DAILY PRN PO CONSTIPATION; Start 09/22/18 at 02:30 Heparin Sodium (Porcine) (Heparin (5000 Units/1ml)) 5,000 unit Q12 SC Last administered on 10/02/18at 08:32; Admin Dose 5,000 UNIT; Start 09/23/18 at 10:20 Naproxen (Naprosyn) 500 mg BID PRN PO PAIN LEVEL 1-3; Start 09/25/18 at 09:00 Sodium Chloride (Deep Sea) 2 spray BID NASAL Last administered on 10/02/18 08:32; Admin Dose 2 SPRAY; Start 09/26/18 at 13:30 Phenol (Cepastat Lozenge) 1 lozenge Q1H PRN MT sore throat Last administered on 09/29/18 20:27; Admin Dose 1 LOZENGE; Start 09/26/18 at 12:30 Benzonatate (Tessalon) 100 mg TID PRN PO cough Last administered on 10/02/18 14:36; Admin Dose 100 MG; Start 09/26/18 at 12:30 Vancomycin HCl (Vanco Iv Per Pharmacy) VANCOMYCIN PER PHARMACY PER PROTOCOL XX ; Start 09/29/18 at 09:00 Meropenem/Sodium Chloride 50 ml @ 100 mls/hr Q8 IVPB Last administered on 10/02/18 14:36; Admin Dose 100 MLS/HR; Start 09/29/18 at 22:00 Vancomycin HCl 1.5 gm/Sodium Chloride 250 ml @ 83.333 mls/ hr Q12H IVPB Last administered on 10/02/18 09:55; Admin Dose 83.333 MLS/HR; Start 10/01/18 at 22:00 IV Flush (NS 10 ml) 10 ml PRN PRN IV IV PROTOCOL; Start 10/02/18 at 11:30 STEPHANIE BARRERA NP Oct 02, 2018 14:54
== END 2018-10-02 17:32 | disposition home health service (06) | DRG 417 ==
LOC: PP2 09-22 01:17
PROVIDERS: ADMIT Internal Medicine; ATTEND Internal Medicine
PROC: 0FB04ZX Excision of Liver, Percutaneous Endoscopic Approach, Diagnostic (ICD-10-PCS; 2018-09-22)
PROC: 0FT44ZZ Resection of Gallbladder, Percutaneous Endoscopic Approach (ICD-10-PCS; principal; 2018-09-22 19:30)
PROC: 0FC98ZZ Extirpation of Matter from Common Bile Duct, Via Natural or Artificial Opening Endoscopic (ICD-10-PCS; 2018-09-23)
PROC: 02HV33Z Insertion of Infusion Device into Superior Vena Cava, Percutaneous Approach (ICD-10-PCS; 2018-10-02)
DX: K80.66 Calculus of gallbladder and bile duct with acute and chronic cholecystitis without obstruction (principal); K65.1 Peritoneal abscess; T81.44XA Sepsis following a procedure, initial encounter; T81.43XA Infection following a procedure, organ and space surgical site, initial encounter; R05 Cough; K57.90 Diverticulosis of intestine, part unspecified, without perforation or abscess without bleeding; K40.90 Unilateral inguinal hernia, without obstruction or gangrene, not specified as recurrent; K76.0 Fatty (change of) liver, not elsewhere classified; E66.9 Obesity, unspecified; Z68.33 Body mass index [BMI] 33.0-33.9, adult
CPT/HCPCS: 36569; 71045; 73560; 74150; 74176; 74330; 76937; 78226; 80048; 80053; 80061; 80202; 81001; 83036; 83605; 83690; 83735; 84100; 84443; 85025; 85610; 85730; 87040; 87086; 88304; 88307; 88313; A9537; C1769; J0690; J1100; J1170; J1644; J2185; J2250; J2270; J2274; J2370; J2405; J2543; J2710; J3010; J3370; J7030; J7040; J7050; Q9967